=== PATIENT | male | born 1935 | race Caucasian/White ===

== ENCOUNTER → 2019-07-06 14:53 | Outpatient (CLI) | payer MEDICARE, OTHER, SELFPAY ==
[2019-06-16 12:41] VITALS: BMI 31.6
--- NOTE | 2019-07-06 14:54 | RAD_ITS ---
STUDY: X-RAY - PELVIS AND RIGHT HIP REASON FOR EXAM: Male, 84 years old. RIGHT HIP AND KNEE PAIN, DIFFICULTY STRAIGHTENING RT LEG TECHNIQUE: History views of the pelvis and hip. COMPARISON: None. FINDINGS: There is severe osteoarthritis of the right hip joint degenerative narrowing of the superior, axial and inferior compartments of the joint with buttressing of the femoral neck. There are no fractures. There are minimal degenerative changes of the left hip joint. The superior and inferior pubic rami are normal. Both sacroiliac joints are normal. RAD/HIP, UNI W/ Pelvis 2-3 Views IMPRESSION: Severe osteoarthritis of the right hip joint. No fracture Electronically Signed: Eddie Elliott MD at 3:06 EST Tel , Service support ,
--- NOTE | 2019-07-06 14:54 | RAD_ITS ---
STUDY: X-RAY - RIGHT KNEE REASON FOR EXAM: Male, 84 years old. RIGHT HIP AND KNEE PAIN, DIFFICULTY STRAIGHTENING RT LEG TECHNIQUE: 4 view(s) of the knee. COMPARISON: None. FINDINGS: The bony enthesophytes from the superior and inferior margins of the patella with mild soft tissue swelling in the prepatellar region. The quadriceps and patellar tendons are normal. There is no knee joint effusion. There are no acute fractures or dislocations. RAD/Knee 4 or More Views IMPRESSION: No fractures. No knee joint effusion. Small bony enthesophytes from the superior and inferior margins of the patella Electronically Signed: Eddie Elliott MD at 7:48 EST Tel , Service support ,
== END ==
LOC: HPRAD 14:54
PROVIDERS: PCP Internal Medicine; Referring Provider Orthopaedic Surgery; Visit Provider Orthopaedic Surgery
DX: M25.551 Pain in right hip (principal); M25.561 Pain in right knee
CPT/HCPCS: 73502; 73564

== ENCOUNTER → 2019-08-09 | Outpatient (CLI) | payer MEDICARE, OTHER, SELFPAY ==
[2019-08-08 12:54] VITALS: BMI 32.1
[2019-08-09 17:51] LABS: BNP,B-Type NATRIURETIC PEPTIDE 90.4 pg/mL (0-100)
[2019-08-09 17:56] LABS: Anion Gap 2 (5-15); BUN 17 mg/dL (7-18); BUN/Creat Ratio 19.2 RATIO (10-20); Calcium,Total 9.5 mg/dL (8.5-10.1); Chloride 104 mmol/L (98-107); Creatinine, Serum 0.89 mg/dL (0.70-1.30); EST Glomerular Filtration Rate 87 mL/min (>60); Est Glom Filt Rate - Afr Amer 106 mL/min (>60); Glucose 112 mg/dL (74-106); Potassium 3.5 mmol/L (3.5-5.1); Sodium Level 139 mmol/L (136-145)
== END | disposition home or self-care (01) ==
LOC: MTLAB 14:43
PROVIDERS: PCP Internal Medicine; Referring Provider Physician Assistant Medical; Visit Provider Physician Assistant Medical
DX: I11.0 Hypertensive heart disease with heart failure (principal); I50.30 Unspecified diastolic (congestive) heart failure
CPT/HCPCS: 36415; 80048; 83880

== ENCOUNTER 2019-08-19 15:00 | Outpatient (RCR) | payer MEDICARE, OTHER, SELFPAY ==
[2019-07-06 14:56] VITALS: BMI 31.6
--- NOTE | 2019-07-13 15:09 | HP.PTEVAL ---
Patient's Visit Information MADINA CHOWDHURY is a 84 year old M referred to Physical Therapy by Venkat Hernandez DO with a diagnosis of R hip OA. Date of Evaluation: 07/13/19 Physical Therapist: Randy Velarde PT, ATC - Visit Plan Frequency: 2-3x /Week Duration: 4-6 Weeks Plan: R LE stretching (HS's, ITband, sartorius), strengthening, DTR, line patroller, foam roller, and HEP - Subjective Findings: Pt reports he has been dealing with R hip pain for several years. Pt reports he has had xrays which revealed bone on bone. Pt reports he also feels as though he has very tight musculature in his LE's. Pt reports he has difficulty with sleep secondary to pain and has to sleep on a chair secondary to hip pain. Pt reports he believes he injured his R LE from an injury where his loaded and seperated his R Leg from his L LE. Pt reports his R LE will on occasion feel like it is going to give out on him. Pt reports he has to negotiate stairs one step at a time. Pt reports he is also not able to drive secondary to pain. 2/10 at rest, 7/10 at worst. - Pain R hip Pain Intensity (Out of 10): 2 Pain Intensity Range: 7 - Objective Neuro: B LE sensation is WNL to light touch. B achilles reflex= 2/3. Palpation: Sore on greater trochanter. No obvious deformity. MMT: B LE's grossly 4+/5. flexibility: Pt is severely limited with HS's, ITband, and quads - Goals Goal 1:: Decrease R hip pain x 50% to aid with sleep Goal Time Frame: 4-6 Weeks Goal 2:: Increase R LE flexibility x 1 grade to aid with decreasing R LE pain Goal Time Frame: 4-6 Weeks Goal 3:: Increase R LE strength x 1 grade to aid with decreasing R hip pain Goal Time Frame: 4-6 Weeks Goal 4:: I with HEP Goal Time Frame: 4-6 Weeks - Rehabilitation Potential Physical Therapy Diagnosis: R hip pain, weakness, and limited R hip ROM secondary to degenerative changes in R hip. Rehabilitation Potential: Good - Anticipated Interventions Patient/Client Instruction: Educate patient on: Condition, Plan of Care For the Purpose of:: To improve self management Therapeutic Exercise to Include: Strength training, Endurance training, Flexibilty training, Active ROM For the Purpose of:: To decrease pain, To increase ROM, To improve muscle performance and motor function Cryotherapy (ice pack, ice massage): Yes Thermo therapy (hot pack): Yes Ultrasound (thermal/non thermal): Yes For the Purpose of:: To decrease pain Thank you for the opportunity to evaluate your patient. For Medicare and Medicare HMO plans, please review the plan of care and approve it. It will need to be FAXED BACK to us at [phone] for Medicare purposes. For Medicare only, by signing this I certify the plan of care. Please let me know if there are questions or concerns regarding this plan of care. Physician Signature: Date:
--- NOTE | 2019-08-12 14:58 | HP.PTREVAL ---
Venkat Hernandez, DO, It has been my pleasure to treat MADINA CHOWDHURY over the last 14 visits for R hip OA. Please see the progress note below for an update on the physical therapy plan of care! Subjective: Pt reports he feels more confident with ambulation Objective/Function: R hip pain 08/15 this date. still occasional sleep difficulty at this time. R hip strength now 5/5 throughout. R LE flexibility now much improved. Pt is not I with HEP Plan Plan: Cont with 2 more appointments to focus on HEP Goals Goal 1:: Decrease R hip pain x 50% to aid with sleep Goal Time Frame: 4-6 Weeks Goal Progress: Goal Met Goal 2:: Increase R LE flexibility x 1 grade to aid with decreasing R LE pain Goal Time Frame: 4-6 Weeks Goal Progress: Goal Met Goal 3:: Increase R LE strength x 1 grade to aid with decreasing R hip pain Goal Time Frame: 4-6 Weeks Goal Progress: Goal Met Goal 4:: I with HEP Goal Time Frame: 4-6 Weeks Goal Progress: Progressing Anticipated Interventions Patient/Client Instruction: Educate patient on: Condition, Plan of Care For the Purpose of:: To improve self management Therapeutic Exercise to Include: Strength training, Endurance training, Flexibilty training, Active ROM For the Purpose of:: To decrease pain, To increase ROM, To improve muscle performance and motor function Cryotherapy (ice pack, ice massage): Yes Thermo therapy (hot pack): Yes Ultrasound (thermal/non thermal): Yes For the Purpose of:: To decrease pain Please do not hesitate to contact me at [phone] by phone or if you have questions or concerns regarding this new plan of care! Sincerely, Randy Velarde, PT, ATC
--- NOTE | 2019-08-19 15:46 | HP.PTDCSUM ---
It has been my pleasure to treat MADINA CHOWDHURY referred by Venkat Hernandez DO, with the diagnosis of R hip OA for a total of 16 visit(s). Discharge Date: Please see the following information for a summary of their discharge status. Subjective: I slept wrong on it last night R hip Pain Intensity (Out of 10): 6 % Improvement: 75 Objective/Function: Pt kaia Rx well. Pt now I with HEP Goal 1:: Decrease R hip pain x 50% to aid with sleep Goal Progress: Goal Met Goal 2:: Increase R LE flexibility x 1 grade to aid with decreasing R LE pain Goal Progress: Goal Met Goal 3:: Increase R LE strength x 1 grade to aid with decreasing R hip pain Goal Progress: Goal Met Goal 4:: I with HEP Goal Progress: Goal Met Plan: Discharge If there are questions or concerns regarding this patient's physical therapy, please feel free to call me at [phone]. Thank you for the referral of this patient. Sincerely, Randy Velarde, PT, ATC
== END 2019-08-19 19:00 | disposition home or self-care (01) ==
LOC: PT 15:00
PROVIDERS: PCP Internal Medicine; Visit Provider Orthopaedic Surgery
DX: M16.11 Unilateral primary osteoarthritis, right hip (principal); M70.61 Trochanteric bursitis, right hip; M62.48 Contracture of muscle, other site
CPT/HCPCS: 97110; 97161; 97164

== ENCOUNTER → 2020-01-05 | Outpatient (CLI) | payer MEDICARE, OTHER, SELFPAY ==
[2019-08-08 12:54] VITALS: BMI 32.1
[2019-12-22 11:26] VITALS: BMI 30.4
--- NOTE | 2020-01-05 12:49 | ECHOCS_ITS ---
Reason For Study: AFIB/FLUTTER Procedure This was a 2D Doppler, Color Flow transthoracic echocardiogram. The study was technically difficult. Due to poor accoustic windows. Contrast injection was performed. Exam performed in department. Left Ventricle Normal LV size. Mild concentric left ventricular hypertrophy. Left ventricular systolic function is normal. The estimated ejection fraction is 65 %. No regional wall motion abnormalities noted. Right Ventricle Normal RV size. Normal systolic function. Atria Normal left atrium. Normal right atrium. Mitral Valve Normal mitral valve. Tricuspid Valve Normal tricuspid valve. Pulmonic Valve Normal pulmonic valve. Great Vessels Normal aortic root. The pulmonary artery is normal size. Normal inferior vena cava. Pericardium/Pleural No pericardial effusion. Medication 22 gauge I.V. with prn adaptor inserted into right arm. Diluted definity 2.5ml given slow IV push to enhance endocardial definition. MMode/2D Measurements & Calculations LVIDd: 4.8 cm IVSd: 1.2 cm Ao root diam: 3.6 cm LVIDs: 2.8 cm LVPWd: 1.2 cm FS: 40.4 % LAV(MOD-bp): 72.0 ml LA A4 area: 19.9 cm2 LA dimension(2D): 4.1 cm LAV(MOD-bp) Indexed: 34.4 ml/m2 LAV(MOD-sp2): 86.7 ml LAV(MOD-sp4): 55.4 ml RA A4 area: 16.9 cm2 Time Measurements MV dec time: 0.13 sec Doppler Measurements & Calculations MV E max guilherme: 126.0 cm/sec PA V2 max: 86.2 cm/sec MV A max guilherme: 65.0 cm/sec MV E/A: 1.9 Interpretation Summary Normal LV size. Left ventricular systolic function is normal. The estimated ejection fraction is 65 %. Contrast injection was performed. Ordering Physician: Amador Dietrich Referring Physician: Marlin Cornelius Performed By: Anabel Guerrero RDCS, RVT
== END | disposition home or self-care (01) ==
LOC: CVS 12:49
PROVIDERS: PCP Internal Medicine; Referring Provider Physician Assistant Medical; Visit Provider Physician Assistant Medical
DX: I48.91 Unspecified atrial fibrillation (principal); I48.92 Unspecified atrial flutter; R60.0 Localized edema
CPT/HCPCS: 93306; Q9957; A4216; C8929

== ENCOUNTER 2021-01-04 07:17 | Outpatient (RCR) | payer MEDICARE, OTHER, SELFPAY ==
[2020-12-28 11:18] VITALS: BMI 31.3
--- NOTE | 2021-01-04 08:44 | HP.PTEVAL_ITS ---
Patient's Visit Information MADINA CHOWDHURY is a 85 year old M referred to Physical Therapy by Dr. Venkat Hernandez DO with a diagnosis of R hip OA. Date of Evaluation: 01/04/21 Physical Therapist: Randy Velarde, PT, ATC - Visit Plan Frequency: 1x/Week Duration: 1 Week Plan: I issued and instructed pt on a HEP of seated HS, quad, piriformis, and gastroc stretches. Pt is now I with those stretches and is discharged at this time. - Subjective Pt reports he has been in severe hip pain for a long time. Pt reports he will be getting a THR in the near future, but needs to increase strength and flexibility prior to surgery. Pt reports he often cramps up at nights and has difficulty with sleep secondary to R hip pain. Pt reports he has had to sleep in a chair for the past 2 years secondary to pain. Pt also notes he has significant difficulty with car transfers secondary to R hip complications. Pt notes he would have had this THR performed a long time ago but COVID hit and he was unable to consider that as an option at that time. No R LE tingling or numbness at this time. Pt notes he has stairs in his house to the basement that he does negotiate at times which are difficult and he notes he must negotiate them one step at a time. 3/10 pain at rest, 8/10 pain at its worst. - Pain R hip pain Pain Intensity (Out of 10): 3 Pain Intensity Range: 8 - Objective Neuro: B LE sensation is WNL to light touch. B patellar reflex= 1/3. MMT: R hip IR and ER= 3-/5, all other measurements 4/5. L hip 5/5 throughout. ROM: R hip i s moderately limited in all planes. L hip is WFL. Flexibility: Pt is moderately limited with all R LE. - Goals Goal 1:: I with HEP after eval - Rehabilitation Potential Physical Therapy Diagnosis: Pt has R hip pain, weakness, and limited ROM secondary to R hip OA Rehabilitation Potential: Excellent - Anticipated Interventions Patient/Client Instruction: Educate patient on: Condition, Plan of Care For the Purpose of:: To improve self management Therapeutic Exercise to Include: Flexibilty training For the Purpose of:: To decrease pain, To increase ROM Thank you for the opportunity to evaluate your patient. For Medicare and Medicare HMO plans, please review the plan of care and approve it. It will need to be FAXED BACK to us at [phone] for Medicare purposes. For Medicare only, by signing this I certify the plan of care. Please let me know if there are questions or concerns regarding this plan of care. Physician Signature: Date:
== END 2021-01-04 19:00 | disposition home or self-care (01) ==
LOC: PT 07:17
PROVIDERS: PCP Internal Medicine; Referring Provider Orthopaedic Surgery; Visit Provider Orthopaedic Surgery
DX: M16.11 Unilateral primary osteoarthritis, right hip (principal); M25.651 Stiffness of right hip, not elsewhere classified
CPT/HCPCS: 97110; 97161

== ENCOUNTER → 2021-01-22 13:34 | Outpatient (CLI) | payer MEDICARE, OTHER, SELFPAY ==
[2021-01-15 08:53] VITALS: BMI 32.3
--- NOTE | 2021-01-22 13:35 | CT_ITS ---
STUDY: CT SCAN LOWER EXTREMITY RIGHT REASON FOR EXAM: Male, 85 years old. Templating right SCOTTY RADIATION DOSAGE (If Supplied By Facility): CTDIvol = ( 23.38 ) mGy, DLP = ( 1387.24 ) mGycm. Individualized dose optimization techniques were used for this CT.? TECHNIQUE: Multiple axial tomographic images of the right lower extremity was obtained. Coronal and sagittal reconstructions obtained as well. COMPARISON: None. FINDINGS: There is a marked degree of joint space narrowing and osteoarthritis involving the right hip joint. Subchondral cysts are seen in the right femoral head and in the acetabulum. Marginal osteophytes are seen as well. Imaging of the right knee joint was obtained. Mild degree of joint space narrowing involving the medial compartment of the knee joint. CT/Extremity Lower without Contra IMPRESSION: Moderate degree of osteoarthritis involving the right hip joint. Electronically Signed: Tristin De La Torre MD at 15:42 EDT , Service support ,
== END ==
PROVIDERS: PCP Internal Medicine; Referring Provider Orthopaedic Surgery; Visit Provider Orthopaedic Surgery
DX: M16.11 Unilateral primary osteoarthritis, right hip (principal)
CPT/HCPCS: 73700

== ENCOUNTER 2021-02-05 16:14 | Inpatient (IN) | payer MEDICARE, OTHER, SELFPAY ==
[2021-01-15 08:53] VITALS: BMI 32.3
--- NOTE | 2021-01-30 12:37 | EKG12_ITS ---
Test Reason : PREOP Blood Pressure : / mmHG Vent. Rate : 070 BPM Atrial Rate : 357 BPM P-R Int : 000 ms QRS Dur : 146 ms QT Int : 436 ms P-R-T Axes : 000 -66 098 degrees QTc Int : 470 ms Ventricular-paced rhythm Abnormal ECG Confirmed by JUSTIN DONALD, CRISTOBAL ([id number]), editorial cartoonist KENNETH LUJAN ([id number]) on 01/31/2021 10:59:56 AM Referred By: Venkat Hernandez Confirmed By:CRISTOBAL ANDERSON MD
[2021-01-30 14:13] LABS: Absolute Lymphocyte Count 1.23 X10^3/uL (0.83-4.51); Absolute Neutrophil Count 3.5 X10^3/uL (2.0-7.7); Basophil# 0.08 X10^3/uL; Eosinophil# 0.16 X10^3/uL; Eosinophils% 2.1 % (0-5); Hematocrit 31.2 % (40-54); Hemoglobin 10.1 g/dL (13.0-16.5); Lymphocyte # 1.23 X10^3/ul (0.83-4.51); Lymphocyte % 15.8 % (19-41); Mean Corp Hgb Conc 32.4 g/dL (32-36); Mean Corpuscular Hgb 37.3 pg (27.0-32.0); Mean Corpuscular Volume 115.1 fL (80-94); Mean Platelet Vol. 12.4 fl (6.2-12.0); Monocyte# 2.68 X10^3/uL; Monocyte% 34.4 % (0-10); NRBC Flagged by Analyzer 0 % (0-5); Neutrophil # 3.46 X10^3/uL (2.7-7.7); Neutrophil % 44.5 % (47-70); POSITIVE DIFFERENTIAL YES; Platelet Count 139 K/mm3 (150-450); RBC Distribution Width CV 14.2 % (11.6-14.6); RBC Distribution Width SD 60.3 fl (35.1-43.9); Red Blood Count 2.71 M/mm3 (4.6-6.2); White Blood Count 7.8 K/mm3 (4.4-11.0)
[2021-01-30 14:15] LABS: Differential Indicated SCAN CRITERIA MET
[2021-01-30 14:22] LABS: International Normalized Ratio 1.2; Prothrombin Time (Protime)PT. 14.9 SECONDS (11.7-14.9)
[2021-01-30 14:23] LABS: Partial Thromboplast Time 34.9 Seconds (24.1-36.2)
[2021-01-30 14:33] LABS: Magnesium 2.1 mg/dL (1.6-2.6)
[2021-01-30 14:57] LABS: Anion Gap 4 (5-15); BUN 17 mg/dL (7-18); BUN/Creat Ratio 17.4 RATIO (10-20); Chloride 105 mmol/L (98-107); Creatinine, Serum 0.98 mg/dL (0.70-1.30); EST Glomerular Filtration Rate 78 mL/min (>60); Est Glom Filt Rate - Afr Amer 94 mL/min (>60); Glucose 90 mg/dL (74-106); Potassium 3.9 mmol/L (3.5-5.1); Sodium Level 140 mmol/L (136-145)
[2021-01-31 12:28] LABS: Pathologist Review Reviewed
[2021-02-01 10:46] LABS: Fructosamine 226 umol/L (0-285)
[2021-02-05] VITALS (11 sets, daily range): BP systolic 122–152; BP diastolic 56–79; PULSE 63–77; RESP 16–18; TEMP 36.1–37.3; O2SAT 97–100; BMI 32.1; BMI 32.2
[2021-02-05] MEDS: Lactated Ringers 1,000 ML 125 ML IV ×3 (10:00→22:39)
[2021-02-05] MEDS: Gabapentin 600 MG Tablet PO (10:17)
[2021-02-05] MEDS: Lactated Ringers 1,000 ML 999 ML IV (10:17)
[2021-02-05] MEDS: Acetaminophen 500 MG Tablet 1000 MG PO ×2 (10:17→22:41)
[2021-02-05] MEDS: Lactated Ringers 1,000 ML 100 ML IV (10:18)
[2021-02-05] MEDS: Scopolamine 1mg/72hr Patch 1 PATCH TD (10:18)
[2021-02-05 10:51] LABS: Bedside Glucose 108 mg/dL (70-110)
--- NOTE | 2021-02-05 12:30 | FEM_PTH ---
PATIENT: MADINA CHOWDHURY LOC: [facility] U#:[id number] AGE/SX: 85/M ROOM: CA321 RE02/05/[address]: Dr. Venkat Hernandez DO : 1935 BED: 1 DIS: 02/07/2021 SPEC #: [id number] RECD: 02/05/21 15:45 STATUS: ANISHA NELSON #: [id number] [place]: 02/05/21 12:[address]: Venkat Hernandez DEPT: SURGICAL PATHOLOGY RECD BY: Chinyere Moreno ENTERED: 02/06/21 13:12 SP TYPE: FEM HEAD OTHR DR: DO Dr. Angel Luis St MD Tissues: Femoral region, NOS Procedures: Decalcification bone/plaque Surgery Specimen Level V HEADER OPERATION: ERAS, total hip replacement robotic arm assist PRE-OP DIAGNOSIS: Degenerative joint disease of right hip TISSUE SUBMITTED: Right hip bone and soft tissue MICROSCOPIC DIAGNOSIS Bone and tissue of right hip, Total hip resection: Severe degenerative joint disease. AM;am 02/12/21 MICROSCOPIC DESCRIPTION Slides are reviewed. GROSS DESCRIPTION Received is one container labeled with the patient's name and designated right hip bone and soft tissue. The specimen consists of a puentes femoral head with portion of femoral neck. The femoral head measures 5 x 5 x 4.5 cm and the femoral neck measures 0.5 cm in length. The articular surface displays prominent osteophyte formation, eburnation and bone erosion. Also present in the specimen container are multiple irregular fragments of bone reamings and pink-yellow soft tissue measuring in aggregate 8 x 8 x 2.5 cm. Government Gauger sections are submitted in two cassettes as follows: 1 - soft tissue, 2 - bone after decalcification. / SONU:karma 02/06/21 TC:5 CPT: 54545, 98152
[2021-02-05] MEDS: dexAMETHasone 10 MG/ML Vial IV (13:03)
[2021-02-05] MEDS: Cefazolin 2 GM in 0.9% Normal Saline 100 ML IV (13:14)
--- NOTE | 2021-02-05 15:21 | OP.PCM_ITS ---
Report of Operation Date of Procedure: 02/05/21 Description of Surgical Findings:: Preoperative diagnosis: Right hip DJD Postoperative diagnosis: Same Procedure: CT-guided Makoplasty assisted right total hip arthroplasty Implants: Lincoln Accolade II stem size 7, 127 degree neck angle -5 neck length 62 mm Trident II acetabular shell with 35 mm cancellous screw 36 mm ceramic head Anesthesia: Spinal EBL: 200 cc Complications: None Condition: Stable to PACU Indication for procedure: This is a 85-year-old male who has had long-standing arthrosis of the hip who has failed conservative treatment and wished to undergo total hip arthroplasty. We did discuss operative versus nonoperative intervention including risks of bleeding, infection , nerve artery tissue damage, need for further surgery, fracture, leg length discrepancy dislocation blood clot and need for postoperative physical therapy and postoperative expectations. An informed consent was signed. Procedure: Patient was met in the preoperative holding area once again the operative extremity was identified by both patient and physician and was marked. Patient was met by anesthesia . Anesthesia was started. patient was then positioned in the lateral decubitus position on a well-padded pegboard with an axillary roll. All bony prominences were checked and padded. The patient was prepped and draped in the usual sterile fashion. A timeout was called to ensure the proper patient procedure and extremity were being contemplated. Anatomic landmarks were palpated and marked for a standard posterior lateral approach. Prior to this the ASIS was palpated and 3 fingerbreadths proximal to this 3 pins were placed at a 45 degree angle into the iliac crest with good purchase, stab incisions were made with a 15 blade into the skin prior to placement. The Makoplasty array was then secured. A 10 blade scalpel was used to make a posterior incision through the skin and subcutaneous tissue. retractors were used and electrocautery was used to maintain meticulous hemostasis and dissect full-thickness flaps until the gluteal fascia was reached. The gluteal fascia was incised in line with the gluteal fibers. The bursal tissue was then freed from the underside and a Charnley retractor was placed. The femoral trochanteric checkpoint was placed and leg length was assessed using the trochanteric checkpoint and an EKG lead that was placed on the knee prior to prepping the leg .the fat pad was then elevated off of the external rotators with electrocautery and the external rotators were dissected off of the greater trochanter including the piriformis and were tagged with #1 Ethibond for later repair. The joint capsule opened with posterior trapdoor technique. The hip was surgically dislocated. The measurement on the preoperative CT from the top of the lesser trochanter to the femoral neck cut was marked Hohmann was placed a round the lesser trochanter. A neck cutting guide was used to chayito the neck with a Bovie and an oscillating saw was used complete the femoral neck cut. The femoral head was then removed and sized. We then turned our attention to the acetabulum. A Bovie was used to make a perforation in the anterior joint capsule and a Demarco retractor was placed this was repeated in the 6 o'clock position and a wide kelsea was placed there. With a long handled knife the labral and pulvinar tissue were removed. We then registered the acetabulum with the pointing array and confirmed our landmarks. Once the socket was thoroughly prepared and labral tissue and pulvinar was removed we single reamed with the robotic arm. We then used the robotic arm to position the acetabular implant and impacted it into place under robotic guidance. We then proceeded to place a posterior superior screw by drilling first measuring and inserting the screw. We then inserted a trial liner. And turned our attention back to the femur at this point a femoral elevator was used. As well as a pointed wide Hohmann around the lesser trochanter and a Hohmann to help retract the gluteus medius. A box chisel was used to remove excess lateral neck followed by a canal finder and a lateralizing reamer. This was followed by sequential broaches. Attention was made of the version within the canal based on preoperative templating. Once the final broach was seated we then trialed reduced the hip it was determined that a 127 degree neck angle with a -5 neck length was the appropriate size as this was 5 mm longer than his preoperative length and for 3 mm shorter than his contralateral, when I had a 0 or a -2.5 I cannot achieve full extension of the hip therefore decided to meet him in the middle and lengthen him by 5 compared to his preop. . We then checked stability with shuck testing as well as flexion and internal rotation. then proceeded with hip extension and checked leg lengths at the knees and heels as well as with the trochanteric checkpoint and knee EKG lead. At this point trials were removed. A liner was inserted to the cup. The femoral stem was inserted. We re-trialed and then proceeded to impact the femoral head onto the Chu taper. We then surgically reduce the hip check stability again and leg lengths and were satisfied. Betadine rinse was allowed to sit for 5 minutes while everyone changed their gloves. Thorough irrigation was performed. Followed by closure of the external rotators with #2 FiberWire followed by closure of gluteal fascia with #1 Ethibond. 0 Vicryl fat stitches and 2-0 Vicryl subcutaneous stitches and sherman in the skin. A pulls were placed in the pin sites over the iliac crest with Xeroform 4 x 4 and OpSite. dressing was applied to incisional area with Mepilex Ag and an abduction pillow was placed. Patient tolerated the procedure well there was no intraoperative complications all counts were correct and the patient was brought back to the PACU in stable condition
--- NOTE | 2021-02-05 15:21 | PCM.HP.BLA ---
History and Physical Date of Admission: 02/05/21 Date of Service: 01/09/21 MR#:[id number]: MADINA CHOWDHURYRep #:[id number] Provider:Dr. Venkat Hernandez DOAge/Sex: 85/M Location:[place]:Signed Intake Vital Signs 01/09/21 13:47 Height 5 ft 8.31 in Weight: 202 lb 4 oz BMI 30.4 Intake Visit Reasons: RIGHT HIP Accompanied by: Spouse Allergies pine Allergy (Uncoded 12/28/20 11:24) Shortness of breath Medications flaxseed oil-omega 3,6,9 1 ea PO BID 05/22/14 [History Confirmed 01/09/21] multivitamin with folic acid 1 tab PO DAILY 05/22/14 [History Confirmed 01/09/21] omega-3 fatty acids 500 mg PO DAILY 05/22/14 [History Confirmed 01/09/21] calcium-vitamin D3-vitamin K 500 mg-500 unit-40 mcg chewable tablet 2 tab PO QDAY ea 09/03/17 [History Confirmed 01/09/21] lisinopril 20 mg tablet 20 mg PO DAILY #90 tab 10/27/17 [Rx Confirmed 01/09/21] hydrochlorothiazide 25 mg tablet 25 mg PO DAILY 08/08/19 [History Confirmed 01/09/21] apixaban 5 mg tablet 5 mg PO BID #180 tab 11/10/20 [Rx Confirmed 01/09/21] glucosamine-chondroitin 500 mg-400 mg capsule 1 cap PO DAILY cap 12/28/20 [History Confirmed 01/09/21] [facility] Medical History (Updated 12/28/20 @ 12:[address] 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 Amador Dietrich MD) Smoking Status: Former smoker alcohol intake: current substance use type: does not use HPI RIGHT HIP Details: Parts of this documentation were recorded by a scribe, this documentation accurately reflects the service provided and the decisions made by me, Dr. Venkat Hernandez DO 01/09/21 0743. MADINA CHOWDHURY is a 85 year old M here today to discuss getting a hip replacement. Last hip x-ray: 12/28/20. Onset: two years. Pain is located lateral right hip. Patient did begin stretching exercises. Patient states he pushed himself too far with one of his exercises. Pain will intermittently radiate to his right thigh. Patient would like to discuss having a total right hip replacement. Denies previous spine surgery. Ortho Exam General General: Yes no acute distress and Yes well groomed Neurologic: Yes alert and Yes oriented x3 Psychologic: Yes reasonable and appropriate Right Hip HIP: Right Knee Skin/Wound: Yes swelling Knee ROM: Yes ROM-Extension -20 to 0 Examination: No Med jt line tenderness and No Lat jt line tenderness KNEE: no joint effusion collaterals are good Right Hip Skin: No soft tissue swelling and No Erythema internal rotation @90 degree flexion: 0 degrees external rotation @90 degree extension: 20 degrees HIP: Significant hip stiffness with reproduction of pain with hip range of motion He does have bilateral lower extremity edema worse on the left Supplemental Info 07/06/2019 x-ray right hip: severe femoral acetabular DJD [id number] superiorly 07/06/2019 x-ray right knee: Mild degenerative changes worse patellofemoral Coding Level of Care Code Off vis,est,level 3 Diagnoses Degenerative joint disease of right hip M16.11 Osteoarthritis type: primary Assessment and Plan Assessment and Plan (1) Degenerative joint disease of right hip: Status: Acute Qualifiers: Osteoarthritis type: primary Qualified Code(s): M16.11 - Unilateral primary osteoarthritis, right hip Plan - Dr. Venkat Hernandez DO: Personally reviewed the patient's medical history, medications, surgeries and recent exams if available. Patient has advanced right hip arthrosis and is failed conservative treatment. We did discuss risk benefits and alternatives of total hip arthroplasty including risk of bleeding infection nerve artery tissue damage need for further surgery continued pain postoperative hip precautions leg length discrepancy and post operative expected course. Due to his anticoagulation status and cardiac history and age patient will be full admission. We will need to obtain a cardiac clearance preoperatively in addition he will need to be off his Eliquis for 72 hours preoperatively and will resume this 12 hours postoperatively. Although he is not supposed to be taking NSAIDs he does occasionally take Motrin we did mortgage loan counselor him on this and he should definitely not take any for 7 days prior surgery. We will also need to obtain a preoperative CT scan for the use of the MAKOplasty robotic equipment Patient's goal is to be ambulatory and without any restrictions by Nickie when his daughter is to arrive I think we will be able to make this goal ahead of time . Explained patient cannot take any NSAIDs seven days prior to surgery. Patient may take Tylenol up until the day of surgery. Patient can take two of the Extra Strength Tylenol four times day. Advised patient will use a walker post-op and then will be transitioned to a cane. All questions answered. Patient in agreement of plan. Follow up two weeks post-op or sooner if pain, swelling, numbness or associated symptoms, or concerns develop. 01/09/21 1424<Electronically signed by Venkat Hernandez DO>Date Venkat Hebertigner Signature:Date I have re-examined the patient. There are no clinical changes since date of exam
--- NOTE | 2021-02-05 15:40 | RAD_ITS ---
STUDY: X-RAY - PELVIS AND RIGHT HIP REASON FOR EXAM: Male, 85 years old. Post Op -- AP both hips on single aissatou/lateral of op hip PACU TECHNIQUE: 2 views of the pelvis and hip. COMPARISON: Pelvic x-ray dated December 28, 2020 FINDINGS: Status post surgical resection of the right femoral head and neck. The proximal one third femoral prosthetic component is well placed within the intramedullary cavity as well as the acetabular cup. Both prosthetic components demonstrate good bony contact and alignment. Expected postoperative changes of the overlying soft tissues including gas and swelling. Surgical sherman are also present. No occult fracture seen. Mild osteophytic changes of the left hip joint noted. RAD/Hip Min 2 Views (Portable) IMPRESSION: Status post right hip arthroplasty. Electronically Signed: Maury Grijalva MD at 17:33 EDT , Service support ,
[2021-02-05] MEDS: Cefazolin 1 GM/50 ML BAG IV (18:12)
[2021-02-05] MEDS: Ketorolac 15 MG/ML Vial IV (19:57)
[2021-02-05] MEDS: 0.9% NaCl Peripheral Flush Adult/Peds IV (19:58)
[2021-02-05] MEDS: Senna/Docusate Sodium 1 Tablet 2 TABLET PO (22:41)
[2021-02-06 01:37] VITALS: BMI 32.1
[2021-02-06] MEDS: Cefazolin 1 GM/50 ML BAG IV ×2 (01:52→11:01)
--- NOTE | 2021-02-06 02:10 | NURSING ---
Patient unable to void for 6-8 hours post surgery. Bladder scanned for 771, straight cath placed per order and 1L of clear dark yellow urine was drained. Procedure well tolerated.
[2021-02-06] MEDS: Ketorolac 15 MG/ML Vial IV (02:41)
[2021-02-06] MEDS: 0.9% NaCl Peripheral Flush Adult/Peds IV (02:43)
[2021-02-06 03:00] VITALS: BP 112/53; PULSE 70; RESP 18; TEMP 37.3; O2SAT 95
[2021-02-06] MEDS: oxyCODONE 5 MG Tablet PO (04:09)
[2021-02-06 05:37] VITALS: BMI 32.1
[2021-02-06] MEDS: Acetaminophen 500 MG Tablet 1000 MG PO ×3 (06:46→21:48)
[2021-02-06] MEDS: APIXABAN 5 MG TABLET PO ×3 (06:47→21:48)
[2021-02-06 07:05] LABS: Hematocrit 25.8 % (40-54); Hemoglobin 8.3 g/dL (13.0-16.5); Mean Corp Hgb Conc 32.2 g/dL (32-36); Mean Corpuscular Hgb 37.7 pg (27.0-32.0); Mean Corpuscular Volume 117.3 fL (80-94); Mean Platelet Vol. 12.3 fl (6.2-12.0); Platelet Count 149 K/mm3 (150-450); RBC Distribution Width CV 14.3 % (11.6-14.6); RBC Distribution Width SD 61.9 fl (35.1-43.9); White Blood Count 13.5 K/mm3 (4.4-11.0)
[2021-02-06 07:32] LABS: Anion Gap 9 (5-15); BUN 21 mg/dL (7-18); BUN/Creat Ratio 15.3 RATIO (10-20); Calcium,Total 8.7 mg/dL (8.5-10.1); Chloride 105 mmol/L (98-107); Creatinine, Serum 1.37 mg/dL (0.70-1.30); EST Glomerular Filtration Rate 53 mL/min (>60); Est Glom Filt Rate - Afr Amer 64 mL/min (>60); Estimated Creatinine Clearance 39.53 ml/min; Glucose 122 mg/dL (74-106); Potassium 3.7 mmol/L (3.5-5.1); Sodium Level 139 mmol/L (136-145)
[2021-02-06 09:00] VITALS: BP 111/67; PULSE 80; RESP 18; TEMP 36.6; O2SAT 98
[2021-02-06 09:37] VITALS: BMI 32.1
[2021-02-06] MEDS: Senna/Docusate Sodium 1 Tablet 2 TABLET PO ×2 (10:49→21:48)
[2021-02-06] MEDS: Lactated Ringers 1,000 ML 125 ML IV ×2 (10:49→11:01)
--- NOTE | 2021-02-06 11:14 | PCM.PN.HOSP ---
Subjective Subjective Confused last and pt was having hallucinations of someone getting out of semitruck wearing erwin with a camping bag outside of his room last night. Doing better today. Objective Data Objective Data Vital Signs: Vital Signs Temp Pulse Resp BP Pulse Ox 36.6 C 80 18 111/67 98 02/06/21 09:00 02/06/21 09:00 02/06/21 09:00 02/06/21 09:00 02/06/21 09:00 Oxygen Flow Rate (L/min) 6 Oxygen Delivery Method Room Air Weight: 96.116 kg Body Mass Index (BMI) 32.2 Intake & Output: Intake and Output for Last 24 Hours 02/04/21 02/05/21 02/06/21 23:59 23:59 23:59 Intake Total 4386 / 4386 1075 / 1075 Output Total 1000 / 1000 Balance 4386 / 4386 75 / 75 Lab / Micro Data Result Diagrams: 02/06/21 06:26 02/06/21 06:26 Labs: Laboratory Results - last 24 hr 02/06/21 06:26: WBC 13.5 H, RBC 2.20 L, Hgb 8.3 L, Hct 25.8 L, MCV 117.3 H, MCH 37.7 H, MCHC 32.2, RDW Std Deviation 61.9 H, RDW Coeff of Humza 14.3, Plt Count 149 L, MPV 12.3 H 02/06/21 06:26: Sodium 139, Potassium 3.7, Chloride 105, Carbon Dioxide 25.0, Anion Gap 9, BUN 21 H, Creatinine 1.37 H, Estim Creat Clear Calc 39.53, Est GFR (MDRD) Af Amer 64, Est GFR (MDRD) Non-Af 53 L, BUN/Creatinine Ratio 15.3, Glucose 122 H, Calcium 8.7 Micro: Microbiology 01/30/21 13:28 Swab (Method) Nasal Screen MRSA/MSSA - Final Radiography Diagnostic Testing: Radiology Impression Hip X-Ray 02/05/21 15:40 IMPRESSION: Status post right hip arthroplasty. Electronically Signed: Maury Grijalva MD at 17:33 EDT , Service support , Physical Exam Const alert HEENT Head and Scalp: normocephalic Resp normal respiratory effort, no retractions, no use of accessory muscles and clear to auscultation bilaterally Cardio regular rate, regular rhythm, S1 normal heart sound and S2 normal heart sound GI normal to inspection, nondistended, normoactive bowel sounds, soft to palpation, non-tender and non-distended Assessment & Plan Assessment/Plan (1) Encephalopathy: PLAN: 1. encephalopathy resolved likely toxic due to medications/anesthesia no further work up at this time. 2. HTN stable continue lisinopril/HCTZ 3. s/p Right hip arthroplasty mgmt per ortho 4. VTE prophylaxis: per queenie apixaban DW pt's / Medically stable for discharge. Charges/Coding Visit Charges Inpatient E&M: 28996 Subs Hosp L2
--- NOTE | 2021-02-06 11:34 | CASEMGMT ---
ELAINE PONCE Assessment: Face to Face with pt for initial transition planning/care coordination assessment. ELAINE PONCE introduced self and role at [facility], pt voices understanding and consents to assessment. Pt is A/O x4 and answers all questions appropriately at this time. Pt sitting up in chair with at bedside. Care providers, pharmacy, and demographics verified/updated. Admitting Dx: R total hip robotic PCP: Kana Specialists:queenie Hernandez; Karlo, cardio Preferred Pharmacy: [facility] while inpatient Insurance: [employer], [facility] Prescription Benefit: yes LW/HPOA: Pt states he has a LW/DPOA. He states his DPOA is his Cindi Matthews. He is aware he can bring that in any time to be scanned in to his chart. LNOK: Cindi Matthews, Living Arrangements: Pt lives with in a single story house with 3 steps to enter without a rail. Pt states he has a plan on how to get into his home, then he does not have any steps in the main living area. Pt reports he was I in ADL's prior to surgery. He denies concerns at home. Transportation: Pt drives self and denies concerns with transportation. His is able to transport him. DME/HHC/SNF: Pt has 2 canes, a rented FWW, trf bench and hand held shower. Pt denies hx of HHC or SNF stay. Pt states he is set up with outpatient therapy at [facility] starting tomorrow. Pt states no concerns with going home at time of dc. Pt states no further concerns/needs. CM to follow. Advised pt to ask CM if any further question/concerns/needs arise, voices understanding. Pt Goal: Home with outpt therapy Plan: Home with outpt therapy
[2021-02-06] MEDS: Lisinopril 20 MG Tablet PO (11:44)
[2021-02-06] MEDS: hydroCHLOROthiazide 25 MG Tablet PO (11:45)
--- NOTE | 2021-02-06 12:52 | PCM.PN.ORT ---
Subjective Subjective Patient doing okay in terms of pain control. Had difficult evening with hallucinations still has slight confusion today but feeling better. Denies fevers chills nausea vomiting or chest pain. Objective Data Objective Data Vital Signs: Vital Signs Temp Pulse Resp BP Pulse Ox 97.9 F 80 18 111/67 98 02/06/21 09:00 02/06/21 09:00 02/06/21 09:00 02/06/21 09:00 02/06/21 09:00 Oxygen Flow Rate (L/min) 6 Oxygen Delivery Method Room Air Weight: 211 lb 14.4 oz Body Mass Index (BMI) 32.2 Intake & Output: Intake and Output for Last 24 Hours 02/04/21 02/05/21 02/06/21 23:59 23:59 23:59 Intake Total 4386 / 4386 1125 / 1125 Output Total 1000 / 1000 Balance 4386 / 4386 125 / 125 Lab / Micro Data Result Diagrams: 02/06/21 06:26 02/06/21 06:26 Labs: Laboratory Results - last 24 hr 02/06/21 06:26: WBC 13.5 H, RBC 2.20 L, Hgb 8.3 L, Hct 25.8 L, MCV 117.3 H, MCH 37.7 H, MCHC 32.2, RDW Std Deviation 61.9 H, RDW Coeff of Humza 14.3, Plt Count 149 L, MPV 12.3 H 02/06/21 06:26: Sodium 139, Potassium 3.7, Chloride 105, Carbon Dioxide 25.0, Anion Gap 9, BUN 21 H, Creatinine 1.37 H, Estim Creat Clear Calc 39.53, Est GFR (MDRD) Af Amer 64, Est GFR (MDRD) Non-Af 53 L, BUN/Creatinine Ratio 15.3, Glucose 122 H, Calcium 8.7 Micro: Microbiology 01/30/21 13:28 Swab (Method) Nasal Screen MRSA/MSSA - Final Radiography Diagnostic Testing: Radiology Impression Hip X-Ray 02/05/21 15:40 IMPRESSION: Status post right hip arthroplasty. Electronically Signed: Maury Grijalva MD at 17:33 EDT , Service support , Physical Exam Const no apparent distress General Appearance: cooperative Extremity Extremity Narrative: Right hip dressing clean dry and intact compartments soft neurovascular intact right lower extremity Assessment & Plan Assessment/Plan (1) Encephalopathy: (2) Degenerative joint disease of right hip: QUALIFIERS: Osteoarthritis type: primary Qualified Code(s): M16.11 - Unilateral primary osteoarthritis, right hip (3) S/P total hip arthroplasty: QUALIFIERS: Laterality: right Qualified Code(s): Z96.641 - Presence of right artificial hip joint (4) Creatinine elevation: PLAN: PT OT weightbearing as tolerated hip precautions. Patient has multiple steps at home and feels he would benefit from additional therapy. Postoperative delirium last evening feels better now still with some confusion according to Elevated creatinine postoperatively. DC'd IV Toradol. oral hydration . Will recheck tomorrow morning Advanced age Patient will likely be discharged home tomorrow morning. Eliquis 2.5 mg twice daily 3 weeks
[2021-02-06 13:37] VITALS: BMI 32.1
[2021-02-06 17:24] VITALS: BMI 32.1
[2021-02-06 20:09] VITALS: BP 116/55; PULSE 70; RESP 16; TEMP 36.8; O2SAT 99
[2021-02-06 21:37] VITALS: BMI 32.1
[2021-02-07] MEDS: oxyCODONE 5 MG Tablet PO ×2 (01:55→09:51)
[2021-02-07 02:09] VITALS: BP 131/59; PULSE 70; RESP 16; TEMP 36.6; O2SAT 94
[2021-02-07] MEDS: Acetaminophen 500 MG Tablet 1000 MG PO (05:37)
[2021-02-07 07:03] LABS: Hematocrit 25.4 % (40-54); Hemoglobin 8.3 g/dL (13.0-16.5); Mean Corp Hgb Conc 32.7 g/dL (32-36); Mean Corpuscular Hgb 37.9 pg (27.0-32.0); Mean Platelet Vol. 12.1 fl (6.2-12.0); Platelet Count 148 K/mm3 (150-450); RBC Distribution Width CV 14.7 % (11.6-14.6); RBC Distribution Width SD 61.3 fl (35.1-43.9); Red Blood Count 2.19 M/mm3 (4.6-6.2); White Blood Count 14.7 K/mm3 (4.4-11.0)
--- NOTE | 2021-02-07 07:05 | PCM.PN.ORT ---
Subjective Subjective Patient seen and examined. He is doing much better today. He no longer feels confused. He is also urinating much better as he was having difficulty yesterday. His pain is controlled he is ambulating. Objective Data Objective Data Vital Signs: Vital Signs Temp Pulse Resp BP Pulse Ox 97.9 F 70 16 131/59 H 94 02/07/21 02:09 02/07/21 02:09 02/07/21 02:09 02/07/21 02:09 02/07/21 02:09 Oxygen Flow Rate (L/min) 6 Oxygen Delivery Method Room Air Weight: 211 lb 14.4 oz Body Mass Index (BMI) 32.2 Intake & Output: Intake and Output for Last 24 Hours 02/05/21 02/06/21 02/07/21 23:59 23:59 23:59 Intake Total 4386 / 4386 2747.92 / 2747.92 Output Total 1000 / 1000 600 / 600 Balance 4386 / 4386 1747.92 / 1747.92 -600 / -600 Lab / Micro Data Result Diagrams: 02/06/21 06:26 02/06/21 06:26 Labs: Laboratory Results - last 24 hr 02/06/21 06:26: WBC 13.5 H, RBC 2.20 L, Hgb 8.3 L, Hct 25.8 L, MCV 117.3 H, MCH 37.7 H, MCHC 32.2, RDW Std Deviation 61.9 H, RDW Coeff of Humza 14.3, Plt Count 149 L, MPV 12.3 H 02/06/21 06:26: Sodium 139, Potassium 3.7, Chloride 105, Carbon Dioxide 25.0, Anion Gap 9, BUN 21 H, Creatinine 1.37 H, Estim Creat Clear Calc 39.53, Est GFR (MDRD) Af Amer 64, Est GFR (MDRD) Non-Af 53 L, BUN/Creatinine Ratio 15.3, Glucose 122 H, Calcium 8.7 Micro: Microbiology 01/30/21 13:28 Swab (Method) Nasal Screen MRSA/MSSA - Final Physical Exam Const alert and oriented x3 General Appearance: cooperative Extremity Extremity Narrative: Right hip dressing clean dry intact compartments soft neurovascular intact Assessment & Plan Assessment/Plan (1) S/P total hip arthroplasty: QUALIFIERS: Laterality: right Qualified Code(s): Z96.641 - Presence of right artificial hip joint (2) Creatinine elevation: (3) Encephalopathy: PLAN: Patient is doing better today in regards to confusion and urination he is likely okay for discharge home. A.m. labs are not back yet upon review of these labs he was likely be discharged home. Follow-up in the office in 2 weeks
--- NOTE | 2021-02-07 07:07 | PCM.DC ---
Discharge Instructions Activity Weight Bearing Status: Weight bearing as tolerated Keep extremity elevated above heart level: Operative Extremity Dressing / Incision Call your doctor if you observe: Shortness of breath and Chest pain Remove Dressing in: 1 day Additional Dressing/Incision Instructions:: Do not shower 72hrs. Begin daily showering warm water antibacterial soap postop day #3( 72hrs Post-operatively) and then daily. Leave the dressing on for 72 hours postoperatively then may remove prior to first shower and change dressing daily after this until no drainage for 2 consecutive days then may leave open to air. Follow hip precautions that were reviewed in hospital. Wear compression stockings, may remove at night. Start physical therapy as directed in hospital. Follow prescriptions instructions do not take any other pain medication or differ dosing without consulting your physician. Do not take oral NSAIDs until blood thinner has been completed , then may begin the day after completion if needed . Call Dr. Hernandez's office with any concerns. Follow Up Care Please Follow Up With: Venkat Hernandez DO When: 2 weeks Test Results: Test results from this visit will be discussed in further detail at your follow-up appointment, if applicable. Discharge Plan Admission Admit Date/Time: 02/05/21 16:14 Attending Provider: Venkat Hernandez Primary Care Provider: Angel Luis Roger Consulting Providers: Mitesh Hodges Discharge Orders/Prescriptions Prescriptions: New acetaminophen 500 mg Tablet 1,000 mg PO Q8 Qty: 90 RF: 0 oxycodone 5 mg Tablet 5 - 10 mg PO Q4H PRN PRN (Reason: Pain Score 4-10) 7 Days Qty: 60 RF: 0 Continued hydrochlorothiazide 25 mg tablet 25 mg PO DAILY RF: 0 omega-3 fatty acids Capsule 1,000 mg PO DAILY RF: 0 vqumdgusfpvg-jdd-cpuhfez-FA 200-0.4 mg Tablet,Chewable 2 tab PO DAILY RF: 0 Centrum Silver Men 300-600-300 mcg Tablet 1 tab PO DAILY RF: 0 Glucosamine Chondroitin 550-30-1 mg Capsule 1 cap PO DAILY RF: 0 lisinopril 20 mg tablet 20 mg PO DAILY Qty: 90 RF: 3 apixaban 5 mg tablet 5 mg PO BID Qty: 180 RF: 3 Referrals / Follow Up: Angel Luis Roger MD [Primary Care Provider] -
[2021-02-07 07:25] LABS: Anion Gap 7 (5-15); BUN 33 mg/dL (7-18); BUN/Creat Ratio 31.4 RATIO (10-20); Calcium,Total 8.4 mg/dL (8.5-10.1); Chloride 104 mmol/L (98-107); Creatinine, Serum 1.05 mg/dL (0.70-1.30); EST Glomerular Filtration Rate 72 mL/min (>60); Est Glom Filt Rate - Afr Amer 87 mL/min (>60); Estimated Creatinine Clearance 51.57 ml/min; Glucose 100 mg/dL (74-106); Sodium Level 139 mmol/L (136-145)
--- NOTE | 2021-02-07 09:10 | PCM.PN.HOSP ---
Subjective Subjective Feels well. No further hallucinations. Objective Data Objective Data Vital Signs: Vital Signs Temp Pulse Resp BP Pulse Ox 36.6 C 70 16 131/59 H 94 02/07/21 02:09 02/07/21 02:09 02/07/21 02:09 02/07/21 02:02/07/21 02:09 Oxygen Flow Rate (L/min) 6 Oxygen Delivery Method Room Air Weight: 96.116 kg Body Mass Index (BMI) 32.2 Intake & Output: Intake and Output for Last 24 Hours 02/05/21 02/06/21 02/07/21 23:59 23:59 23:59 Intake Total 4386 / 4386 2747.92 / 2747.92 Output Total 1000 / 1000 600 / 600 Balance 4386 / 4386 1747.92 / 1747.92 -600 / -600 Lab / Micro Data Result Diagrams: 02/07/21 06:46 02/07/21 06:46 Labs: Laboratory Results - last 24 hr 02/07/21 06:46: WBC 14.7 H, RBC 2.19 L, Hgb 8.3 L, Hct 25.4 L, MCV 116.0 H, MCH 37.9 H, MCHC 32.7, RDW Std Deviation 61.3 H, RDW Coeff of Humza 14.7 H, Plt Count 148 L, MPV 12.1 H 02/07/21 06:46: Sodium 139, Potassium 4.0, Chloride 104, Carbon Dioxide 28.0, Anion Gap 7, BUN 33 H, Creatinine 1.05, Estim Creat Clear Calc 51.57, Est GFR (MDRD) Af Amer 87, Est GFR (MDRD) Non-Af 72, BUN/Creatinine Ratio 31.4 H, Glucose 100, Calcium 8.4 L Micro: Microbiology 01/30/21 13:28 Swab (Method) Nasal Screen MRSA/MSSA - Final Physical Exam Const alert Assessment & Plan Assessment/Plan (1) Encephalopathy: PLAN: 1. encephalopathy resolved likely toxic due to medications/anesthesia no further work up at this time. 2. HTN stable continue lisinopril/HCTZ 3. s/p Right hip arthroplasty mgmt per ortho 4. VTE prophylaxis: per ortho, apixaban Medically stable for discharge. Will sign off. Charges/Coding Visit Charges Inpatient E&M: 83205 Subs Hosp L1
[2021-02-07] MEDS: Lisinopril 20 MG Tablet PO (09:51)
[2021-02-07] MEDS: hydroCHLOROthiazide 25 MG Tablet PO (09:51)
[2021-02-07] MEDS: APIXABAN 5 MG TABLET PO (09:51)
[2021-02-07 09:54] VITALS: BP 105/57; PULSE 71; RESP 14; TEMP 36.4; O2SAT 97
== END 2021-02-07 12:53 | disposition home or self-care (01) | DRG 469 ==
LOC: SDC 16:47 → MS3 16:47
PROVIDERS: Admitting Provider Orthopaedic Surgery; PCP Internal Medicine; Referring Provider Orthopaedic Surgery; Visit Provider Orthopaedic Surgery
PROC: 8E0Y0CZ Robotic Assisted Procedure of Lower Extremity, Open Approach (ICD-10-PCS; CPT 27130; principal; 2021-02-05 12:00)
DX: M16.11 Unilateral primary osteoarthritis, right hip (principal); G92 Toxic encephalopathy; N17.9 Acute kidney failure, unspecified; I50.32 Chronic diastolic (congestive) heart failure; I11.0 Hypertensive heart disease with heart failure; I48.0 Paroxysmal atrial fibrillation; Z79.02 Long term (current) use of antithrombotics/antiplatelets; Z79.899 Other long term (current) drug therapy; Z87.891 Personal history of nicotine dependence
CPT/HCPCS: 36415; 73502; 80048; 82962; 82985; 83735; 85025; 85027; 85610; 85730; 86850; 86900; 86901; 87077; 87081; 88307; 88311; 93005; 97110; 97116; 97162; 97166; 97530; 97535; 99251; C1776; J7120; A4216; G0463

== ENCOUNTER 2021-03-26 11:00 | Outpatient (RCR) | payer MEDICARE, OTHER, SELFPAY ==
[2021-01-15 08:53] VITALS: BMI 32.3
--- NOTE | 2021-02-12 16:45 | HP.PTEVAL ---
Patient's Visit Information MADINA CHOWDHURY is a 85 year old M referred to Physical Therapy by Dr. Venkat Hernandez DO with a diagnosis of R SCOTTY. Date of Evaluation: 02/07/21 Physical Therapist: Randy Velarde, PT, ATC - Visit Plan Frequency: 2-3x /Week Duration: 4-6 Weeks Plan: R LE stretching and strengthening, balance and prorio, core stab ex's, nustep, and HEP - Subjective DOS: 02/05/21. Pt reports he had a long Hx of R hip pain for greater than 2 years . Pt reports he is very glad to have had the surgery at this time. Pt reports he had a very bad reaction to the anesthesia while in the hospital and is just starting to feel a little better. Pt reports he is still in a lot of pain at this time. Pt reports he has been following the precautions of not bending beyond 90, not crossing legs, and not rotating on R LE. No tingling or numbness in R LE at this time. Pt reports he has had sleep difficulty secondary to pain. Pt notes he has 3 stairs into his house that he negotiates one step at a time. Pt reports he and his like to go on walks, and he hopes they can return to that soon. 2/10 pain at rest, 10/10 pain at worst (when I move wrong) - Pain R hip Pain Intensity (Out of 10): 2 Pain Intensity Range: 10 - Objective Neuro: B LE sensation is WNL to light touch. B bicepital reflex= 2/3. ROM: R hip flex= 65, ext= 0; L hip flex 90, ext= 20. MMT: R hip flex= 1, ext= 5.3: L hip flex= 17.5, ext= 23. Gait: Pt reports pain after walking 120'. Slow cadance, WW - Balance/Special Test Scores Lower Extremity Functional Score: 0 - Goals Goal 1:: Decrease R hip pain x 50% to aid with sleep Goal Time Frame: 4-6 Weeks Goal 2:: Increase R hip strength x 1 grade to aid with stair negotiation Goal Time Frame: 4-6 Weeks Goal 3:: Pt will be able to ambulate greater than 600 feet to aid wioth community ambulation Goal Time Frame: 4-6 Weeks Goal 4:: I with HEP Goal Time Frame: 4-6 Weeks - Rehabilitation Potential Physical Therapy Diagnosis: Pt has R hip pain, weakness, and limited ROM secondary to R SCOTTY Rehabilitation Potential: Good - Anticipated Interventions Patient/Client Instruction: Educate patient on: Condition, Plan of Care For the Purpose of:: To improve self management Therapeutic Exercise to Include: Strength training, Endurance training, Balance training, Flexibilty training, Gait and locomotor training, Active ROM, Dynamic Lumbar Stabilization For the Purpose of:: To decrease pain, To increase ROM, To improve muscle performance and motor function Cryotherapy (ice pack, ice massage): Yes For the Purpose of:: To decrease pain Thank you for the opportunity to evaluate your patient. For Medicare and Medicare HMO plans, please review the plan of care and approve it. It will need to be FAXED BACK to us at [phone] for Medicare purposes. For Medicare only, by signing this I certify the plan of care. Please let me know if there are questions or concerns regarding this plan of care. Physician Signature: Date:
--- NOTE | 2021-03-26 11:58 | HP.PTDCSUM ---
It has been my pleasure to treat MADINA CHOWDHURY referred by Dr. Venkat Hernandez DO, with the diagnosis of R SCOTTY for a total of 12 visit(s). Discharge Date: Please see the following information for a summary of their discharge status. Subjective: I am ready to continue with HEP R hip Pain Intensity (Out of 10): 1 % Improvement: 95 Objective/Function: R hip pain 06/17. R hip MMT: flex= 21#F, ext= 28#F. R hip ROM: flex= 80, ext= 10. Pt is now I with HEP Goal 1:: Decrease R hip pain x 50% to aid with sleep Goal Progress: Goal Met Goal 2:: Increase R hip strength x 1 grade to aid with stair negotiation Goal Progress: Goal Met Goal 3:: Pt will be able to ambulate greater than 600 feet to aid wioth community ambulation Goal Progress: Goal Met Goal 4:: I with HEP Goal Progress: Goal Met Plan: Discharge to HEP If there are questions or concerns regarding this patient's physical therapy, please feel free to call me at [phone]. Thank you for the referral of this patient. Sincerely, Randy Velarde, PT, ATC Balance/Gait/Functional tests - Balance/Special Test Scores Lower Extremity Functional Score: 39
== END 2021-03-26 19:00 | disposition home or self-care (01) ==
LOC: PT 11:00
PROVIDERS: PCP Internal Medicine; Referring Provider Orthopaedic Surgery; Visit Provider Orthopaedic Surgery
DX: Z47.1 Aftercare following joint replacement surgery (principal); Z96.641 Presence of right artificial hip joint
CPT/HCPCS: 97016; 97110; 97161; 97164

== ENCOUNTER → 2022-04-07 | Outpatient (CLI) | payer MEDICARE, OTHER, SELFPAY ==
--- NOTE | 2022-04-07 13:46 | CT_ITS ---
STUDY: CT SCAN LOWER EXTREMITY LEFT REASON FOR EXAM: Male, 87 years old. Templating for left TKA. SUSY protocol. RADIATION DOSAGE (If Supplied By Facility): CTDIvol = ( 18.76 ) mGy, DLP = ( 1313.24 ) mGycm. Individualized dose optimization techniques were used for this CT.? TECHNIQUE: Multiple axial tomographic images of the left lower extremity were obtained without intravenous contrast menstruation. Coronal and sagittal reconstruction was obtained as well. COMPARISON: None. FINDINGS: Imaging of the left hip joint was obtained. There is evidence of a acetabular spur along the superior lateral aspect of the acetabulum. Mild degree of joint space narrowing. Imaging of the knee joint was obtained. There is a marked degree of joint space narrowing of the medial compartment of the knee joint. There are 2 well circumscribed bony densities in the joint space in comparison with loose intra-articular bodies. The larger bone density measures 5.9 mm. Mild degree of the patellofemoral joint space narrowing. Small joint effusion. Imaging of the ankle joint was obtained. There is evidence of plantar spurs. CT/Extremity Lower without Contra IMPRESSION: Marked degree of joint space narrowing involving the compartment of the knee joint with small joint effusion. 2. Small loose bodies are seen within the knee joint. Mild degree of joint space narrowing of the patellofemoral joint. Electronically Signed: Tristin De La Torre MD at 10:43 EDT ,
== END | disposition home or self-care (01) ==
LOC: CT 13:46
PROVIDERS: PCP Internal Medicine; Referring Provider Orthopaedic Surgery; Visit Provider Orthopaedic Surgery
DX: M17.12 Unilateral primary osteoarthritis, left knee (principal)
CPT/HCPCS: 73700

== ENCOUNTER 2022-04-08 16:31 | Emergency (ER) | payer MEDICARE, OTHER, SELFPAY ==
[2022-04-08 16:34] VITALS: BP 161/76; PULSE 70; RESP 18; TEMP 36.1; O2SAT 98; BMI 31.6
--- NOTE | 2022-04-08 17:19 | EDS_ITS ---
HPI History of Present Illness Chief Complaint: Nosebleed Informant: patient and spouse/S.O. Narrative Narrative: Patient had a recent URI. He was on antibiotics. Though stopped a little over a week ago. He is having intermittent nosebleeds alternating left and right side when he blew his nose. He was seen by Dr. Castro on Thursday. He was seen because they wanted to make sure he no longer had an infection so he could have a joint replacement. Dr. Castro cauterized a small spot on the right nare and a larger 1 on the left. Since then he has had occasional drops of blood with blowing his nose. Today at about noon he got out of the shower and blew his nose firmly. He got bleeding out of the left. Its been off and on since then. He states is almost coming completely out of the left. A couple times he had a few drops on the right but no active bleeding there. Patient is currently on Xarelto for history of A. fib. He used to be on apixaban. He has no other areas of bleeding. He does not feel weak or lightheaded. [facility] Medical History Alcohol use Ambulates with cane Anemia Back pain Bilateral lower extremity edema BPH (benign prostatic hyperplasia) Cancer Complete heart block Degenerative joint disease of right hip Diverticulosis Encephalopathy Essential (primary) hypertension Former smoker H/O cataract History of ulceration NSVT (nonsustained ventricular tachycardia) Obesity Paroxysmal atrial fibrillation Paroxysmal atrial flutter Wears glasses Home Medications hydrochlorothiazide 25 mg tablet 25 mg PO DAILY 08/08/19 [History Last Taken Unknown] glucosamine sulf dipot chlr,msm,chond 550 mg-C 30 mg-alok 1 mg capsule (Glucosamine Chondroitin) 1 cap PO DAILY SUPPLEMENT 02/06/21 [History Last Taken Unknown] jgjqxwmmpxfl-jsj-kajwmjq-FA 200 mg-0.4 mg chewable tablet 2 tab PO DAILY SUPPLEMENT 02/06/21 [History Last Taken Unknown] omega-3 fatty acids 1,000 mg PO DAILY SUPPLEMENT 02/06/21 [History Last Taken Unknown] acetaminophen 500 mg tablet 1,000 mg PO Q8 #90 tabs 02/07/21 [Rx Last Taken Unknown] calcium-vitamin D3-vitamin K 500 mg-200 unit-40 mcg chewable tablet tab PO BID 06/27/21 [History Last Taken Unknown] ferrous sulfate 325 mg (65 mg iron) tablet 325 mg PO Q OTHER DAY 06/27/21 [History Last Taken Unknown] flaxseed 1,000 mg capsule mg PO 06/27/21 [History Last Taken Unknown] lisinopril 10 mg tablet 10 mg PO DAILY 11/12/21 [History Last Taken Unknown] Kenalog 40 mg/mL suspension for injection (triamcinolone acetonide) 60 mg (1.5 mL) intra-articular ONCE #1.5 mL 02/05/22 [Clinic Last Taken Unknown] apixaban 5 mg tablet (Eliquis) 5 mg PO BID stop Xarelto, change to Eliquis #180 tabs 04/08/22 [Rx Last Taken Unknown] Allergy/AdvReac Type Severity Reaction Status Date / Time tree and shrub pollen Allergy Shortness Verified 04/08/22 16:33 of breath oxycodone AdvReac Hallucinati Verified 04/08/22 16:33 ons Family History Father CVA (cerebral vascular accident) Surgical History H/O foot surgery 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) History of removal of skin mole History of right hip replacement History of total hip arthroplasty Social History Smoking Status: Former smoker alcohol intake: current substance use type: does not use ROS ROS ED Constitutional Constitutional ED: Denies chills or fever(s) Eyes Eyes: Denies change in vision ENT ENT ED: Reports other Details: See history of present illness Cardiovascular Cardiovascular: Denies chest pain, palpitations or racing heartbeat Respiratory/Chest Respiratory/Chest: Denies cough Gastrointestinal Gastrointestinal: Denies nausea or vomiting Genitourinary Genitourinary ED: Denies hematuria Musculoskeletal Musculoskeletal: Denies myalgias Neurologic Neurologic: Denies weakness Endocrine Endocrinology: Denies polydipsia or polyuria Hematologic/Lymphatic Hematologic/Lymphatic: Reports easy bleeding and easy bruising Allergic/Immunologic Allergic/Immunologic ED: Denies urticaria EXAM Physical Exam Const Vital Signs: 04/08/22 16:34 04/08/22 19:53 04/08/22 21:47 Temperature 97.0 F L Temperature Source Temporal Pulse Rate 70 70 70 Respiratory Rate 18 15 15 Blood Pressure 161/76 H 170/71 H 165/71 H Blood Pressure Mean 104 104 102 Pulse Ox 98 96 97 Oxygen Delivery Method Room Air Room Air Room Air 04/08/22 23:00 Temperature Temperature Source Pulse Rate Respiratory Rate 16 Blood Pressure Blood Pressure Mean Pulse Ox Oxygen Delivery Method Room Air Positive well nourished and well developed General Appearance ED: well developed and NAD; Negative for pallor HEENT Reports moist mucous membranes HEENT Narrative: Patient has a small amount of blood in posterior pharynx. He has nasal clamp on at this time. No active bleeding seen. Before we take a look, we will place Muther mix in the nose. Eyes General Eye ED: Negative for scleral icterus Neck no lymphadenopathy Resp normal respiratory effort and clear to auscultation bilaterally Cardio regular rate, regular rhythm and no murmurs Rate: other Other Details: Heart is regular at this time. Does not sound like A. fib or flutter. Note he does have a pacemaker. GI normal to inspection, nondistended, normoactive bowel sounds Back/Spine no CVA tenderness Neuro Sensorium / Orientation: alert Psych mental status grossly normal Skin no rashes or lesions noted and no wounds General Skin Exam: Negative for pallor MDM MDM MDM Narrative Medical decision making narrative: Procedure: Management of epistaxis: Patient had a clip on his nose. This was controlling his bleeding. We then undid this clip and had him blow clots from the left nare. There is a little bit of bleeding from the left but none from the right. Right has a small cauterized area but is otherwise clean. Left is a larger cauterized area with some mild oozing. Marv mix was placed in both sides. It was then clamped further. We then rechecked him. We had him blow nose again. We put spray thrombin in both sides. He was watched. Initially he had complete stoppage of the bleeding. But then he started to have some oozing on the left again. I had already talked to him about packing. We then used a short inflatable hemostatic balloon. I put more spray thrombin in the left side first. He has been watched here. He has a very small drip of serosanguineous fluid that comes out the front. But no active bleeding. No blood from the back. He did bring up 1 clot from the back of his throat but he stated that it been there for a while and it feels better now. He is not having blood draining down his throat by symptoms or exam. Patient was walked in the department. There is been no bleeding. I had a long discussion with him and his . His hemoglobin is higher than his baseline. He does have a history of anemia. He is at high risk for bleeding for being on Xarelto. He plans to hold his Xarelto for day or 2. We did discuss that there is risk to this. His EKG does show background atrial flutter even though his rate is controlled and regular because of the pacer. He states he has stopped this before for surgery and is planning to stop it for the knee. It is reasonable to stop it for a day or 2 for the nose. We will have him hold in the morning and he will contact his auto painter, Dr. Dietrich about this in the morning. He will also call his ENT physician, Dr. Castro in the morning. He would prefer to go home now. He has a just a tiny amount of serosanguineous intermittent drainage but only when he puts a tissue up to his nose. There is no active bleeding including with a long period of observation and ambulation. Lab Data Attestation: I reviewed the patient's lab results. Labs: Laboratory Results - last 24 hr 04/08/22 04/08/22 04/08/22 18:40 18:40 18:40 WBC 8.8 RBC 2.46 L Hgb 10.1 L Hct 29.4 L MCV 119.5 H MCH 41.1 H MCHC 34.4 RDW Std Deviation 67.6 H RDW Coeff of Humza 15.4 H Plt Count 155 MPV 11.8 Immature Gran % (Auto) 2.200 H Neut % (Auto) 55.5 Lymph % (Auto) 17.7 L [place] % (Auto) 23.0 H Eos % (Auto) 0.6 Baso % (Auto) 1.0 Absolute Neuts (auto) 4.9 Absolute Lymphs (auto) 1.56 Nucleated RBC % 0 Differential Comment SEE COMMENT Platelet Estimate ADEQUATE RBC Morphology N CHROM Anisocytosis 2+ Macrocytosis 2+ PT 22.3 H INR 2.0 APTT 44.1 H Sodium 140 Potassium 3.9 Chloride 104 Carbon Dioxide 31.0 Anion Gap 5 BUN 22 H Creatinine 0.89 Estim Creat Clear Calc 60.68 Est GFR (MDRD) Af Amer 105 Est GFR (MDRD) Non-Af 86 BUN/Creatinine Ratio 24.7 H Glucose 116 H Calcium 9.2 EKG Initial EKG: Comments: EKG done for history of atrial fibrillation flutter. EKG read by me shows a regular rate that is paced at 70. However, there is background atrial flutter. Patient has widened QRS consistent with pacer. QTc is a bit long at 483. No sign of infarct or ischemia. Discharge Plan Triage Chief Complaint: Nosebleed ED Provider: Cliff Dean Dx/Rx/DC Orders Clinical Impression: Left-sided epistaxis, Coagulopathy Instructions: ED Epistaxis (Adult) Prescriptions: No Action hydrochlorothiazide 25 mg tablet 25 mg PO DAILY flaxseed 1,000 mg capsule PO calcium-vitamin D3-vitamin K 500-200-40 mg-unit-mcg tablet,chewable PO BID ferrous sulfate 325 mg (65 mg iron) tablet 325 mg PO Q OTHER DAY lisinopril 10 mg tablet 10 mg PO DAILY triamcinolone acetonide [Kenalog] 40 mg/mL suspension 60 mg intra-articular ONCE Qty: 1.5 0RF omega-3 fatty acids Capsule 1,000 mg PO DAILY temjvrovfmxv-hbs-eypsktm-FA 200-0.4 mg Tablet,Chewable 2 tab PO DAILY Glucosamine Chondroitin 550-30-1 mg Capsule 1 cap PO DAILY acetaminophen 500 mg Tablet 1,000 mg PO Q8 Qty: 90 0RF Eliquis 5 mg tablet 5 mg PO BID Qty: 180 3RF Primary Care Provider: Angel Luis Roger Referrals: Beto Bernstein MD [Med Staff - Active Staff] - 1 Day Angel Luis Roger MD [Primary Care Provider] - Disposition Disposition: Home, Self Care
[2022-04-08] MEDS: Mixture 30 ML Bottle TOPICAL (18:43)
[2022-04-08] MEDS: Thrombin 5,000 IU Kit (PSA) 5,000 IU Vial 5000 IU TOPICAL (18:43)
[2022-04-08 19:03] LABS: Anion Gap 5 (5-15); BUN 22 mg/dL (7-18); BUN/Creat Ratio 24.7 RATIO (10-20); Calcium,Total 9.2 mg/dL (8.5-10.1); Chloride 104 mmol/L (98-107); Creatinine, Serum 0.89 mg/dL (0.70-1.30); EST Glomerular Filtration Rate 86 mL/min (>60); Est Glom Filt Rate - Afr Amer 105 mL/min (>60); Estimated Creatinine Clearance 60.68 ml/min; Glucose 116 mg/dL (74-106); Potassium 3.9 mmol/L (3.5-5.1); Sodium Level 140 mmol/L (136-145)
[2022-04-08 19:11] LABS: Absolute Lymphocyte Count 1.56 X10^3/uL (0.83-4.51); Absolute Neutrophil Count 4.9 X10^3/uL (2.0-7.7); Basophil# 0.09 X10^3/uL; Eosinophil# 0.05 X10^3/uL; Eosinophils% 0.6 % (0-5); Hematocrit 29.4 % (40-54); Hemoglobin 10.1 g/dL (13.0-16.5); Lymphocyte # 1.56 X10^3/ul (0.83-4.51); Lymphocyte % 17.7 % (19-41); Mean Corp Hgb Conc 34.4 g/dL (32-36); Mean Corpuscular Hgb 41.1 pg (27.0-32.0); Mean Corpuscular Volume 119.5 fL (80-94); Mean Platelet Vol. 11.8 fl (6.2-12.0); Monocyte# 2.03 X10^3/uL; NRBC Flagged by Analyzer 0 % (0-5); Neutrophil % 55.5 % (47-70); POSITIVE DIFFERENTIAL YES; POSITIVE MORPHOLOGY YES; Platelet Count 155 K/mm3 (150-450); RBC Distribution Width CV 15.4 % (11.6-14.6); RBC Distribution Width SD 67.6 fl (35.1-43.9); Red Blood Count 2.46 M/mm3 (4.6-6.2); White Blood Count 8.8 K/mm3 (4.4-11.0)
[2022-04-08 19:15] LABS: Differential Indicated SCAN CRITERIA MET
[2022-04-08 19:17] LABS: Prothrombin Time (Protime)PT. 22.3 SECONDS (11.7-14.9)
[2022-04-08 19:18] LABS: Partial Thromboplast Time 44.1 Seconds (24.1-36.2)
[2022-04-08 19:38] LABS: Platelet Estimate ADEQUATE (ADEQ)
[2022-04-08 19:39] LABS: Anisocytosis 2+; Macrocytosis 2+; Red Cell Morphology N CHROM NORMAL (NORM C&C)
[2022-04-08 19:53] VITALS: BP 170/71; PULSE 70; RESP 15; O2SAT 96
[2022-04-08 21:47] VITALS: BP 165/71; PULSE 70; RESP 15; O2SAT 97
[2022-04-08 23:00] VITALS: RESP 16
[2022-04-09 00:04] VITALS: BP 165/71; PULSE 70; RESP 15; O2SAT 97
== END 2022-04-09 00:05 | disposition home or self-care (01) ==
PROVIDERS: Emergency Provider Emergency Medicine; PCP Internal Medicine; Visit Provider Emergency Medicine
DX: R04.0 Epistaxis (principal); D68.9 Coagulation defect, unspecified; Z87.891 Personal history of nicotine dependence; I10 Essential (primary) hypertension
CPT/HCPCS: 30901; 80048; 85025; 85610; 85730; 93005; 99282; A4216

== ENCOUNTER 2022-04-11 18:31 | Emergency (ER) | payer MEDICARE, OTHER, SELFPAY ==
[2022-04-11 18:32] VITALS: BP 147/62; PULSE 70; RESP 14; TEMP 36.7; O2SAT 97; BMI 30.9
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
--- NOTE | 2022-04-11 20:29 | EDS_ITS ---
HPI History of Present Illness Chief Complaint: Nosebleed Detail of Chief Complaint: Nasal packing removal Informant: patient Narrative Narrative: Patient presents to the emergency department with concern about his nasal packing coming out. Patient states that he was seen in the emergency department 3 days ago and had a nosebleed and the left side of his nose packed. Patient states that he had been doing well until today started feeling like the nasal packing was coming out. He has an appointment to see his ear nose and throat physician in 3 days. Patient otherwise has no complaints. Patient had been on Xarelto but that was discontinued. Patient had been on Xarelto for history of A. fib. [facility] Medical History (Updated 04/11/22 @ 20:[address] Kenn Martínez, DO) Alcohol use Ambulates with cane Anemia Back pain Bilateral lower extremity edema BPH (benign prostatic hyperplasia) Cancer Complete heart block Degenerative joint disease of right hip Diverticulosis Encephalopathy Essential (primary) hypertension Former smoker H/O cataract History of ulceration Nasal bleeding NSVT (nonsustained ventricular tachycardia) Obesity Paroxysmal atrial fibrillation Paroxysmal atrial flutter Wears glasses Home Medications hydrochlorothiazide 25 mg tablet 25 mg PO DAILY 08/08/19 [History Last Taken Un known] glucosamine sulf dipot chlr,msm,chond 550 mg-C 30 mg-alok 1 mg capsule (Glucosamine Chondroitin) 1 cap PO DAILY SUPPLEMENT 02/06/21 [History Last Taken Unknown] rhdmcfgqgbbc-ext-llqehdy-FA 200 mg-0.4 mg chewable tablet 2 tab PO DAILY SUPPLEMENT 02/06/21 [History Last Taken Unknown] omega-3 fatty acids 1,000 mg PO DAILY SUPPLEMENT 02/06/21 [History Last Taken Unknown] acetaminophen 500 mg tablet 1,000 mg PO Q8 #90 tabs 02/07/21 [Rx Last Taken Unknown] calcium-vitamin D3-vitamin K 500 mg-200 unit-40 mcg chewable tablet tab PO BID 06/27/21 [History Last Taken Unknown] ferrous sulfate 325 mg (65 mg iron) tablet 325 mg PO Q OTHER DAY 06/27/21 [History Last Taken Unknown] flaxseed 1,000 mg capsule mg PO 06/27/21 [History Last Taken Unknown] lisinopril 10 mg tablet 10 mg PO DAILY 11/12/21 [History Last Taken Unknown] Kenalog 40 mg/mL suspension for injection (triamcinolone acetonide) 60 mg (1.5 mL) intra-articular ONCE #1.5 mL 02/05/22 [Clinic Last Taken Unknown] apixaban 5 mg tablet (Eliquis) 5 mg PO BID stop Xarelto, change to Eliquis #180 tabs 04/08/22 [Rx Last Taken Unknown] Allergy/AdvReac Type Severity Reaction Status Date / Time tree and shrub pollen Allergy Shortness Verified 04/11/22 18:32 of breath oxycodone AdvReac Hallucinati Verified 04/11/22 18:32 ons Family History Father CVA (cerebral vascular accident) Surgical History H/O foot surgery 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) History of removal of skin mole History of right hip replacement History of total hip arthroplasty Social History Smoking Status: Former smoker alcohol intake: current substance use type: does not use ROS ROS ED Review of Systems ROS Unobtainable: other Constitutional Constitutional ED: Reports lethargy; Denies chills, fever(s), sweats or weight loss Eyes Eyes: Denies blurry vision, change in vision or diplopia ENT ENT ED: Reports other Details: Left nasal packing slipping out of nose ; Denies rhinorrhea or sore throat Cardiovascular Cardiovascular: Denies chest pain, orthopnea or racing heartbeat Respiratory/Chest Respiratory/Chest: Denies cough, dyspnea, dyspnea on exertion, orthopnea or sputum Gastrointestinal Gastrointestinal: Denies abdominal pain, diarrhea, nausea or vomiting Genitourinary Genitourinary ED: Denies dysuria, hematuria or urinary frequency Musculoskeletal Musculoskeletal: Denies arthralgias, back pain, myalgias or neck pain Integumentary Denies abscess, Abrasions or rash Neurologic Neurologic: Denies headache(s) or weakness Psychiatric Psychiatric: Denies anxiety, depression or suicidal thoughts Endocrine Endocrinology: Denies polydipsia, polyphagia or polyuria Hematologic/Lymphatic Hematologic/Lymphatic: Denies easy bleeding, easy bruising or lymphadenopathy Allergic/Immunologic Allergic/Immunologic ED: Denies mouth swelling, tongue swelling or urticaria EXAM Physical Exam Const Vital Signs: 04/11/22 18:32 Temperature 98.1 F Temperature Source Temporal Pulse Rate 70 Respiratory Rate 14 Blood Pressure 147/62 H Blood Pressure Mean 90 Pulse Ox 97 Oxygen Delivery Method Room Air Positive well nourished and well developed General Appearance ED: well developed and NAD HEENT Reports TM's clear and moist mucous membranes HEENT Narrative: Prior to my evaluation of the patient his packing came out. On evaluation of his nasal vault there is no active bleeding. There is no blood on the oropharynx. normocephalic and atraumatic; Negative for trauma or tenderness Tympanic Membrane ED: Yes TM's clear Eyes PERRL and EOMs intact bilaterally General Eye ED: Negative for pale conjunctiva or scleral icterus Neck no lymphadenopathy, supple and no JVD General: Negative for tenderness Chest Wall inspection of chest normal and palpation of chest normal Chest: Negative for tenderness Resp normal respiratory effort and clear to auscultation bilaterally Effort and Inspection: Negative for respiratory distress or pain with movement Auscultation: Negative for rhonchi, wheezes or diminished lung sounds Cardio regular rate, regular rhythm, S1 normal heart sound, S2 normal heart sound and no murmurs Peripheral Pulses: pulses 2+ throughout GI normal to inspection, nondistended, normoactive bowel sounds, soft to palpation, non-tender, non-distended and no masses Back/Spine no CVA tenderness and no thoracic nor lumbar tenderness Extremity normal to inspection General Extremety ED: Negative for edema General Extremity: Negative for edema Neuro oriented x3, CN's II-XII intact bilaterally, no sensory deficits noted and gait normal Sensorium / Orientation: awake, alert, oriented to person, oriented to place and oriented to time Motor Exam: strength 5/5 throughout and strength abnormal Psych mental status grossly normal Skin no rashes or lesions noted and no wounds MDM MDM MDM Narrative Medical decision making narrative: Patient's nasal packing came out spontaneously. At this time he has no further bleeding. Patient will be discharged to home and advised to keep his appointment with his ear nose and throat physician in 3 days. Patient advised to hold constant pressure for 20 minutes if the bleeding resumes. Patient advised to return to the emergency department if the bleeding persists or condition should worsen anyway. Discharge Plan Triage Chief Complaint: Nosebleed ED Provider: Kenn Martínez Dx/Rx/DC Orders Clinical Impression: Encounter for removal of nasal packing, History of epistaxis Instructions: Nosebleed Prescriptions: No Action hydrochlorothiazide 25 mg tablet 25 mg PO DAILY flaxseed 1,000 mg capsule PO calcium-vitamin D3-vitamin K 500-200-40 mg-unit-mcg tablet,chewable PO BID ferrous sulfate 325 mg (65 mg iron) tablet 325 mg PO Q OTHER DAY lisinopril 10 mg tablet 10 mg PO DAILY triamcinolone acetonide [Kenalog] 40 mg/mL suspension 60 mg intra-articular ONCE Qty: 1.5 0RF omega-3 fatty acids Capsule 1,000 mg PO DAILY arwsyqbcgctq-bqc-buaokvs-FA 200-0.4 mg Tablet,Chewable 2 tab PO DAILY Glucosamine Chondroitin 550-30-1 mg Capsule 1 cap PO DAILY acetaminophen 500 mg Tablet 1,000 mg PO Q8 Qty: 90 0RF Eliquis 5 mg tablet 5 mg PO BID Qty: 180 3RF Primary Care Provider: Angel Luis Roger Referrals: Beto Bernstein MD [Med Staff - Active Staff] - 3-5 Days Angel Luis Roger MD [Primary Care Provider] - Disposition Disposition: Home, Self Care
== END 2022-04-11 20:35 | disposition home or self-care (01) ==
PROVIDERS: Emergency Provider Emergency Medicine; PCP Internal Medicine; Visit Provider Emergency Medicine
DX: R04.0 Epistaxis (principal); I48.91 Unspecified atrial fibrillation; T88.8XXA Other specified complications of surgical and medical care, not elsewhere classified, initial encounter; I10 Essential (primary) hypertension; Z79.01 Long term (current) use of anticoagulants; Z87.891 Personal history of nicotine dependence; X58.XXXA Exposure to other specified factors, initial encounter
CPT/HCPCS: 99282

== ENCOUNTER 2022-05-20 09:14 | Inpatient (IN) | payer MEDICARE, OTHER, SELFPAY ==
[2022-05-12 15:28] LABS: Absolute Lymphocyte Count 1.33 X10^3/uL (0.83-4.51); Absolute Neutrophil Count 3.5 X10^3/uL (2.0-7.7); Basophil% 1.3 % (0-1); Eosinophil# 0.12 X10^3/uL; Eosinophils% 1.6 % (0-5); Hematocrit 27.9 % (40-54); Lymphocyte # 1.33 X10^3/ul (0.83-4.51); Lymphocyte % 17.9 % (19-41); Mean Corp Hgb Conc 32.3 g/dL (32-36); Mean Corpuscular Hgb 40.5 pg (27.0-32.0); Mean Corpuscular Volume 125.7 fL (80-94); Mean Platelet Vol. 11.9 fl (6.2-12.0); Monocyte# 2.16 X10^3/uL; Monocyte% 29.1 % (0-10); NRBC Flagged by Analyzer 0 % (0-5); Neutrophil # 3.47 X10^3/uL (2.7-7.7); POSITIVE DIFFERENTIAL YES; POSITIVE MORPHOLOGY YES; Platelet Count 159 K/mm3 (150-450); RBC Distribution Width SD 74.2 fl (35.1-43.9); Red Blood Count 2.22 M/mm3 (4.6-6.2); White Blood Count 7.4 K/mm3 (4.4-11.0)
[2022-05-12 15:46] LABS: International Normalized Ratio 1.2; Partial Thromboplast Time 33.3 Seconds (24.1-36.2)
[2022-05-12 15:52] LABS: Magnesium 2.2 mg/dL (1.6-2.6)
[2022-05-12 15:56] LABS: Differential Indicated SCAN CRITERIA MET
[2022-05-12 16:25] LABS: Platelet Estimate ADEQUATE (ADEQ); Red Cell Morphology N CHROM NORMAL (NORM C&C)
[2022-05-12 16:28] LABS: Hemoglobin A1c 5.6 % (3.8-5.6)
[2022-05-12 16:35] LABS: Anisocytosis 2+; Macrocytosis 2+
[2022-05-14 09:31] LABS: Fructosamine 246 umol/L (0-285)
--- NOTE | 2022-05-14 15:21 | CASEMGMT ---
Addendum entered by Monse Patel 05/19/22 15:21: Received confirmation that TCU has beds, updated Leigh at 's office. Addendum entered by Monse Patel 05/19/22 15:18: TC from Leigh at 's office, states pt called in and stated he was called today and that there may not be a bed available in TCU. She states she wants to confirm this and see other options. States pt would chose [facility] as second choice. SW messaged TCU admissions, awaiting answer as TCU notified last week of pt wishes from pre surgery assessment. Original Note: ELAINE PONCE Assessment: TC to pt for initial transition planning/care coordination assessment. RN ROSARIO introduced self and role at [facility], pt voices understanding and consents to assessment. Care providers, pharmacy, and demographics verified/updated. Admitting Dx: L Total Knee Robot PCP:Kana Specialists:queenie Hernandez; Karlo, cardio Preferred [facility] Pres[facility] Benefit: yes LNOK: Cindi Matthews, Living Arrangements: Pt lives with in a single story house with 2 steps to enter. Pt reports he is I in ADL's and denies concerns at home. Transportation: Pt drives self short distances. States his can transport him post surgery. DME/HHC/SNF: Pt has a FWW that he got yesterday, 2 canes and grab bars in the shower. Pt denies hx of HHC or SNF stays. Pt states he is going to the TCU at [facility] post surgery. States this was discussed with ortho. Discussed with patient that therapy will work with him post surgery and a plan will be made. Updated TARA that pt is requesting TCU. CM to follow. Advised pt to ask CM if any further question/concerns/needs arise, voices understanding. Pt Goal: [facility] TCU Plan: TBD pending surgery and therapy evals.
[2022-05-20] VITALS (17 sets, daily range): BP systolic 100–139; BP diastolic 48–94; PULSE 70–76; RESP 14–18; TEMP 36.1–37.1; O2SAT 92–100; BMI 32.8
[2022-05-20] MEDS: Magnesium 1 GM over 15 mins IV (10:28)
[2022-05-20] MEDS: Lactated Ringers 1,000 ML 15 ML IV (10:30)
[2022-05-20] MEDS: Scopolamine 1mg/72hr Patch 1 PATCH TD (10:56)
[2022-05-20] MEDS: Gabapentin 600 MG Tablet PO (10:57)
[2022-05-20] MEDS: Acetaminophen 500 MG Tablet 1000 MG PO (10:57)
--- NOTE | 2022-05-20 10:59 | PCM.HP.BLA ---
History and Physical Date of Admission: 05/20/22 [facility] [id number] [place] [address] OFFICE VISIT Date of Service:? 05/09/22 MR#: [id number] Acct: [id number] Name:MADINA WERNER Rep #: [id number] : 1935 ? ? Provider: ?CUBA Chatterjee Age/Sex:? 87/M ? ? Location: [facility] [place].LISA Status: Signed Intake Vital Signs ? 03/17/2211:01 04/11/2218:32 Height 5 ft 8 in 5 ft 9 in Weight: ? 209 lb 10.554 oz BMI ? 30.9 BP ? 147/62 H Respiration ? 14 Pulse ? 70 Temp ? 98.1 F Temp Source ? Temporal Pulse Oximetry (%) ? 97 Intake Visit Reasons:?left knee Chief Complaint: Right Total Hip Allergies tree and shrub pollen Allergy (Verified 05/09/22 13:16) Shortness of breathoxycodone Adverse Reaction (Verified 05/09/22 13:16) Hallucinations Medications hydrochlorothiazide 25 mg tablet 25 mg PO DAILY BP 08/08/19 [History Confirmed 05/09/22] glucosamine sulf dipot chlr,msm,chond 550 mg-C 30 mg-alok 1 mg capsule (Glucosamine Chondroitin) 1 cap PO DAILY SUPPLEMENT 02/06/21 [History Confirmed 05/09/22] nlyrmwckzvbn-tyc-mydivjv-FA 200 mg-0.4 mg chewable tablet 2 tab PO DAILY SUPPLEMENT 02/06/21 [History Confirmed 05/09/22] omega-3 fatty acids 1,000 mg PO DAILY SUPPLEMENT 02/06/21 [History Confirmed 05/09/22] calcium-vitamin D3-vitamin K 500 mg-200 unit-40 mcg chewable tablet 1 tab PO BID SUPPLEMENT 06/27/21 [History Confirmed 05/09/22] ferrous sulfate 325 mg (65 mg iron) tablet 325 mg PO DAILY SUPPLEMENT 06/27/21 [History Confirmed 05/09/22] flaxseed 1,000 mg capsule 1,000 mg PO DAILY SUPPLEMENT 06/27/21 [History Confirmed 05/09/22] lisinopril 10 mg tablet 10 mg PO DAILY BP 11/12/21 [History Confirmed 05/09/22] acetaminophen 500 mg tablet 1,000 mg PO Q8 PAIN 05/07/22 [History Confirmed 05/09/22] apixaban 5 mg tablet (Eliquis) 5 mg PO BID BLOOD THINNER 05/07/22 [History Confirmed 05/09/22] docusate sodium 100 mg capsule (Stool Softener) 100 mg PO DAILY PRN Constipation 05/07/22 [History Confirmed 05/09/22] PFSH Medical History? Alcohol use Ambulates with cane Anemia Atrial fibrillation Back pain Bilateral lower extremity edema BPH (benign prostatic hyperplasia) Cancer Cardiology follow-up encounter Complete heart block Degenerative joint disease of right hip Diverticulosis Encephalopathy Essential (primary) hypertension Former smoker H/O cataract History of Mohs micrographic surgery for skin cancer History of ulceration Hypertension Nasal bleeding NSVT (nonsustained ventricular tachycardia) Obesity Pacemaker Paroxysmal atrial fibrillation Paroxysmal atrial flutter Syncope Wears glasses Surgical History? 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 Father?? CVA (cerebral vascular accident) Social History? Smoking Status:? Former smoker alcohol intake:? current substance use type:? does not use HPI left knee Details: Parts of this documentation were recorded by a scribe, this documentation accurately reflects the service provided and the decisions made by me, CUBA Rodriguez 05/09/22 [id number]. MADINA CHOWDHURY is a 87 year old M here today for left knee Iovera. Ortho Exam General General: Yes no acute distress Neurologic: Yes alert and Yes oriented x3 Psychologic: Yes reasonable and appropriate Left Knee Skin/Wound: Yes CDI, No ecchymosis, No erythema and No swelling Homans Sign: No Knee ROM: No ROM-Extension -20 to 0 (approx 15 degree lag) and No ROM-Flexion 0-140 (aprox 100) Examination: Yes med jt line tenderness and Yes Lat jt line tenderness Patella Grind: Yes KNEE: Patient has no acute or gross abnormalities on inspection of the left knee.? He does have some tender skin with some scattered petechial lesion and small bruised noted.? Patient is neurovascularly intact throughout the lower extremity with normal sensation to light touch and good gross motor function of the access foot/toes. Office Procedures Iovera Procedure Details:: Preoperative diagnosis :left knee pain Postoperative diagnosis: Same Procedure: Cryotherapy with Iovera device to anterior femoral cutaneous nerve and 2 branches of the infrapatellar saphenous nerve III nerves in total Description of procedure: Patient was brought back to the procedure room the operative extremity was identified by both patient and physician.? The PIP flexion crease was measured to the midpoint of the patella and this distance was divided in 3 resulting in 12.5 cm location proximal to the midpoint of the patella.? This line was extended medial and lateral to the extent of the edges of the patella.? This was our treatment line for the anterior femoral cutaneous nerve.? A second treatment line was made 5 cm medial to the inferior pole of the patella and 5 cm distally.? The leg was prepped with alcohol and Betadine.? Lidocaine with epi was used along the treatment lines.? Using the Iovera device treatment lines were treated with 1 minute cycles.? Reproduction of paresthesias was monitored in the area of nerve distribution.? Once all 3 nerves were treated across the 2 treatment lines patient was cleaned and a light dressing with 4 x 4 and Rodger wrap was applied.? Patient tolerated the procedure without complication. Coding Level of Care Code Attention Pcat Instructor Diagnoses Osteoarthritis of left knee? M17.12 Comment CPT?51659 - Assessment and Plan Assessment and Plan (1) Osteoarthritis of left knee: ?Status:?Acute ? ? ? Orders: Orders Iovera 05/09/22 M25.569 - Pain in unspecified knee ? Plan Patient presented the office today for left total knee preoperative Iovera treatment of the left lower extremity.? We did discuss today's procedure and all of his questions and his 's questions were answered today.? Consent was signed in office today. Iovera treatment was then performed and is described in the procedure notes.? Entire leg was initially cleansed with alcohol soaked gauze.? Patellar landmarks were then identified as well as the inguinal crease identified.? Her treatment lines were then able to be found.? These areas were then cleansed thoroughly with Betadine and alcohol swabs prior to being locally anesthetized.? Once anesthetized the areas were again cleansed with Betadine and alcohol swabs and procedure was performed under normal sterile fashion.? Patient tolerated this procedure with minimal discomfort.? No complications were observed.? Patient should leave on the compression wrap for 24 hours.? He can shower in 24 hours.? Monitor notify of any erythema, warmth, increased pain, swelling, or any new signs or symptoms.? Patient does have a history of bruising and therefore I do anticipate him having some bruising around this area.? We also discussed that some scabbing also can be common.? Notify the office with any questions or concerns. This note was generated with Quoterol[employer] dictation software. It may contain incorrect words, spelling, and punctuation that were not noted in checking the note before signing. 05/12/22 1309 <Electronically signed by Michael BRINK> Date Michael ROCHE have examined the patient and the H&P has been reviewed. There are no clinical changes since date of exam.
[2022-05-20 11:20] LABS: Bedside Glucose 133 mg/dL (74-106)
--- NOTE | 2022-05-20 12:00 | KNEE_PTH ---
PATIENT: MADINA CHOWDHURY LOC: MS3 U#:[id number] AGE/SX: 87/M ROOM: [facility] RE05/20/[address]: Dr. Venkat Hernandez DO : 1935 BED: 1 DIS: 05/22/2022 SPEC #: [id number] RECD: 05/20/22 14:56 STATUS: ANISHA NELSON #: [id number] [place]: 05/20/22 12:[address]: Venkat Hernandez DEPT: SURGICAL PATHOLOGY RECD BY: Jae Verdugo ENTERED: 05/21/22 10:10 SP TYPE: TOTAL KNEE OTHR DR: Dr. Angel Luis Roger MD Tissues: Knee, NOS Procedures: Decalcification bone/plaque Surgery Specimen Level IV HEADER OPERATION: ERAS, total knee replacement robotic arm assist PRE-OP DIAGNOSIS: Osteoarthritis of left knee TISSUE SUBMITTED: Bone and soft tissue left knee MICROSCOPIC DIAGNOSIS Bone and soft tissue, left knee, total knee replacement/resection: Pieces of bone with degenerative osteoarthritic changes. Fibroadipose tissue, fibroconnective tissue and reactive synovial tissue. SONU:karma 05/26/2022 MICROSCOPIC DESCRIPTION Slides are reviewed. GROSS DESCRIPTION Received is one container designated bone and soft tissue left knee. The specimen consists of multiple fragments of puentes-yellow bone measuring in aggregate 16 x 13 x 2 cm. Also in the specimen container are multiple fragments of yellow-white soft tissue measuring in aggregate 3 x 2 x 1 cm. A number of bony fragments contain articular surfaces consistent with tibial plateau and femoral condyle and displaying prominent osteophyte formation, eburnation, and bone erosion. Production Welder sections are submitted in two cassettes as follows: 1 - soft tissue, 2 - bone after decalcification. / AM:karma 05/21/2022 TC:5 CPT: 83385, 01719
[2022-05-20] MEDS: Cefazolin 2 GM in 0.9% Normal Saline 100 ML IV (12:35)
[2022-05-20] MEDS: dexAMETHasone 10 MG/ML Vial IV (12:45)
[2022-05-20] MEDS: TXA 1000mg in NS100 100ml (IVPB at Incision) 660 MG IV (12:45)
[2022-05-20] MEDS: TXA 1000mg in NS100 100ml (IVPB at Closure) 660 MG IV (13:16)
[2022-05-20] MEDS: Epinephrine (1 mg/ml) 1 MG/ML VIAL (13:58)
[2022-05-20] MEDS: dexAMETHasone 4 MG/ML Vial (13:58)
[2022-05-20] MEDS: 0.9% Normal Saline (Pres. free 10 ML Vial (13:58)
--- NOTE | 2022-05-20 14:46 | OP.PCM_ITS ---
Operative Report Date of Procedure: 05/20/22 Preoperative diagnosis: Left knee DJD Postoperative diagnosis: Same Procedure: Left total knee arthroplasty CT guided Robotic Assisted Implant: [place] triathlon cemented, femoral component size5, tibial baseplate size 6, asymmetric patella size 35, polyethylene X3 size 9 CS Anesthesia: Spinal with adductor canal block Tourniquet time: Minutes at 300 mmHg Complications: None Condition: Stable to PACU Estimated blood loss: 200 cc Indication for procedure: This is a 87-year-old male with long standing degenerative joint disease of the knee who has failed conservative treatment and wished to proceed with elective total knee arthroplasty. Risk benefits and alternatives were reviewed including; risk of bleeding, infection, nerve artery and tissue damage, continued pain, postoperative stiffness, venous thromboembolism, need for postoperative rehabilitation, mechanical feel to the knee, and expected postoperative course. The pre- operative CT and templating was performed with component sizing. Procedure: The patient was met in the preoperative holding area. The operative extremity was identified by both patient and physician and was marked. Patient was met by anesthesia. An adductor canal block was placed by anesthesia postoperatively the patient was brought back to the operating room on a wheeled cart and transferred to the operating table in the supine position. Anesthesia was started. A well-padded tourniquet was placed on the operative extremity. The patient was prepped and draped in the usual sterile fashion. A timeout was called to ensure the proper patient procedure and extremity were being contemplated. An esmarch was used to exsanguinate the extremity. The tourniquet was inflated. A 10 blade scalpel was used to make a midline incision down through the skin and subcutaneous tissue. Skin retractors placed. Bovie and Aquamantis were used to perform meticulous hemostasis. full-thickness flaps were elevated medial and lateral along the joint capsule. A deep blade scalpel was used to perform a medial parapatellar arthrotomy. The knee was brought to full extension. A bovie was used to release the soft tissues off the most proximal aspect of the medial tibial plateau, a three-quarter inch curved osteotome was also used in this process. The infrapatellar fat pad was excised. The suprapatellar fat pad was excised partially anteriorolateraly and portion the anterioromedial pad was elevated from the femur. At this point our intra- articular femoral array was placed at a 45 degree angle proximal and posterior to the medial epicondyle. femoral checkpoint was placed at this time. Our tibial array was placed greater than 1 hands breath below the incision at a 20 degree angle stab incisions were made with a 15 blade scalpel and pins were placed and attached to the tibial array , tibial checkpoint was placed in the proximal tibial metaphysis. Tourniquet was let down. At this point registration arndt were taken throughout the knee . Once the knee was registered we then tensioned the medial and lateral ligaments in extension and 90 degrees of flexion. We then used these numbers to adjust our components within parameters to balance the knee in both flexion and extension once this was done on our monitor we then proceeded with using the robotic arm to make our tibial plateau cut, anterior and posterior chamfer and distal femur cuts. we removed the cut fragments with the use of a bovie and Janessa, we did use a la kenneth roll coating machine operator to insure we visualized and removed all posterior osteophytes and at this time also used the Aquamantis on the posterior joint capsule. we then trialed and achieved the desired plan with a well-balanced knee. we used the green probe to chayito the corresponding tibial rotation based on our CT template. Lug holes were drilled in the femur the tibia preparation was completed with the appropriate sized base plate pinned based on previous rotation chayito. An appropriate sized fin punch was used on the tibia and the patella was prepared by first using a caliper to ensure sufficient bone stock and a patellar reamer to remove the desired amount of bone. lug holes drilled for an asymmetric poly. We then brought the knee through range of motion with excellent patellar tracking. We thoroughly irrigated the knee. Trial components were removed a posterior capsular injection was preformed with our standard cocktail. In addition the aqua Mantis was also used to aid in hemostasis. Betadine rinse was allowed to sit and washed out completely. Components were cemented into place excess cement was removed with a [place] elevator. Aricept rinse was then used followed by several more liters of irrigation after it was allowed to sit. The joint capsule was closed with #1 Ethibond [id number] followed by Vicryl in the subcutaneous tissues with sherman in the skin. Arrays and checkpoints were removed prior to closure all counts were correct stab incisions were closed with a staple standard dressing in the form of Mepilex AG for the main incision and a small Mepilex over the pin holes. Thigh-high AYDEE hose applied over top of dressing. Patient tolerated the procedure well and was directed to PACU in stable condition . There were no intraoperative complications.
--- NOTE | 2022-05-20 15:20 | RAD_ITS ---
STUDY: X-RAY - LEFT KNEE REASON FOR EXAM: Male, 87 years old. Post op -- AP and Lateral xray of operative knee in PACU TECHNIQUE: 2 view(s) of the knee. COMPARISON: Comparison is made with prior examination of 12/28/2020. FINDINGS: Normal visualized distal femur. Normal visualized proximal tibia and fibula. Normal proximal tibiofibular articulation. The patient is status post total knee replacement. There is good alignment. Postoperative soft tissue changes RAD/Knee 1 or 2 Views IMPRESSION: Status post total knee replacement. There is good alignment. Postoperative soft tissue changes. Electronically Signed: Tristin De La Torre MD at 15:39 EST ,
[2022-05-20] MEDS: Lactated Ringers 1,000 ML 125 ML IV (17:10)
[2022-05-20] MEDS: Cefazolin 1 GM/50 ML BAG IV (17:21)
[2022-05-21] VITALS (10 sets, daily range): BP systolic 114–137; BP diastolic 56–70; PULSE 68–91; RESP 16–18; TEMP 36.4–37; O2SAT 94–96
[2022-05-21] MEDS: Lactated Ringers 1,000 ML 125 ML IV ×2 (02:40→09:56)
[2022-05-21] MEDS: Cefazolin 1 GM/50 ML BAG IV ×2 (03:08→09:54)
[2022-05-21] MEDS: Multivitamins,Therapeutic Tablet 1 TABLET PO (07:43)
[2022-05-21 07:50] LABS: Hematocrit 23.9 % (40-54); Hemoglobin 7.7 g/dL (13.0-16.5); Mean Corp Hgb Conc 32.2 g/dL (32-36); Mean Corpuscular Hgb 40.7 pg (27.0-32.0); Mean Corpuscular Volume 126.5 fL (80-94); Mean Platelet Vol. 12.1 fl (6.2-12.0); POSITIVE MORPHOLOGY YES; Platelet Count 149 K/mm3 (150-450); RBC Distribution Width CV 15.8 % (11.6-14.6); RBC Distribution Width SD 73.5 fl (35.1-43.9); Red Blood Count 1.89 M/mm3 (4.6-6.2); White Blood Count 10.2 K/mm3 (4.4-11.0)
--- NOTE | 2022-05-21 07:52 | PCM.PN.ORT ---
Subjective Subjective Seen and examined. Pain controlled. He is alert and oriented x3 however he seems loopy and is rapidly talking. Denies fevers chills nausea vomiting shortness of breath or chest pain Objective Data Objective Data Vital Signs: Vital Signs Temp Pulse Resp BP Pulse Ox O2 Del Method O2 Flow Rate 98.2 F 69 18 135/62 H 94 Room Air 4 05/21/22 07:42 05/21/22 07:42 05/21/22 07:42 05/21/22 07:42 05/21/22 07:42 05/21/22 07:42 05/21/22 06:02 Oxygen Flow Rate (L/min) 4 Oxygen Delivery Method Room Air Weight: 215 lb 13.321 oz Body Mass Index (BMI) 32.8 Intake & Output: Intake and Output for Last 24 Hours 05/19/22 05/20/22 05/21/22 23:59 23:59 23:59 Intake Total 1482 / 1482 1050 / 1050 Output Total 850 / 850 Balance 1482 / 1482 200 / 200 Lab / Micro Data Result Diagrams: 05/12/22 14:42 05/21/22 06:35 Labs: Laboratory Results - last 24 hr 05/20/22 10:14: POC Glucose 133 H Micro: Microbiology 05/12/22 14:42 Swab (Method) Nasal Screen MRSA/MSSA - Final Radiography Diagnostic Testing: Radiology Impression Knee X-Ray 05/20/22 15:20 IMPRESSION: Status post total knee replacement. There is good alignment. Postoperative soft tissue changes. Electronically Signed: Tristin De La Torre MD at 15:39 EST , Physical Exam Const alert, oriented x3 and no apparent distress Extremity Extremity Narrative: Left knee dressing clean dry and intact compartment soft neurovascular intact EHL tibialis anterior gastrocsoleus intact sensation light touch and palpable pedal pulses Assessment & Plan Assessment/Plan (1) S/P total knee arthroplasty: PLAN: Postop day #1 left total knee arthroplasty A.m. labs are pending, history of low blood count. Denies chest pain shortness of breath dizziness however seems loopy He is on hydrocodone with Tylenol for pain control Plan is for discharge to TCU if medically stable tomorrow. Eliquis 5 mg twice daily resumed
[2022-05-21 08:17] LABS: Anion Gap 5 (5-15); BUN 22 mg/dL (7-18); BUN/Creat Ratio 18.2 RATIO (10-20); Calcium,Total 8.2 mg/dL (8.5-10.1); Chloride 107 mmol/L (98-107); Creatinine, Serum 1.21 mg/dL (0.70-1.30); EST Glomerular Filtration Rate 61 mL/min (>60); Est Glom Filt Rate - Afr Amer 73 mL/min (>60); Estimated Creatinine Clearance 43.18 ml/min; Glucose 131 mg/dL (74-106); Potassium 4.6 mmol/L (3.5-5.1); Sodium Level 139 mmol/L (136-145)
[2022-05-21 08:26] LABS: Scan Indicated on CBC? Y/N YES- FLAGS NOTED
[2022-05-21 09:47] LABS: Differential Comment SCANNED
[2022-05-21] MEDS: Lisinopril 10 MG Tablet PO (09:54)
[2022-05-21] MEDS: hydroCHLOROthiazide 25 MG Tablet PO (09:54)
[2022-05-21] MEDS: Calcium (Elemental) 500 MG Tablet PO ×2 (09:54→22:06)
[2022-05-21] MEDS: APIXABAN 5 MG TABLET PO ×2 (09:54→22:06)
[2022-05-21] MEDS: Senna/Docusate Sodium 1 Tablet 2 TABLET PO ×2 (09:55→22:06)
[2022-05-21] MEDS: Lactated Ringers 1,000 ML 15 ML IV (09:55)
--- NOTE | 2022-05-21 10:49 | CASEMGMT ---
Discharge Welding Machine Assembler This medical underwriter called Paulina in TCU. Paulina has a bed for the patient and she will get everything ready. This medical underwriter let Paulina know patient will probably be ready for d/c tomorrow. Brandie LEZAMA Hog Room Supervisor
--- NOTE | 2022-05-21 13:28 | CASEMGMT ---
Social Work? ? SW in to pt room to verify advance directives. Pt confirmed has AD and named Cindi Matthews,?, as agent. SW made pt aware documents are not on file and if pt would like to bring these documents in the documents can be dropped off at the Medical Records department. Pt voiced understanding.?? ? ANDREW Tse?
[2022-05-21] MEDS: Acetaminophen 500 MG Tablet 1000 MG PO ×2 (13:59→22:06)
--- NOTE | 2022-05-21 15:40 | CASEMGMT ---
Social work SW in to meet with pt and pt , Cindi. Plan has been set up Dr. Navarro that pt will go to TCU following acute D/C. SW confirmed with pt that this is choice. Pt and family declined SNF list and stated wants to stay at [facility] and go to TCU for rehab. PLAN: TCU, when medically ready ANDREW Tse
[2022-05-22] VITALS: BP 117/62; PULSE 82; RESP 16; TEMP 36.6; O2SAT 95
[2022-05-22 01:00] VITALS: BP 141/61; PULSE 72; RESP 16; TEMP 37.1; O2SAT 95
[2022-05-22 06:00] VITALS: BP 141/61; PULSE 72; RESP 16; TEMP 37.1; O2SAT 95
[2022-05-22] MEDS: Acetaminophen 500 MG Tablet 1000 MG PO ×2 (06:16→13:39)
[2022-05-22] MEDS: 0.9% Saline Lock 10 ML Syringe IV (06:20)
[2022-05-22 07:17] LABS: Hematocrit 22.8 % (40-54); Hemoglobin 7.4 g/dL (13.0-16.5); Mean Corp Hgb Conc 32.5 g/dL (32-36); Mean Corpuscular Hgb 41.1 pg (27.0-32.0); Mean Corpuscular Volume 126.7 fL (80-94); Mean Platelet Vol. 12.1 fl (6.2-12.0); POSITIVE MORPHOLOGY YES; Platelet Count 151 K/mm3 (150-450); RBC Distribution Width CV 16.2 % (11.6-14.6); White Blood Count 16.4 K/mm3 (4.4-11.0)
[2022-05-22 07:20] LABS: Scan Indicated on CBC? Y/N YES- FLAGS NOTED
[2022-05-22 10:56] VITALS: BP 142/62; PULSE 64; RESP 18; TEMP 36.6; O2SAT 96
[2022-05-22] MEDS: Multivitamins,Therapeutic Tablet 1 TABLET PO (10:58)
[2022-05-22] MEDS: Calcium (Elemental) 500 MG Tablet PO (10:58)
[2022-05-22] MEDS: hydroCHLOROthiazide 25 MG Tablet PO (10:58)
[2022-05-22] MEDS: Lisinopril 10 MG Tablet PO (10:58)
[2022-05-22] MEDS: APIXABAN 5 MG TABLET PO (10:59)
[2022-05-22 11:01] VITALS: BP 142/62; PULSE 64; RESP 18; TEMP 36.6; O2SAT 96
--- NOTE | 2022-05-22 11:05 | PCM.TXEXTCAR ---
Diet Diet Order/Speech Therapy: 05/21/22 11:55 Diet: Regular - General Is pt able to select menu?: Yes Routine Orders/Code Status Change Giang Catheter: n/a O2 Liters per Minute: n/a Routine Lab Work: CBC (QD) and BMP Wound(s) LEFT KNEE: Wound Type: Surgical Incision LEFT SPEAR: Wound Type: Surgical Incision Dressing Change: Wet to Dry Dressing Suggestions for Active Care Change Position every (hours): 4 Hours to sit in a chair: 4 Therapies Weight Bearing: Weight bearing as tolerated Extremity Affected:: Left Lower Physical Therapy: Eval and Treat (s/p left total knee arthroplasty) Occupational Therapy: Eval and Treat (s/p left total knee arthroplasty) Problem/Diagnosis (1) S/P total knee arthroplasty: Status: Acute Code(s): Z96.659 - Presence of unspecified artificial knee joint Plan Patient seen today day 2 post-op left total knee arthroplasty. Patient overall is doing very well. He had some post-op confusion/delirium which has resolved at this time. His bnarcotic medications were stopped due to the confusion and therefore he is dealing with some moderate pain at this time. He is alert and oriented today and medically stable to be transferred to TCU for skilled care Allergies/Procedures Done in Hospital Allergies tree and shrub pollen Allergy (Verified 05/20/22 10:35) Shortness of breath PINE oxycodone Adverse Reaction (Verified 05/20/22 10:35) Hallucinations Procedures: - (left knee total arthroplasty) Type of Care/Length of Stay Estimated LOS: Convalescent Care Less Than 30 days Type of Care Needed: Skilled Rehab Potential: Good Prognosis: Good Additional Orders/Day of Discharge H&P will serve as current which was dated: 05/20/22 Day of Discharge: 05/22/22 Dietary and Speech Recommendations Dietitian Recommendations/Changes: No restrictions Follow Up Care Please follow up with your Primary Care Physician in: 2 weeks Please Follow Up With: Michael Chatterjee PA Discharge Plan Admission Admit Date/Time: 05/20/22 09:14 Attending Provider: Venkat Hernandez Primary Care Provider: Angel Luis Roger Discharge Orders/Prescriptions Prescriptions: New tramadol 50 mg Tablet 50 - 100 mg PO Q6H 5 Days Qty: 40 0RF Continued hydrochlorothiazide 25 mg tablet 25 mg PO DAILY flaxseed 1,000 mg capsule 1,000 mg PO DAILY calcium-vitamin D3-vitamin K 500-200-40 mg-unit-mcg tablet,chewable 1 tab PO BID ferrous sulfate 325 mg (65 mg iron) tablet 325 mg PO DAILY lisinopril 10 mg tablet 10 mg PO DAILY omega-3 fatty acids Capsule 1,000 mg PO DAILY zkifggslcysz-bxc-flnhyyh-FA 200-0.4 mg Tablet,Chewable 2 tab PO DAILY Glucosamine Chondroitin 550-30-1 mg Capsule 1 cap PO DAILY docusate sodium [Stool Softener] 100 mg Capsule 100 mg PO DAILY PRN (Reason: Constipation) acetaminophen 500 mg tablet 1,000 mg PO Q8 Eliquis 5 mg tablet 5 mg PO BID Label Comments: STOP 3 DAYS PRIOR, LAST DOSE 05/16/22 Referrals / Follow Up: Angel Luis Roger MD [Primary Care Provider] - Disposition Disposition (needs filled in before D/C Order can be placed): Longterm Facility
[2022-05-22] MEDS: traMADol 50 MG Tablet PO (12:10)
--- NOTE | 2022-05-22 12:46 | CASEMGMT ---
Social Work Pt is ready for discharge today. Phone call to Paulina in TCU who confirms pt can admit today. Orders faxed to TCU. SW met with pt and in pt room. Pt sleeping soundly. Pt updated that d/c to TCU today and agreeable with discharge plan. Disposition: TCU, skilled level of care ANDREW Doyle
--- NOTE | 2022-05-22 13:18 | NURSING ---
Report called to Chloé on TCU.
== END 2022-05-22 14:24 | disposition skilled nursing facility (03) | DRG 470 ==
LOC: ACINP 09:14 → MS3 15:46
PROVIDERS: Anesthesiology; Admitting Provider Orthopaedic Surgery; PCP Internal Medicine; Referring Provider Orthopaedic Surgery; Visit Provider Orthopaedic Surgery
PROC: 0SRD0JZ Replacement of Left Knee Joint with Synthetic Substitute, Open Approach (ICD-10-PCS; CPT 27447; principal; 2022-05-20 11:30)
DX: M17.12 Unilateral primary osteoarthritis, left knee (principal); I48.0 Paroxysmal atrial fibrillation; Z87.891 Personal history of nicotine dependence; Z95.0 Presence of cardiac pacemaker; Z96.641 Presence of right artificial hip joint
CPT/HCPCS: 36415; 73560; 80048; 82962; 82985; 83036; 83735; 85025; 85027; 85610; 85730; 86850; 86900; 86901; 87081; 87426; 88305; 88311; 97110; 97116; 97162; 97166; 97530; 97535; 99251; C1776; J7120; A4216; C1760; G0463; J2405; J3475; J3490

== ENCOUNTER 2022-05-22 14:35 | Inpatient (IN) | payer MEDICARE, OTHER, SELFPAY ==
[2022-05-22 14:42] VITALS: RESP 16; O2SAT 91
[2022-05-22 15:45] VITALS: BMI 32.1
[2022-05-22 15:47] VITALS: BP 142/69; PULSE 70; RESP 16; TEMP 36.7; O2SAT 91
[2022-05-22] MEDS: APIXABAN 5 MG TABLET PO (17:36)
--- NOTE | 2022-05-22 19:42 | HP.PCM_ITS ---
HPI - General General Date of Admission: 05/22/22 Date of Service: 05/22/22 Chief Complaint: Here for rehabilitation. HPI Narrative MADINA CHOWDHURY, is a 87 Male who presents with followin05/20/[address] performed CT guided robotic assisted left total knee arthroplasty. 05/21/2022 Loopy, talking rapidly secondary to narcotic pain medications. 05/22/2022 Admit to TCU with debility, here for rehabilitation, strengthening, prior to discharge home with . Encephalopathy resolved. [facility] Medical History (Updated 05/22/22 @ 19:[address] Jessee Shukla MD) Alcohol use Ambulates with cane Anemia Atrial fibrillation Back pain Bilateral lower extremity edema BPH (benign prostatic hyperplasia) Cancer Cardiology follow-up encounter Complete heart block Degenerative joint disease of right hip Diverticulosis Encephalopathy Essential (primary) hypertension Former smoker H/O cataract History of Mohs micrographic surgery for skin cancer History of ulceration Hypertension Nasal bleeding NSVT (nonsustained ventricular tachycardia) Obesity Pacemaker Paroxysmal atrial fibrillation Paroxysmal atrial flutter Syncope Wears glasses Home Medications hydrochlorothiazide 25 mg tablet 25 mg PO DAILY BP 08/08/19 [History Last Taken Unknown] glucosamine sulf dipot chlr,msm,chond 550 mg-C 30 mg-alok 1 mg capsule (Glucosamine Chondroitin) 1 cap PO DAILY SUPPLEMENT 02/06/21 [History Last Taken Unknown] krcqbhfhcviv-exa-trczgtk-FA 200 mg-0.4 mg chewable tablet 2 tab PO DAILY SUPPLEMENT 02/06/21 [History Last Taken Unknown] omega-3 fatty acids 1,000 mg PO DAILY SUPPLEMENT 02/06/21 [History Last Taken Unknown] calcium-vitamin D3-vitamin K 500 mg-200 unit-40 mcg chewable tablet 1 tab PO BID SUPPLEMENT 06/27/21 [History Last Taken Unknown] ferrous sulfate 325 mg (65 mg iron) tablet 325 mg PO DAILY SUPPLEMENT 06/27/21 [History Last Taken Unknown] flaxseed 1,000 mg capsule 1,000 mg PO DAILY SUPPLEMENT 06/27/21 [History Last Taken Unknown] lisinopril 10 mg tablet 10 mg PO DAILY BP 11/12/21 [History Last Taken 05/20/22] acetaminophen 500 mg tablet 1,000 mg PO Q8 PAIN 05/07/22 [History Last Taken Unknown] apixaban 5 mg tablet (Eliquis) 5 mg PO BID BLOOD THINNER 05/07/22 [History Last Taken 05/16/22] docusate sodium 100 mg capsule (Stool Softener) 100 mg PO DAILY PRN Constipation 05/07/22 [History Last Taken Unknown] tramadol 50 mg tablet 50 - 100 mg PO Q6H pain 5-10 05/22/22 [History Last Taken Unknown] Allergy/AdvReac Type Severity Reaction Status Date / Time tree and shrub pollen Allergy Shortness Verified 05/20/22 10:35 of breath oxycodone AdvReac Hallucinati Verified 05/20/22 10:35 ons Family History Father CVA (cerebral vascular accident) Surgical History (Updated 05/22/22 @ 19:[address] Jessee Shukla MD) H/O foot surgery 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) History of removal of skin mole History of right hip replacement History of total hip arthroplasty History of total left knee replacement Social History (Updated 05/22/22 @ 19:[address] Jessee Shukla MD) household members: spouse Smoking Status: Former smoker alcohol intake: current substance use type: does not use ROS Constitutional Constitutional: Denies chills, fever(s) or weight gain ENT HEENT: Denies headache(s), nasal congestion or nasal discharge Cardiovascular Cardiovascular: Denies chest pain or palpitations Respiratory/Chest Respiratory/Chest: Denies cough, excessive phlegm production or shortness of breath with exertion Gastrointestinal Gastrointestinal: Denies abdominal pain, nausea or vomiting Genitourinary Genitourinary: Denies dysuria Musculoskeletal Musculoskeletal: Denies joint pain or joint swelling Integumentary Integumentary: Denies rash or wounds Neurologic Neurologic: Denies focal weakness, numbness or tingling Psychiatric Psychiatric: Denies anxiety, auditory hallucinations, depression, homicidal ideation or suicidal ideation Vital Signs Vital Signs Vital Signs: 05/22/22 15:47 05/22/22 14:42 Temperature 98.1 F Temperature Source Temporal Pulse Rate 70 Pulse Rhythm Regular Pulse Strength Normal (2+) Respiratory Rate 16 16 Respiratory Effort Normal Non-Labored Respiratory Depth Normal Respiratory Pattern Normal Blood Pressure 142/69 H Blood Pressure Mean 93 Blood Pressure Source Monitor Blood Pressure Position Semi-Fowlers Blood Pressure Location Right Arm Pulse Ox 91 91 Oxygen Delivery Method Room Air Room Air Weight Weight: 98.571 kg Body Mass Index (BMI) 32.1 Physical Exam Const alert General Appearance: cooperative HEENT normocephalic Eyes PERRL and EOMs intact bilaterally Neck supple, no JVD and no carotid bruits Resp normal respiratory effort, normal air movement and clear to auscultation bilaterally Cardio regular rate and regular rhythm GI normal to inspection, nondistended, normoactive bowel sounds, non-tender and non-distended Extremity normal capillary refill General Extremity: Negative for edema Skin no rashes or lesions noted General Skin Exam: no breakdown Psych affect normal Appearance: appropriate Assessment & Plan Assessment/Plan (1) Debility: (2) Status post total left knee replacement: (3) Encephalopathy: (4) Essential (primary) hypertension: (5) Paroxysmal atrial fibrillation: (6) Iron deficiency anemia: PLAN: Plan 87 year old male with below past medical history hospitalized for left total knee replacement 05/20/[address] Hernandez, postoperative course complicated by narcotic related encephalopathy, admitted to TCU with debility, here for rehabilitation, strengthening, prior to discharge home with . * Debility - PT/OT. * Pain - Tylenol 1000mg q8h, Tramadol 50-100mg q6h prn. * Bowel - Miralax 17gm daily, senna/colace 2 tablets bid, MOM 30ml daily prn. * Adult immunization - Administer pneumonia vaccine, covid19 vaccine, flu vaccine. * DVT prophylaxis - Not necessary, already on Eliquis. * Atrial fibrillation - Eliquis 5mg bid. * Iron deficiency anemia - Ferrous 325mg daily. * Hypertension - Lisinopril 10mg daily, HCTZ 25mg daily.
[2022-05-22] MEDS: Acetaminophen 500 MG Tablet 1000 MG PO (20:13)
[2022-05-23 05:00] VITALS: BP 151/70; PULSE 69; RESP 16; TEMP 36.7
[2022-05-23 05:42] LABS: Absolute Lymphocyte Count 1.03 X10^3/uL (0.83-4.51); Absolute Neutrophil Count 7.2 X10^3/uL (2.0-7.7); Basophil# 0.02 X10^3/uL; Basophil% 0.2 % (0-1); Eosinophil# 0.02 X10^3/uL; Eosinophils% 0.2 % (0-5); Hematocrit 20.2 % (40-54); Hemoglobin 6.6 g/dL (13.0-16.5); Lymphocyte # 1.03 X10^3/ul (0.83-4.51); Lymphocyte % 7.8 % (19-41); Mean Corp Hgb Conc 32.7 g/dL (32-36); Mean Corpuscular Hgb 41.3 pg (27.0-32.0); Mean Corpuscular Volume 126.3 fL (80-94); Mean Platelet Vol. 11.4 fl (6.2-12.0); Monocyte# 4.62 X10^3/uL; Monocyte% 35.1 % (0-10); NRBC Flagged by Analyzer 0 % (0-5); Neutrophil # 7.19 X10^3/uL (2.7-7.7); Neutrophil % 54.6 % (47-70); POSITIVE DIFFERENTIAL YES; POSITIVE MORPHOLOGY YES; Platelet Count 127 K/mm3 (150-450); RBC Distribution Width CV 16.1 % (11.6-14.6); RBC Distribution Width SD 73.9 fl (35.1-43.9); White Blood Count 13.2 K/mm3 (4.4-11.0)
[2022-05-23] MEDS: Lisinopril 10 MG Tablet PO (05:43)
[2022-05-23] MEDS: APIXABAN 5 MG TABLET PO ×2 (05:43→19:48)
[2022-05-23] MEDS: hydroCHLOROthiazide 25 MG Tablet PO (05:43)
[2022-05-23] MEDS: Acetaminophen 500 MG Tablet 1000 MG PO ×2 (05:44→19:49)
[2022-05-23 05:54] LABS: Differential Indicated SCAN CRITERIA MET
[2022-05-23 05:59] LABS: Anion Gap 5 (5-15); BUN 25 mg/dL (7-18); BUN/Creat Ratio 25.5 RATIO (10-20); Calcium,Total 8.3 mg/dL (8.5-10.1); Chloride 102 mmol/L (98-107); Creatinine, Serum 0.98 mg/dL (0.70-1.30); EST Glomerular Filtration Rate 77 mL/min (>60); Est Glom Filt Rate - Afr Amer 93 mL/min (>60); Estimated Creatinine Clearance 55.11 ml/min; Glucose 102 mg/dL (74-106); Potassium 3.8 mmol/L (3.5-5.1); Sodium Level 136 mmol/L (136-145)
[2022-05-23 06:21] LABS: Anisocytosis 2+; Atypical Lymphocyte 1+ %; Macrocytosis 3+; Platelet Estimate SLT DEC (ADEQ)
[2022-05-23] MEDS: Pneumococcal Vaccine 20 Valent 0.5 ML Syringe IM (09:58)
--- NOTE | 2022-05-23 10:59 | NURSING ---
Hgb 6.[address] Moreno made aware and orders 2 units PRBCs and type and cross. Consent signed and leaves for [facility] room 324 for infusion at 1030.
[2022-05-23] MEDS: traMADol 50 MG Tablet PO ×2 (11:40→22:36)
[2022-05-23] MEDS: Senna/Docusate Sodium 1 Tablet 2 TABLET PO (19:47)
--- NOTE | 2022-05-23 19:58 | NURSING ---
Addendum entered by Lorena Boyle 05/24/22 11:49: dr shukla updated on below, new order for chest xray. Original Note: Patient and state patient has had a reaction to the TB test before and do not want to do the 2-step. Note left for Dr. Shukla requesting a chest x-ray. RN aware.
[2022-05-24] MEDS: Lisinopril 10 MG Tablet PO (05:36)
[2022-05-24] MEDS: APIXABAN 5 MG TABLET PO ×2 (05:36→17:09)
[2022-05-24] MEDS: hydroCHLOROthiazide 25 MG Tablet PO (05:36)
[2022-05-24] MEDS: Acetaminophen 500 MG Tablet 1000 MG PO ×3 (05:37→20:52)
[2022-05-24] MEDS: Senna/Docusate Sodium 1 Tablet 2 TABLET PO ×2 (05:54→17:09)
[2022-05-24] MEDS: traMADol 50 MG Tablet PO ×3 (09:10→23:07)
--- NOTE | 2022-05-24 10:54 | NURSING ---
therapy gave pt shower, drsg changed to RT lopez incision, serosand drng noted. surgical mepilex intact with shadow drng marked by previous shift. thigh high teds applied.
[2022-05-24] MEDS: Ferrous Sulfate 325 MG Tablet PO (12:12)
--- NOTE | 2022-05-24 12:50 | RAD_ITS ---
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 This report was created using [employer] report generation technology. COMPARISON: 05/24/2014. FINDINGS: LUNGS AND PLEURAL SPACES: No suspicious infiltrates. No visible calcified granulomas. No pneumothorax. No effusion. HEART: Unremarkable. Cardiac silhouette not enlarged. MEDIASTINUM: Central airways and mediastinal contour are unremarkable. BONES/JOINTS: Unremarkable. SOFT TISSUES: Unremarkable. TUBES, LINES AND DEVICES: Dual-chamber pacing lead tips remain in the right atrium and right ventricle. RAD/Chest PA and Lateral IMPRESSION: No acute findings in the chest and no interval change when compared to 05/24/2014. Electronically Signed: Pierre Crump MD at 13:08 EST ,
[2022-05-24 14:00] VITALS: BP 127/64; PULSE 75; RESP 16; TEMP 36.3; O2SAT 96
[2022-05-24 18:00] LABS: Hematocrit 27.8 % (40-54); Hemoglobin 9.3 g/dL (13.0-16.5)
[2022-05-24 20:40] VITALS: O2SAT 93
[2022-05-25] MEDS: hydroCHLOROthiazide 25 MG Tablet PO (05:25)
[2022-05-25] MEDS: Polyethylene Glycol 3350 17 GM PACKET PO (05:25)
[2022-05-25] MEDS: Senna/Docusate Sodium 1 Tablet 2 TABLET PO ×2 (05:25→17:06)
[2022-05-25] MEDS: Acetaminophen 500 MG Tablet 1000 MG PO ×3 (05:25→22:17)
[2022-05-25] MEDS: Lisinopril 10 MG Tablet PO (05:25)
[2022-05-25] MEDS: APIXABAN 5 MG TABLET PO ×2 (05:25→17:06)
[2022-05-25 08:54] VITALS: PULSE 70; RESP 18; O2SAT 96
[2022-05-25] MEDS: 0.9% Saline Lock 10 ML Syringe IV (09:18)
[2022-05-25] MEDS: traMADol 50 MG Tablet PO ×3 (09:33→22:17)
[2022-05-25] MEDS: Ascorbic Acid 500 MG Tablet PO (12:22)
[2022-05-25] MEDS: Ferrous Sulfate 325 MG Tablet PO (12:22)
[2022-05-25 13:55] VITALS: BP 128/55; PULSE 70; RESP 16; TEMP 36.6; O2SAT 98
[2022-05-26] MEDS: hydroCHLOROthiazide 25 MG Tablet PO (05:12)
[2022-05-26] MEDS: Senna/Docusate Sodium 1 Tablet 2 TABLET PO ×2 (05:12→17:09)
[2022-05-26] MEDS: Acetaminophen 500 MG Tablet 1000 MG PO ×3 (05:13→21:45)
[2022-05-26] MEDS: Polyethylene Glycol 3350 17 GM PACKET PO (05:13)
[2022-05-26] MEDS: APIXABAN 5 MG TABLET PO ×2 (05:13→17:09)
[2022-05-26] MEDS: traMADol 50 MG Tablet PO ×3 (05:14→17:55)
[2022-05-26] MEDS: Lisinopril 10 MG Tablet PO (05:15)
[2022-05-26 05:26] VITALS: BP 147/63
[2022-05-26 10:09] LABS: Pathologist Review Reviewed
--- NOTE | 2022-05-26 10:20 | NURSING ---
Art Appraiser Note; Activity Asset: Missy Soto also likes to be called Mushtaq. Mushtaq is independent in his choice of daily activities. He enjoys reading his [employer] books. When not w/therapy he stated he will rest, spend time w/his , read or watch tv. He dose have a word puzzle book to past the time as well.
--- NOTE | 2022-05-26 10:57 | PCM.PN.DRR ---
TCU RX Drug Regimen Review Subjective: TCU Admission. 87 YOM hospitalized for left total knee replacement 05/20/[address] Hernandez, postoperative course complicated by narcotic related encephalopathy. Admitted to TCU with debility for strengthening and rehabilitation. Objective: Allergies tree and shrub pollen Allergy (Verified 05/20/22 10:35) Shortness of breath PINE oxycodone Adverse Reaction (Verified 05/20/22 10:35) Hallucinations Current Medications Generic Name Dose Route Start Last Admin Trade Name Freq PRN Reason Stop Dose Admin Acetaminophen 1,000 mg 05/23/22 22:00 05/26/22 05:13 Acetaminophen 500 Mg Tablet PO 1,000 mg Q8 BOGDAN Administration Apixaban 5 mg 05/23/22 19:00 05/26/22 05:13 Apixaban 5 Mg Tablet PO 5 mg BID BOGDAN Administration Ascorbic Acid 500 mg 05/25/22 12:00 05/25/22 12:22 Ascorbic Acid 500 Mg Tablet PO 500 mg 1200 BOGDAN Administration Ferrous Sulfate 325 mg 05/24/22 12:00 05/25/22 12:22 Ferrous Sulfate 325 Mg Tablet PO 325 mg DAILY@1200 BOGDAN Administration Hydrochlorothiazide 25 mg 05/24/22 06:00 05/26/22 05:12 Hydrochlorothiazide 25 Mg Tablet PO 25 mg DAILY BOGDAN Administration Lisinopril 10 mg 05/24/22 06:00 05/26/22 05:15 Lisinopril 10 Mg Tablet PO 10 mg DAILY BOGDAN Administration Magnesium Hydroxide 30 ml 05/23/22 18:56 Magnesium Hydroxide 30 Ml Udc PO DAILY PRN Constipation Polyethylene Glycol 17 gm 05/24/22 06:00 05/26/22 05:13 Polyethylene Glycol 3350 17 Gm Packet PO 17 gm DAILY BOGDAN Administration Senna/Docusate Sodium 2 tablet 05/23/22 19:00 05/26/22 05:12 Senna/Docusate Sodium 1 Tablet PO 2 tablet BID BOGDAN Administration Sodium Chloride 10 - 40 ml 05/24/22 04:21 05/25/22 09:18 0.9% Saline Lock 10 Ml Syringe IV 10 ml UD PRN Administration SALINE FLUSH Tramadol HCl 50 - 100 mg 05/23/22 19:00 05/26/22 05:14 Tramadol 50 Mg Tablet PO 100 mg Q6H PRN PRN Administration Pain Score 4-10 Problem List (Last Reviewed 05/22/22 @ 19:[address] Jessee Shukla MD) Iron deficiency anemia (Acute) Encephalopathy (Acute) Status post total left knee replacement (Acute) Debility (Acute) Paroxysmal atrial fibrillation (Chronic) Essential (primary) hypertension (Chronic) Vital Signs Temp Pulse Resp BP Pulse Ox O2 Del Method 97.9 F 70 16 147/63 H 98 Room Air 05/25/22 13:55 05/25/22 13:55 05/25/22 13:55 05/26/22 05:26 05/25/22 13:55 05/25/22 13:55 Oxygen Delivery Method Room Air Weight: 98.571 kg Body Mass Index (BMI) 32.1 Sodium 136 mmol/L (136-145) 05/23/22 05:18 Potassium 3.8 mmol/L (3.5-5.1) 05/23/22 05:18 Chloride 102 mmol/L (98-107) 05/23/22 05:18 Carbon Dioxide 29.0 mmol/L (21.0-32.0) 05/23/22 05:18 Anion Gap 5 (5-15) 05/23/22 05:18 BUN 25 mg/dL (7-18) H 05/23/22 05:18 Creatinine 0.98 mg/dL (0.70-1.30) 05/23/22 05:18 Est GFR (MDRD) Af Amer 93 mL/min (>60) 05/23/22 05:18 Est GFR (MDRD) Non-Af 77 mL/min (>60) 05/23/22 05:18 BUN/Creatinine Ratio 25.5 RATIO (10-20) H 05/23/22 05:18 Glucose 102 mg/dL (74-106) 05/23/22 05:18 Assessment/Plan: 1. Pain: acetaminophen 1000mg PO Q8 and tramadol 50-100mg PO Q6H PRN pain 4-10. Resident has received 9 doses of tramadol for pain scores ranging from 4-8 in the knee. Please continue to monitor for increased pain, PRN usage, constipation, confusion and respiratory depression. 2. Bowel: Miralax 17gm PO daily, senna/docusate 2T PO BID and MOM 30mL PO daily PRN constipation. Last documented bowel movement 05/22. Please continue to monitor for constipation and PRN usage (no doses given so far.) 3. Atrial fibrillation: apixaban 5mg PO BID. Please continue to monitor for S/S of bleeding and hemoglobin (last 9.3g/dL). 4. Iron deficiency anemia: ferrous sulfate 325mg PO lunch and ascorbic acid 500mg PO lunch. Please continue to monitor hemoglobin, constipation and dark stools. 5. Hypertension: lisinopril 10mg PO daily and hydrochlorothiazide 25mg PO daily. Please continue to monitor for BP (last 147/63), sodium (last 136mmol/L), potassium (last 3.8mmol/L), cough, and renal function. Assessment/Plan for indications treated with psychotropic medications: None Medical chart and medication regimen reviewed. The following medication irregularities or issues were identified: None Date of Note:: 05/26/22
--- NOTE | 2022-05-26 11:43 | NURSING ---
in today and reports surgical Mepilex to left knee can be removed 5 days after surgery and apply CDD as needed daily afterwords.
[2022-05-26] MEDS: Ascorbic Acid 500 MG Tablet PO (13:07)
[2022-05-26] MEDS: Ferrous Sulfate 325 MG Tablet PO (13:07)
[2022-05-26] MEDS: Magnesium Hydroxide 30 ML UDC PO (13:07)
[2022-05-26 14:00] VITALS: BP 135/62; PULSE 69; RESP 16; TEMP 36.3; O2SAT 97
--- NOTE | 2022-05-26 14:05 | NURSING ---
Dr. Hernandez office contacted regarding dressing changes to left knee. Nurse at office unable to locate dressing orders but reports usual order is to remove surgical mepilex after 5 days and no shower while draining. Dressing removed at this time. Small amount of drainage to dressing and scant amount of blood from incision. Incision is well approximated and no redness/swelling/purulent drainage noted. Area cleaned and ABD applied.
--- NOTE | 2022-05-26 15:19 | CASEMGMT ---
Social Work Met with patient to complete initial assessment. Introduced self and role. present in room. Pt granted permission to complete assessment with present. Verified/updated contacts. Discussed code status and MOLST form. Pt confirmed full code. MOLST placed on chart. Educated to Medicare benefit. Encouraged to contact secondary insurance to ensure copay coverage. Ps goal is to return home with at [facility]. SW to continue to follow for DC planning. Linda Ramesh, DAIRY MANUFACTURING TECHNOLOGIST ROTARY SLICING MACHINE OPERATOR
[2022-05-26] MEDS: 0.9% Saline Lock 10 ML Syringe IV (17:55)
[2022-05-26 22:00] VITALS: PULSE 69; RESP 16; O2SAT 96
[2022-05-27] MEDS: traMADol 50 MG Tablet PO ×3 (00:21→16:51)
[2022-05-27] MEDS: Senna/Docusate Sodium 1 Tablet 2 TABLET PO ×2 (05:09→16:56)
[2022-05-27] MEDS: Polyethylene Glycol 3350 17 GM PACKET PO (05:09)
[2022-05-27] MEDS: Lisinopril 10 MG Tablet PO (05:10)
[2022-05-27] MEDS: hydroCHLOROthiazide 25 MG Tablet PO (05:10)
[2022-05-27] MEDS: APIXABAN 5 MG TABLET PO (05:10)
[2022-05-27] MEDS: Acetaminophen 500 MG Tablet 1000 MG PO ×3 (05:10→21:04)
[2022-05-27 05:47] LABS: Hematocrit 26.9 % (40-54); Hemoglobin 8.4 g/dL (13.0-16.5)
[2022-05-27] MEDS: Ferrous Sulfate 325 MG Tablet PO (12:38)
[2022-05-27] MEDS: Ascorbic Acid 500 MG Tablet PO (12:38)
[2022-05-27 13:57] VITALS: BP 126/68; PULSE 70; RESP 20; TEMP 36.3; O2SAT 98
[2022-05-27] MEDS: 0.9% Saline Lock 10 ML Syringe IV (20:19)
--- NOTE | 2022-05-28 03:00 | NURSING ---
Pt c/o not having an appetite and feeling dehydrated. States he doesn't drink a lot of water because he doesn't want to be incontinent at night time. Asked if he would be willing to use a urinal at night to prevent urge incontinency and pt believes this will help. Note left for Dr. Shukla regarding the loss of appetite.
[2022-05-28] MEDS: Acetaminophen 500 MG Tablet 1000 MG PO ×3 (04:55→21:10)
[2022-05-28] MEDS: Senna/Docusate Sodium 1 Tablet 2 TABLET PO ×2 (04:55→17:13)
[2022-05-28] MEDS: hydroCHLOROthiazide 25 MG Tablet PO (04:55)
[2022-05-28] MEDS: Lisinopril 10 MG Tablet PO (04:56)
[2022-05-28 04:57] VITALS: BP 140/72; PULSE 78
--- NOTE | 2022-05-28 09:49 | CASEMGMT ---
Addendum entered by Linda Ramesh 05/28/22 12:37: Pt decided on DC 05/29. BIMS () and PHQ-9 (11/01) completed for MDS assessment. Original Note: Social Work IDT met with patient and for care plan meeting. Discussed patient's progress in PT/OT/SN. Educated to Medicare benefit. Encouraged to contact secondary insurance to ensure copay coverage. participated in therapy training. Offered for pt to set DC date when ready. Pt would like to DC tomorrow, Thursday or Thursday. to discuss with son and decide on a date. Pt requesting Pt at [facility] and no DME needs. SW made referral to [facility] and await DC date. Plan: DC home with , [facility] PT OSMAR Hernandez
[2022-05-28] MEDS: traMADol 50 MG Tablet PO ×3 (10:50→23:27)
[2022-05-28] MEDS: Ascorbic Acid 500 MG Tablet PO (11:51)
[2022-05-28] MEDS: Ferrous Sulfate 325 MG Tablet PO (11:51)
[2022-05-28 14:00] VITALS: BP 140/76; PULSE 70; RESP 14; TEMP 36.3; O2SAT 98
--- NOTE | 2022-05-28 19:49 | DS.PCM_ITS ---
Providers Date of Admission: 05/22/22 Primary Care Physician: Dr. Angel Luis Roger MD Reason For Visit: LEFT TOTAL KNEE ROBOT Diagnosis Discharge Diagnosis (1) Debility: Status: Acute Code(s): R53.81 - Other malaise (2) Status post total left knee replacement: Status: Acute Code(s): Z96.652 - Presence of left artificial knee joint (3) Encephalopathy: Status: Acute Code(s): G93.40 - Encephalopathy, unspecified (4) Essential (primary) hypertension: Status: Chronic Code(s): I10 - Essential (primary) hypertension (5) Paroxysmal atrial fibrillation: Status: Chronic Code(s): I48.0 - Paroxysmal atrial fibrillation (6) Iron deficiency anemia: Status: Acute Code(s): D50.9 - Iron deficiency anemia, unspecified Plan 87 year old male with below past medical history hospitalized for left total knee replacement 05/20/[address] Hernandez, postoperative course complicated by narcotic related encephalopathy, admitted to TCU with debility, here for rehabilitation, strengthening, prior to discharge home with . * Debility - PT/OT. * Pain - Tylenol 1000mg q8h, Tramadol 50-100mg q6h prn. * Bowel - Miralax 17gm daily, senna/colace 2 tablets bid, MOM 30ml daily prn. * Adult immunization - Administer pneumonia vaccine, covid19 vaccine, flu vaccine. * DVT prophylaxis - Not necessary, already on Eliquis. * Atrial fibrillation - Eliquis 5mg bid. * Iron deficiency anemia - Ferrous 325mg daily. * Hypertension - Lisinopril 10mg daily, HCTZ 25mg daily. Medications at Discharge Home Medications acetaminophen 500 mg tablet 1,000 mg PO Q8 #0 tabs 05/28/22 apixaban 5 mg tablet (Eliquis) 5 mg PO BID #0 tabs 05/28/22 ascorbic acid (vitamin C) 500 mg tablet 500 mg PO 1200 #0 tabs 05/28/22 ferrous sulfate 325 mg (65 mg iron) tablet (FeroSul) 325 mg PO DAILY@1200 30 days #30 tabs 05/28/22 hydrochlorothiazide 25 mg tablet 25 mg PO DAILY #0 tabs 05/28/22 lisinopril 10 mg tablet 10 mg PO DAILY #0 tabs 05/28/22 polyethylene glycol 3350 17 gram oral powder packet 17 g PO DAILY 30 days #30 ea 05/28/22 sennosides 8.6 mg-docusate sodium 50 mg tablet (Stool Softener-Stimulant Laxative) 2 tab PO BID 30 days #120 tabs 05/28/22 tramadol 50 mg tablet 50 - 100 mg PO Q6H PRN PRN Pain Score 4-10 7 days #28 tabs 05/28/22 Hospital Course Operations total knee replacement (Left.) Procedures None Summary of Care Provided Minutes Spent on Discharge: 35 Hospital Course: 87 year old male with below past medical history hospitalized for left total knee replacement 05/20/[address] Hernandez, postoperative course complicated by narcotic related encephalopathy, admitted to TCU with debility, here for rehabilitation, strengthening, prior to discharge home with . 05/23/2022 Transfused 2 units PRBC. 05/28/2022 Golytely 1 Liter po x 1 for constipation/nausea/burping. 05/29/2022 Doppler ultrasound left lower extremity pending. Discharge home with 05/29/2022, [facility]. Physical Exam Const alert General Appearance: cooperative HEENT normocephalic Eyes PERRL and EOMs intact bilaterally Neck supple, no JVD and no carotid bruits Resp normal respiratory effort, normal air movement and clear to auscultation bilaterally Cardio regular rate and regular rhythm GI normal to inspection, nondistended, normoactive bowel sounds, non-tender and non-distended Extremity normal capillary refill General Extremity: edema left Skin no rashes or lesions noted General Skin Exam: no breakdown Psych affect normal Appearance: appropriate Weight / BMI Weight Weight: 98.067 kg Body Mass Index (BMI) 32.1 ABG / Lab / Microbiology Data Result Diagrams: 05/27/22 05:20 05/23/22 05:18 Microbiology: Microbiology 05/26/22 05:28 Nasal Secretion SARS-CoV-2 Antigen (Rapid) - Final 05/24/22 08:50 Nasal Secretion SARS-CoV-2 Antigen (Rapid) - Final D/C Instructions Discharge Diet: No restrictions Discharge Activity: Return to Normal Activity, May Shower and Use Walker May resume sexual activity in: 6 weeks Weight Bearing Status: Weight bearing as tolerated Call your doctor if you observe: Fever of 101 or Higher, Inability to urinate, Inability to have a bowel movement, Shortness of breath, Dizziness, Fainting spells, Swelling in the ankles, Chest pain and Uncontrolled pain Additional Instructions: Discharge home with 05/29/2022, [facility]. Please Follow Up With: Venkat Hernandez DO When: As scheduled. Meaningful Use Info Meaningful Use Diagnoses (Choose all that apply): None applicable Discharge Plan Admission Admit Date/Time: 05/22/22 14:35 Primary Reason for Your Visit: Debility. Attending Provider: Jessee Shukla Chi Primary Care Provider: Angel Luis Roger Instructions Additional Instructions / Restrictions: Discharge home with 05/29/2022, [facility]. Discharge Orders/Prescriptions Prescriptions: New acetaminophen 500 mg Tablet 1,000 mg PO Q8 Qty: 0 0RF Eliquis 5 mg Tablet 5 mg PO BID Qty: 0 0RF ascorbic acid (vitamin C) 500 mg Tablet 500 mg PO 1200 Qty: 0 0RF ferrous sulfate [FeroSul] 325 mg (65 mg iron) Tablet 325 mg PO DAILY@1200 30 Days Qty: 30 0RF polyethylene glycol 3350 17 gram Powder In Packet 17 g PO DAILY 30 Days Qty: 30 0RF lisinopril 10 mg Tablet 10 mg PO DAILY Qty: 0 0RF hydrochlorothiazide 25 mg Tablet 25 mg PO DAILY Qty: 0 0RF sennosides-docusate sodium [Stool Softener-Stimulant Laxat] 8.6-50 mg Tablet 2 tab PO BID 30 Days Qty: 120 0RF tramadol 50 mg Tablet 50 - 100 mg PO Q6H PRN PRN (Reason: Pain Score 4-10) 7 Days Qty: 28 0RF Discontinued hydrochlorothiazide 25 mg tablet 25 mg PO DAILY flaxseed 1,000 mg capsule 1,000 mg PO DAILY calcium-vitamin D3-vitamin K 500-200-40 mg-unit-mcg tablet,chewable 1 tab PO BID ferrous sulfate 325 mg (65 mg iron) tablet 325 mg PO DAILY lisinopril 10 mg tablet 10 mg PO DAILY omega-3 fatty acids Capsule 1,000 mg PO DAILY [id number] 200-0.4 mg Tablet,Chewable 2 tab PO DAILY Glucosamine Chondroitin 550-30-1 mg Capsule 1 cap PO DAILY docusate sodium [Stool Softener] 100 mg Capsule 100 mg PO DAILY PRN (Reason: Constipation) acetaminophen 500 mg tablet 1,000 mg PO Q8 Eliquis 5 mg tablet 5 mg PO BID Label Comments: STOP 3 DAYS PRIOR, LAST DOSE 05/16/22 tramadol 50 mg tablet 50 - 100 mg PO Q6H Referrals / Follow Up: Angel Luis Roger MD [Primary Care Provider] - Disposition Disposition (needs filled in before D/C Order can be placed): Home, Self Care
[2022-05-28] MEDS: Electrolyte Solution/Peg's 4000 ML 1000 ML PO (21:09)
[2022-05-29 05:26] LABS: Hematocrit 25.7 % (40-54); Hemoglobin 8.4 g/dL (13.0-16.5)
[2022-05-29] MEDS: Lisinopril 10 MG Tablet PO (06:23)
[2022-05-29] MEDS: hydroCHLOROthiazide 25 MG Tablet PO (06:23)
[2022-05-29] MEDS: Acetaminophen 500 MG Tablet 1000 MG PO (06:23)
--- NOTE | 2022-05-29 08:46 | NURSING ---
Retoucher Note; MDS Complete
--- NOTE | 2022-05-29 08:54 | NURSING ---
Addendum entered by Lorena Boyle 05/29/22 10:07: vascular did doppler and negative for DVT Original Note: pt has doppler ordered of LLE d/t edema. pt showered by WALDE[facility]. Awaiting on division order technician
[2022-05-29 09:29] VITALS: PULSE 61; RESP 16; O2SAT 97
[2022-05-29] MEDS: traMADol 50 MG Tablet PO (10:31)
[2022-05-29] MEDS: Ascorbic Acid 500 MG Tablet PO (12:15)
[2022-05-29] MEDS: Ferrous Sulfate 325 MG Tablet PO (12:15)
--- NOTE | 2022-06-03 10:43 | MDS.RN ---
Information for the mds was obtained from review of the clinical record, interview of resident, staff, and direct observation of resident's care.
== END 2022-05-29 12:41 | disposition home or self-care (01) | DRG 561 ==
PROVIDERS: Admitting Provider Family Medicine Geriatric Medicine; PCP Internal Medicine; Visit Provider Family Medicine Geriatric Medicine
DX: Z47.1 Aftercare following joint replacement surgery (principal); D50.9 Iron deficiency anemia, unspecified; I48.0 Paroxysmal atrial fibrillation; I10 Essential (primary) hypertension; Z96.652 Presence of left artificial knee joint; Z87.891 Personal history of nicotine dependence; N40.0 Benign prostatic hyperplasia without lower urinary tract symptoms; Z79.899 Other long term (current) drug therapy; Z79.01 Long term (current) use of anticoagulants; Z95.1 Presence of aortocoronary bypass graft
CPT/HCPCS: 36415; 71046; 80048; 85014; 85018; 85025; 86850; 86900; 86901; 86920; 86922; 87426; 90677; 97110; 97116; 97162; 97166; 97530; 97535; 97802; G0009; J7040; P9016; A4216; J1940

== ENCOUNTER 2022-05-23 11:27 | Observation (INO) | payer MEDICARE, OTHER, SELFPAY ==
[2022-05-23 12:33] VITALS: BP 131/61; PULSE 70; RESP 18; TEMP 37.1; O2SAT 96
[2022-05-23 12:48] VITALS: BP 131/66; PULSE 70; RESP 18; TEMP 37.2; O2SAT 95
[2022-05-23 13:48] VITALS: BP 148/73; PULSE 70; RESP 18; TEMP 37.1; O2SAT 98
[2022-05-23] MEDS: Furosemide 20 MG/2 ML VIAL IV (14:40)
[2022-05-23] MEDS: 0.9% Saline Lock 10 ML Syringe IV (14:40)
[2022-05-23 14:41] VITALS: BP 142/69; PULSE 72; RESP 20; O2SAT 96
--- NOTE | 2022-05-23 15:35 | CHAPLAIN ---
Type of Pastoral Visit _x__ Initial Visit ___ Follow-up Visit ___ On-call Visit ___ General Patient Visit ___ Spiritual Assessment ___ Family Conference ___ Bereavement ___ Rapid Response ___ Code Blue ___ Other (describe below) Pastoral Care Referral From _x__ Patient ___ Family ___ Nurse ___ Physician ___ Palletizer Operator ___ Movie Star ___ Other (describe below) Sacrament/Intervention _x__ Active listening ___ Anointing ___ Pentecostal ___ Bereavement ___ Communion ___ Cindy exploration ___ _x__ Life review ___ Prayer ___ Reconciliation ___ Sacrament of Sick ___ Supportive presence ___ Wedding ___ Other (describe below) Pastoral Comments patient had been [place] [facility] [place] [facility] so initially this merchandiser seasonal was unable to locate the patient; pt however is talkative and explains his situation with acknowledgement that he has no current needs; spouse of 57 years is with him
[2022-05-23 15:51] VITALS: BP 147/73; PULSE 69; RESP 20; TEMP 37.3; O2SAT 95
[2022-05-23 16:06] VITALS: BP 147/74; PULSE 70; RESP 20; TEMP 37.2; O2SAT 96
== END 2022-05-23 18:02 | disposition home or self-care (01) ==
PROVIDERS: Admitting Provider Family Medicine Geriatric Medicine; PCP Internal Medicine; Visit Provider Family Medicine Geriatric Medicine
DX: D64.89 Other specified anemias (principal)
CPT/HCPCS: 86850; 86900; 86901; 86920; 86922; J7040; P9016; A4216; J1940

== ENCOUNTER 2022-05-23 18:03 | Inpatient (IN) | payer MEDICARE, OTHER, SELFPAY | END 2022-05-23 18:26 | disposition home or self-care (01) | DRG 561 | LOC: TCU 18:07 | PROVIDERS: Admitting Provider Family Medicine Geriatric Medicine; PCP Internal Medicine; Visit Provider Family Medicine Geriatric Medicine | DX: Z47.1 Aftercare following joint replacement surgery (principal); D50.9 Iron deficiency anemia, unspecified; I48.0 Paroxysmal atrial fibrillation; I10 Essential (primary) hypertension; E66.9 Obesity, unspecified; N40.0 Benign prostatic hyperplasia without lower urinary tract symptoms; Z96.652 Presence of left artificial knee joint; Z95.0 Presence of cardiac pacemaker; Z87.891 Personal history of nicotine dependence; Z79.899 Other long term (current) drug therapy; Z79.01 Long term (current) use of anticoagulants; Z68.32 Body mass index [BMI] 32.0-32.9, adult ==

== ENCOUNTER → 2022-05-29 | Outpatient (CLI) | payer MEDICARE, OTHER, SELFPAY ==
--- NOTE | 2022-05-29 09:09 | VDLE_ITS ---
Reason For Study: swelling Procedure LEFT This is a venous duplex using B-mode, color GSV is normal. flow and spectral Doppler. CFV is compressible, spontaneous, competent, Exam performed portable in patient room. and demonstrates pulsatile venous flow. The exam was abbreviated due to the COVID 19 FV is compressible, spontaneous, competent protocol. and demonstrates pulsatile venous flow. The exam was diagnostic. POP V is compressible, spontaneous, competent A preliminary report was called and/or faxed and demonstrates pulsatile venous flow. to the pt's RN. T/P Trunk is compressible. PTV is compressible. LT PerV is compressible. VL/Venous Duplex US, Unilateral Interpretation Summary Deep veins of the left lower extremity are patent and compressible segmentally. There is no evidence of left lower extremity deep vein thrombosis. Valvular competence appears intac t within the proximal deep venous system on the left . The left great saphenous vein appears patent a nd compressible segmentally. Pulsatile flow is noted in the left lower extremity deep venous sy stem, which may be indicative of elevated central venous pressure (i.e. congestive heart failure, pulmonary hypertension, etc.). Clinical correlation is advised. Ordering Physician: Jessee Shukla Chi Performed By: Simón Huddleston RVT
== END | disposition home or self-care (01) ==
LOC: CVS 09:08
PROVIDERS: PCP Internal Medicine; Referring Provider Family Medicine Geriatric Medicine; Visit Provider Family Medicine Geriatric Medicine
DX: M79.89 Other specified soft tissue disorders (principal)
CPT/HCPCS: 93971

== ENCOUNTER 2022-07-31 15:00 | Outpatient (RCR) | payer MEDICARE, OTHER, SELFPAY ==
--- NOTE | 2022-06-05 18:51 | HP.PTEVAL_ITS ---
Patient's Visit Information MADINA CHOWDHURY is a 87 year old M referred to Physical Therapy by Dr. Jessee Shukla MD with a diagnosis of L TKA 05/20/22. Date of Evaluation: 06/05/22 Physical Therapist: Randy Velarde PT, ATC - Visit Plan Frequency: 2-3x /Week Duration: 4-6 Weeks Plan: L knee stretching and strengthening, PROM and mobs, core strengthening, balance and proprio, nustep, and HEP - Subjective DOS: 05/20/22. Pt reports he had a L TKA performed at that time. Pt reports he was in the TCU for 10 days where he had therapy which was very beneficial. Pt reports he has been having a tough time secondary to being very anemic since the surgery. Pt reports he was walking with a cane prior to surgery secondary to his L knee pain. Pt reports he would like to be able to ambulate without an assistive device. Pt reports he has been performing a HEP since the date of surgery. Pt reports he has difficulty with stair negotiation at this time. Pt has 2 steps into his house that he has to negotiate one step at a time. Pt reports occasional sleep difficulty secondary to L knee discomfort. 3/10 pain while sitting here at rest, 7/10 pain at worst (when he gets an occasional jabbing pain) - Pain L knee Pain Intensity (Out of 10): 3 Pain Intensity Range: 7 - Objective Neuro: B LE sensation is WNL to light touch. B achilles reflex= 2/3. ROM: L knee 0-27-90, R knee 0-10-105. MMT: R knee flex= 34, ext= 35 #F, L knee flex= 14, ext= 11 #F. Girth at joint line: L knee = 42 cm, R 40 cm. TU.63 - Balance/Special Test Scores Lower Extremity Functional Score: 10 - Goals Goal 1:: Decrease L knee pain x 50% to aid with sleep Goal Time Frame: 4-6 Weeks Goal 2:: Increase L knee ROM x 30 degrees to aid with IADL's Goal Time Frame: 4-6 Weeks Goal 3:: Increase L knee strength x 10#F to aid with stair negotiation Goal Time Frame: 4-6 Weeks Goal 4:: I with HEP Goal Time Frame: 4-6 Weeks - Rehabilitation Potential Physical Therapy Diagnosis: Pt has L knee pain, weakness, and limited ROM secondary to L TKA Rehabilitation Potential: Good - Anticipated Interventions Patient/Client Instruction: Educate patient on: Condition, Plan of Care For the Purpose of:: To improve self management Therapeutic Exercise to Include: Strength training, Endurance training, Balance training, Flexibilty training, Gait and locomotor training, Passive ROM, Active ROM, Dynamic Lumbar Stabilization For the Purpose of:: To decrease pain, To increase ROM, To improve muscle performance and motor function Cryotherapy (ice pack, ice massage): Yes For the Purpose of:: To decrease pain Thank you for the opportunity to evaluate your patient. For Medicare and Medicare HMO plans, please review the plan of care and approve it. It will need to be FAXED BACK to us at [phone] for Medicare purposes. For Medicare only, by signing this I certify the plan of care. Please let me know if there are questions or concerns regarding this plan of care. Physician Signature: Date:
--- NOTE | 2022-07-04 16:04 | HP.PTREVAL ---
Dr. Angel Luis Roger MD, It has been my pleasure to treat MADINA CHOWDHURY over the last 9 visits for L TKA 05/20/22. Please see the progress note below for an update on the physical therapy plan of care! Subjective: Not bad today Objective/Function: L knee pain: 3-7/10. L knee ROM: 0-17-110. L knee MMT: Flex= 27, ext= 31. L knee girth: 56 cm. Gait: Pt is able to ambulate 680 feet until feeling the need to sit down. Pt is progressing well toward Rx goals Plan Plan: L knee stretching and strengthening, PROM and mobs, core strengthening, balance and proprio, nustep, and HEP Balance/Gait/Functional tests - Balance/Special Test Scores Lower Extremity Functional Score: 17 Goals Goal 1:: Decrease L knee pain x 50% to aid with sleep Goal Time Frame: 4-6 Weeks Goal Progress: Progressing Goal 2:: Increase L knee ROM x 30 degrees to aid with IADL's Goal Time Frame: 4-6 Weeks Goal Progress: Progressing Goal 3:: Increase L knee strength x 10#F to aid with stair negotiation Goal Time Frame: 4-6 Weeks Goal Progress: Progressing Goal 4:: I with HEP Goal Time Frame: 4-6 Weeks Goal Progress: Progressing Goal 5:: Pt will be able to ambulate 1000' to aid with community ambulation Goal Time Frame: 4-6 Weeks Goal Progress: New goals Anticipated Interventions Patient/Client Instruction: Educate patient on: Condition, Plan of Care For the Purpose of:: To improve self management Therapeutic Exercise to Include: Strength training, Endurance training, Balance training, Flexibilty training, Gait and locomotor training, Passive ROM, Active ROM, Dynamic Lumbar Stabilization For the Purpose of:: To decrease pain, To increase ROM, To improve muscle performance and motor function Cryotherapy (ice pack, ice massage): Yes For the Purpose of:: To decrease pain Please do not hesitate to contact me at [phone] by phone or if you have questions or concerns regarding this new plan of care! Sincerely, Randy Velarde, PT, ATC
--- NOTE | 2022-07-31 16:06 | HP.PTDCSUM ---
It has been my pleasure to treat MADINA CHOWDHURY referred by Dr. Angel Luis Roger MD, with the diagnosis of L TKA 05/20/22 for a total of 16 visit(s). Discharge Date: Please see the following information for a summary of their discharge status. Subjective: Pain is quite low today. I am ready for discharge now. L knee Pain Intensity (Out of 10): 2 % Improvement: 75 Objective/Function: L knee pain is 2/10. L knee ROM: 0-10-113. L knee MMT: flex= 32, ext= 38 #F. Pt is able to ambulate 680 feet until needing to rest secondary to pain. Pt is now I with HEP Goal 1:: Decrease L knee pain x 50% to aid with sleep Goal Progress: Goal Met Goal 2:: Increase L knee ROM x 30 degrees to aid with IADL's Goal Progress: Goal Met Goal 3:: Increase L knee strength x 10#F to aid with stair negotiation Goal Progress: Goal Met Goal 4:: I with HEP Goal Progress: Goal Met Goal 5:: Pt will be able to ambulate 1000' to aid with community ambulation Goal Progress: Progressing Plan: DC to HEP If there are questions or concerns regarding this patient's physical therapy, please feel free to call me at [phone]. Thank you for the referral of this patient. Sincerely, Randy Velarde, PT, ATC Balance/Gait/Functional tests - Balance/Special Test Scores Lower Extremity Functional Score: 53
== END 2022-07-31 19:00 | disposition home or self-care (01) ==
LOC: PT 15:00
PROVIDERS: PCP Internal Medicine; Referring Provider Family Medicine Geriatric Medicine; Visit Provider Internal Medicine
DX: Z47.1 Aftercare following joint replacement surgery (principal); Z96.652 Presence of left artificial knee joint
CPT/HCPCS: 97110; 97140; 97161; 97164

== ENCOUNTER → 2022-11-05 | Outpatient (CLI) | payer MEDICARE, OTHER, SELFPAY ==
--- NOTE | 2022-11-05 16:32 | RAD_ITS ---
EXAM: XR LUMBOSACRAL SPINE, 4 OR 5 VIEWS CLINICAL INDICATION: PAIN TECHNIQUE: Frontal, lateral and bilateral oblique views of the lumbar spine. COMPARISON: No relevant prior studies available. FINDINGS: VERTEBRAE: Preserved vertebral body height. No fracture. No spondylolisthesis. Preservation of the normal lumbar lordosis. Extensive lumbar facet arthritis. DISC SPACES: Flowing osteophytes noted about the lower thoracic and lumbar disc spaces, fusing the disc spaces; the osteophytes are largest at the L5/S1 level. L2/3 and L3/4 disc spaces are mildly narrowed. Chondrocalcinosis noted within the L3/4 disc space. GASTROINTESTINAL TRACT: Unremarkable as visualized. Included bowel gas pattern is non-obstructive. OTHER: Cardiac pacemaker lead is partially visualized. Total right hip prosthesis in place. RAD/L/S Spine Min 4 Views IMPRESSION: Flowing osteophytes throughout the lower thoracic and lumbar disc spaces. Lumbar facet arthritis. No evidence of lumbar spinal fracture or spondylolisthesis. Pending Final Proof Editing
== END | disposition home or self-care (01) ==
LOC: RAD 16:27
PROVIDERS: PCP Internal Medicine; Referring Provider Anesthesiology Pain Medicine; Visit Provider Anesthesiology Pain Medicine
DX: M51.26 Other intervertebral disc displacement, lumbar region (principal); M51.27 Other intervertebral disc displacement, lumbosacral region
CPT/HCPCS: 72110

== ENCOUNTER 2023-04-16 08:54 | Outpatient (CLI) | payer MEDICARE, OTHER, SELFPAY ==
[2023-04-16] MEDS: 0.9% NaCl Peripheral Flush Adult/Peds IV (09:06)
[2023-04-16] MEDS: 0.9% Normal Saline (500mL Bag) 500 ML 15 ML IV (09:07)
[2023-04-16 09:22] VITALS: BP 118/52; PULSE 70; RESP 16; TEMP 36.7; O2SAT 98; BMI 30.2
--- NOTE | 2023-04-16 10:01 | NURSING ---
Blood irradiated status had to be verified w/ Dr Alexander and blood bank after blood was issued
[2023-04-16 10:15] VITALS: BP 152/66; PULSE 70; RESP 16; TEMP 36.1
[2023-04-16 11:15] VITALS: BP 142/76; PULSE 70; RESP 16; TEMP 36.6; O2SAT 99
[2023-04-16 12:22] VITALS: BP 132/70; PULSE 69; RESP 16; TEMP 36.7
== END 2023-04-16 08:55 | disposition home or self-care (01) ==
LOC: MEDOUTP 08:55
PROVIDERS: PCP Internal Medicine; Referring Provider Internal Medicine Hematology & Oncology; Visit Provider Internal Medicine Hematology & Oncology
DX: D46.20 Refractory anemia with excess of blasts, unspecified (principal)
CPT/HCPCS: 36430; 86850; 86900; 86901; 86920; 86922; J7040; P9040; A4216

== ENCOUNTER 2023-06-22 14:54 | Observation (INO) | payer MEDICARE, OTHER, SELFPAY ==
[2023-06-22] VITALS (7 sets, daily range): BP systolic 137–169; BP diastolic 59–80; PULSE 49–99; RESP 16; TEMP 36.2–36.7; O2SAT 97–100; BMI 31.6; BMI 30.7
--- NOTE | 2023-06-22 15:16 | RAD_ITS ---
STUDY: X-RAY CHEST REASON FOR EXAM: Male, 88 years old. pacemaker dysfunction check lead placement TECHNIQUE: AP portable COMPARISON: May 24, 2022 FINDINGS: The lungs are clear and expanded. There is no demonstrated pleural abnormality. Normal size heart. Normal mediastinum and robert. Normal visualized pulmonary arteries. Calcified aortic arch and descending thoracic aorta. Pacer noted on the left with electrodes in right atrium and ventricle. Normal visualized thoracic spine. Normal visualized ribs, clavicles, and shoulders. There is no demonstrated abnormality of the visualized soft tissue structures of the upper abdomen. No significant change since prior exam RAD/Chest 1 View (Portable) IMPRESSION: No acute cardiopulmonary pathology status post pacemaker placement Electronically Signed: Kehinde Andrews MD at 16:53 EST ,
--- NOTE | 2023-06-22 15:16 | EKG12_ITS ---
Test Reason : AM EKG Blood Pressure : / mmHG Vent. Rate : 070 BPM Atrial Rate : 023 BPM P-R Int : 000 ms QRS Dur : 148 ms QT Int : 464 ms P-R-T Axes : 000 -63 100 degrees QTc Int : 501 ms Ventricular-paced rhythm Abnormal ECG When compared with ECG of 22-JUN-2023 15:31, MANUAL COMPARISON REQUIRED, DATA IS UNCONFIRMED Confirmed by JUSTIN DONALD, CRISTOBAL ([id number]), story editor KENNETH LUJAN ([id number]) on 06/23/2023 7:48:28 AM Referred By: Confirmed By:CRISTOBAL ANDERSON MD
--- NOTE | 2023-06-22 15:17 | EX.ED.DYSGE1 ---
HPI History of Present Illness Chief Complaint: Chest Other Informant: patient and spouse/S.O. Narrative Narrative: 88-year-old male history of atrial fibrillation/flutter, complete heart block, hypertension, anemia status post cardiac pacemaker placement presenting to the emergency department out of concerns for pacemaker dysfunction. Patient states on Thursday he saw his oncologist/cargo broker Dr. Alexander. He was noted to be hypertensive and bradycardic in the 40s. An EKG was performed and was sent to cardiology. He states that he had his lisinopril increased and he was placed on Bumex. He states Over the past 2 to 3 weeks has had leg swelling that came up out of nowhere . He denies any significant chest pain or shortness of breath. He states at the visit his hemoglobin was stable and that he would receive a shot this week. He states that he has been urinating better but not necessarily more. He believes the Bumex has helped his leg swelling. Today his blood pressure was back up and his heart rate was again in the 40s. He denies any syncope or feeling any different when his heart rate is in the 40s. [facility] Medical History Alcohol use Ambulates with cane Anemia Atrial fibrillation Back pain Bilateral lower extremity edema BPH (benign prostatic hyperplasia) Cancer Cardiology follow-up encounter Complete heart block Debility Degenerative joint disease of right hip Diverticulosis Encephalopathy Essential (primary) hypertension Former smoker H/O cataract History of Mohs micrographic surgery for skin cancer History of ulceration Hypertension Left knee DJD Left knee pain Macrocytic anemia Nasal bleeding NSVT (nonsustained ventricular tachycardia) Obesity Osteoarthritis of left knee Pacemaker Paroxysmal atrial fibrillation Paroxysmal atrial flutter Persistent atrial fibrillation Syncope Wears glasses Home Medications ascorbic acid (vitamin C) 500 mg tablet 500 mg PO 1200 #0 tabs 05/28/22 [Rx Last Taken Unknown] ferrous sulfate 325 mg (65 mg iron) tablet (FeroSul) 325 mg PO DAILY@1200 30 days #30 tabs 05/28/22 [Rx Last Taken Unknown] hydrochlorothiazide 25 mg tablet 25 mg PO DAILY #0 tabs 05/28/22 [Rx Last Taken Unknown] lisinopril 10 mg tablet 10 mg PO DAILY #0 tabs 05/28/22 [Rx Last Taken Unknown] acetaminophen 500 mg tablet 1,000 mg PO Q6H 01/12/23 [History Last Taken Unknown] multivitamin 1 tab PO DAILY 06/19/22 [History Last Taken Unknown] amoxicillin 500 mg tablet 2,000 mg (4 x 500 mg) PO ONCE #4 tabs 11/07/22 [Rx Last Taken Unknown] antiarthritic combination no.2 900 mg tablet (glucosamine-chondroitin) 900 mg PO DAILY 12/23/22 [History Last Taken Unknown] apixaban 5 mg tablet (Eliquis) 5 mg PO BID #180 tabs 03/23/23 [Rx Last Taken Unknown] folic acid 1 mg tablet 1,000 mcg PO DAILY 04/16/23 [History Last Taken Unknown] zinc 50 mg capsule 50 mg PO DAILY 04/16/23 [History Last Taken Unknown] amoxicillin 500 mg tablet 1,000 mg (2 x 500 mg) PO ONCE #4 tabs 06/10/23 [Rx Last Taken Unknown] Allergy/AdvReac Type Severity Reaction Status Date / Time tree and shrub pollen Allergy Shortness Verified 06/22/23 14:56 of breath oxycodone AdvReac Hallucinati Verified 06/22/23 14:56 ons Family History Father CVA (cerebral vascular accident) Surgical History H/O foot surgery 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) History of removal of skin mole History of right hip replacement History of total hip arthroplasty History of total left knee replacement (05/20/22) History of total right hip arthroplasty History of total right hip arthroplasty S/P total knee arthroplasty Status post total left knee replacement Social History household members: spouse Smoking Status: Former smoker how long ago did patient quit smokin years ago alcohol intake: current alcohol intake frequency: 0-2 drinks per day substance use type: does not use caffeine: Yes Type: coffee Number of servings: 1 and tea Number of servings: 1 ROS ROS ED Constitutional Constitutional ED: Denies chills, fever(s) or weight loss Eyes Eyes: Denies change in vision or diplopia ENT ENT ED: Denies ear pain, rhinorrhea or sore throat Cardiovascular Cardiovascular: Denies chest pain, orthopnea, palpitations or racing heartbeat Respiratory/Chest Respiratory/Chest: Denies cough, dyspnea, dyspnea on exertion or orthopnea Gastrointestinal Gastrointestinal: Denies abdominal pain, diarrhea, nausea or vomiting Genitourinary Genitourinary ED: Denies dysuria, hematuria or urinary frequency Musculoskeletal Musculoskeletal: Reports other Details: Lower extremity edema ; Denies arthralgias or myalgias Integumentary Denies abscess or rash Neurologic Neurologic: Denies headache(s) or weakness Psychiatric Psychiatric: Denies anxiety, depression, suicidal ideation or suicidal thoughts Endocrine Endocrinology: Denies polydipsia, polyphagia or polyuria Allergic/Immunologic Allergic/Immunologic ED: Denies mouth swelling, tongue swelling or urticaria EXAM Physical Exam Const Vital Signs: 06/22/23 14:57 06/22/23 15:35 06/22/23 15:53 Temperature 97.1 F L Temperature Source Temporal Pulse Rate 49 L 72 Respiratory Rate 16 16 Blood Pressure 137/59 H 160/67 H Blood Pressure Mean 85 98 Pulse Ox 100 97 Oxygen Delivery Method Room Air Room Air Positive well nourished and well developed General Appearance ED: well developed HEENT Reports normocephalic, head/scalp atraumatic and moist mucous membranes Eyes PERRL and EOMs intact bilaterally Neck no lymphadenopathy, supple and no JVD Resp normal respiratory effort and clear to auscultation bilaterally Cardio regular rate, regular rhythm and no murmurs GI normal to inspection, nondistended, normoactive bowel sounds and non-tender Palpation: soft Back/Spine no CVA tenderness and normal ROM Extremity General Extremety ED: Yes edema; Negative for tenderness General Extremity: edema bilateral lower extremity Details: moderate Neuro oriented x3 and CN's II-XII intact bilaterally Sensorium / Orientation: alert Motor Exam: strength 5/5 throughout Psych mental status grossly normal Mood & Affect: Negative for depressed or tearful Skin no rashes or lesions noted and no wounds MDM MDM MDM Narrative Medical decision making narrative: I spoke with cardiology several times regarding this. Apparently there is a [employer] device problem that will need a battery change. At the time of this dictation he is pacing regularly at 70 bpm. Basic blood work showed a hemoglobin of 8.9. Normal troponin. Creatinine 1.30. My independent interpretation of the chest x-ray is no acute process. Leads appear intact. Patient has pacemaker pads placed out of precaution. Cardiology is asked that the patient not receive his Eliquis and to remain n.p.o. in preparation for battery change tomorrow. History & Record Review Discussion w/independent historian: Patient and Significant other Additional record(s) reviewed:: Prior inpatient record, Prior outpatient record, Prior ED visit and Prior labs Lab Data Attestation: I reviewed the patient's lab results. Labs: Laboratory Results - last 24 hr 06/22/23 15:30 WBC 7.4 RBC 2.15 L Hgb 8.9 L Hct 27.5 L MCV 127.9 H MCH 41.4 H MCHC 32.4 RDW Std Deviation 89.7 H RDW Coeff of Humza 18.6 H Plt Count 181 MPV 12.3 H Immature Gran % (Auto) 4.500 H Neut % (Auto) 42.5 L Lymph % (Auto) 18.8 L [place] % (Auto) 31.8 H Eos % (Auto) 0.8 Baso % (Auto) 1.6 H Absolute Neuts (auto) 3.2 Absolute Lymphs (auto) 1.39 Nucleated RBC % 0.5 PT 16.7 H INR 1.3 APTT 33.3 Sodium 142 Potassium 3.5 Chloride 106 Carbon Dioxide 30.0 Anion Gap 6 BUN 30 H Creatinine 1.30 Estim Creat Clear Calc 46.87 Est GFR (MDRD) Af Amer 67 Est GFR (MDRD) Non-Af 56 L BUN/Creatinine Ratio 23.1 H Glucose 119 H Calcium 8.7 Total Bilirubin 0.50 AST 28 ALT 34 Alkaline Phosphatase 186 H Troponin I High Sens 33 B-Natriuretic Peptide 360.7 H Total Protein 6.9 Albumin 3.2 Globulin 3.7 Albumin/Globulin Ratio 0.9 EKG Initial EKG: Attestation: I personally reviewed and interpreted this EKG as follows: Comments: Bradycardic rhythm at a rate of 53 bpm. PACs. Attempted pacemaker spikes with some capture possible underlying atrial flutter rhythm Management Discussion w/another healthcare provider: Hospitalist and Muck Operator (Cardiology) Discharge Plan Dx/Rx/DC Orders Clinical Impression: Paroxysmal atrial flutter, Anticoagulated, Essential (primary) hypertension, Bradycardia, Malfunction of cardiac pacemaker Disposition [facility] Psychiatrist Reflex Medical hold order details:: IF a medical hold is selected below, a suggested order for a MEDICAL HOLD will reflex upon signing the document. Next of kin: [place] law dictates a PRIORITY LIST for identifying legal decision-maker/legal next of kin in the following order (LNOK): 1st: The patient?s legal guardian, if any 2nd: The patient's spouse (if status is questionable, consult Risk Management) 3rd: The patient?s adult child(toño) (majority, if multiple children) 4th: The patient?s parents 5th: The patient?s adult siblings (majority, if multiple children siblings)
--- NOTE | 2023-06-22 15:59 | EKG12_ITS ---
Test Reason : PLACEMAKER PROBLEM Blood Pressure : / mmHG Vent. Rate : 053 BPM Atrial Rate : 053 BPM P-R Int : 268 ms QRS Dur : 124 ms QT Int : 434 ms P-R-T Axes : 093 037 254 degrees QTc Int : 407 ms Atrial fibrillation PVC's and Paced Rhythm Confirmed by JUSTIN DONALD, CRISTOBAL ([id number]), manager editorial KENNETH LUJAN ([id number]) on 06/24/2023 9:13:00 AM Referred By: Confirmed By:CRISTOBAL ANDERSON MD
[2023-06-22 16:05] LABS: Absolute Lymphocyte Count 1.39 X10^3/uL (0.83-4.51); Absolute Neutrophil Count 3.2 X10^3/uL (2.0-7.7); Basophil# 0.12 X10^3/uL; Basophil% 1.6 % (0-1); Eosinophil# 0.06 X10^3/uL; Eosinophils% 0.8 % (0-5); Hematocrit 27.5 % (40-54); Hemoglobin 8.9 g/dL (13.0-16.5); Lymphocyte # 1.39 X10^3/ul (0.83-4.51); Lymphocyte % 18.8 % (19-41); Mean Corp Hgb Conc 32.4 g/dL (32-36); Mean Corpuscular Hgb 41.4 pg (27.0-32.0); Mean Corpuscular Volume 127.9 fL (80-94); Mean Platelet Vol. 12.3 fl (6.2-12.0); Monocyte# 2.36 X10^3/uL; Monocyte% 31.8 % (0-10); NRBC Flagged by Analyzer 0.5 % (0-5); Neutrophil # 3.15 X10^3/uL (2.7-7.7); Neutrophil % 42.5 % (47-70); POSITIVE DIFFERENTIAL YES; POSITIVE MORPHOLOGY YES; Platelet Count 181 K/mm3 (150-450); RBC Distribution Width CV 18.6 % (11.6-14.6); RBC Distribution Width SD 89.7 fl (35.1-43.9); Red Blood Count 2.15 M/mm3 (4.6-6.2); White Blood Count 7.4 K/mm3 (4.4-11.0)
[2023-06-22 16:11] LABS: Differential Indicated SCAN CRITERIA MET
[2023-06-22 16:20] LABS: International Normalized Ratio 1.3; Prothrombin Time (Protime)PT. 16.7 SECONDS (11.7-14.9)
[2023-06-22 16:21] LABS: Partial Thromboplast Time 33.3 Seconds (24.1-36.2)
[2023-06-22 16:29] LABS: ALB/GLOB Ratio 0.9 RATIO (0.9-2.4); AST(SGOT) 28 U/L (15-37); Alanine Aminotransfer ALT/SGPT 34 U/L (16-61); Albumin, Serum 3.2 g/dL (3.2-5.0); Alkaline Phosphatase 186 U/L (45-117); Anion Gap 6 (5-15); BUN 30 mg/dL (7-18); BUN/Creat Ratio 23.1 RATIO (10-20); Calcium,Total 8.7 mg/dL (8.5-10.1); Chloride 106 mmol/L (98-107); EST Glomerular Filtration Rate 56 mL/min (>60); Est Glom Filt Rate - Afr Amer 67 mL/min (>60); Estimated Creatinine Clearance 46.87 ml/min; Globulin 3.7 g/dL (2.2-4.2); Glucose 119 mg/dL (74-106); Potassium 3.5 mmol/L (3.5-5.1); Protein, Total 6.9 g/dL (6.4-8.2); Sodium Level 142 mmol/L (136-145); Troponin-I HS 33 pg/mL (3.0-78.0)
[2023-06-22 16:36] LABS: BNP,B-Type NATRIURETIC PEPTIDE 360.7 pg/mL (0-100)
[2023-06-22 16:42] LABS: Anisocytosis 2+; Differential Comment SCANNED; Macrocytosis 2+
[2023-06-22 16:43] LABS: Microcytosis 1+; Ovalocyte RARE
--- NOTE | 2023-06-22 16:53 | HP.PCM.HOS_ITS ---
HPI - General General Date of Admission: 06/22/23 Date of Service: 06/22/23 Chief Complaint: Slow HR HPI Narrative MADINA CHOWDHURY, is a 88 M who presented to the emergency department at [facility] on 06/22/2023 with a chief complaint of bradycardia. Patient has a history of complete heart block and had a pacemaker placed by Dr. Dietrich several years ago. On Thursday he saw his oncologist/environmental service aide, Dr. Alexander and he was noted to be hypertensive and bradycardic with heart rates in the 40s. An EKG was performed and sent to cardiology. He was set up follow-up appointment to be seen tomorrow however heart rate was assessed at home and noted to be in the 40s. The patient stated that he does not feel any differently with his heart rate low however he has noted more swelling in his legs over the past 2 to 3 weeks. He stated that it really came out of nowhere. He denies any significant chest pain or shortness of breath. He was recently started on Bumex and does feel that this is helped his leg swelling overall but indicates they are still swollen beyond his baseline. Upon presentation, his heart rate was noted to be in the 40s and he was otherwise asymptomatic. Vital signs demonstrated temperature of 97.1, heart rate 49, blood pressure 137/59, respiratory to 16, oxygen saturation 100% on room air. CBC shows a normal white count with a stable hemoglobin of 8.9 and normal platelet count. Coags are unremarkable overall with slight elevation due to him being on apixaban at baseline. His chemistry overall is unremarkable. Troponin is normal at 33. BNP was elevated at 360.7. Patient's EKG shows inconsistency in his heart rate with intermittent pacing. Chest x-ray is unremarkable. This case was discussed several times with cardiology and evidently there is a problem with [employer] devices and he will need a battery change. He was being paced at the time of my evaluation however intermittently appears that he is not paced. Cardiology is asked that he be admitted and not receive his Eliquis and be n.p.o. after midnight in preparation for battery change. [facility] Medical History Alcohol use Ambulates with cane Anemia Atrial fibrillation Back pain Bilateral lower extremity edema BPH (benign prostatic hyperplasia) Cancer Cardiology follow-up encounter Complete heart block Debility Degenerative joint disease of right hip Diverticulosis Encephalopathy Essential (primary) hypertension Former smoker H/O cataract History of Mohs micrographic surgery for skin cancer History of ulceration Hypertension Left knee DJD Left knee pain Macrocytic anemia Nasal bleeding NSVT (nonsustained ventricular tachycardia) Obesity Osteoarthritis of left knee Pacemaker Paroxysmal atrial fibrillation Paroxysmal atrial flutter Persistent atrial fibrillation Syncope Wears glasses Home Medications ascorbic acid (vitamin C) 500 mg tablet 500 mg PO 1200 #0 tabs 05/28/22 [Rx Last Taken Unknown] ferrous sulfate 325 mg (65 mg iron) tablet (FeroSul) 325 mg PO DAILY@1200 30 days #30 tabs 05/28/22 [Rx Last Taken Unknown] hydrochlorothiazide 25 mg tablet 25 mg PO DAILY #0 tabs 05/28/22 [Rx Last Taken Unknown] lisinopril 10 mg tablet 10 mg PO DAILY #0 tabs 05/28/22 [Rx Last Taken Unknown] acetaminophen 500 mg tablet 1,000 mg PO Q6H 06/19/22 [History Last Taken Unknown] multivitamin 1 tab PO DAILY 06/19/22 [History Last Taken Unknown] amoxicillin 500 mg tablet 2,000 mg (4 x 500 mg) PO ONCE #4 tabs 11/07/22 [Rx Last Taken Unknown] antiarthritic combination no.2 900 mg tablet (glucosamine-chondroitin) 900 mg PO DAILY 12/23/22 [History Last Taken Unknown] apixaban 5 mg tablet (Eliquis) 5 mg PO BID #180 tabs 03/23/23 [Rx Last Taken Unknown] folic acid 1 mg tablet 1,000 mcg PO DAILY 04/16/23 [History Last Taken Unknown] zinc 50 mg capsule 50 mg PO DAILY 04/16/23 [History Last Taken Unknown] amoxicillin 500 mg tablet 1,000 mg (2 x 500 mg) PO ONCE #4 tabs 06/10/23 [Rx Last Taken Unknown] Allergy/AdvReac Type Severity Reaction Status Date / Time tree and shrub pollen Allergy Shortness Verified 06/22/23 14:56 of breath oxycodone AdvReac Hallucinati Verified 06/22/23 14:56 ons Family History Father CVA (cerebral vascular accident) Surgical History H/O foot surgery 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) History of removal of skin mole History of right hip replacement History of total hip arthroplasty History of total left knee replacement (05/20/22) History of total right hip arthroplasty History of total right hip arthroplasty S/P total knee arthroplasty Status post total left knee replacement Social History household members: spouse Smoking Status: Former smoker how long ago did patient quit smokin years ago alcohol intake: current alcohol intake frequency: 0-2 drinks per day substance use type: does not use caffeine: Yes Type: coffee Number of servings: 1 and tea Number of servings: 1 ROS Constitutional Constitutional: Denies anorexia, change in weight, chills, fatigue, fever(s), malaise, night sweats, weakness or other Eyes Eyes: Denies blurry vision, change in eye color, change in vision, discharge from eye(s), double vision, erythema, eye pain, loss of vision or other ENT HEENT: Denies abnormal hearing, dysphagia, ear pain, epistaxis, headache(s), hearing loss, nasal congestion, nasal discharge, post nasal drip, sinus pressure, sore throat or other Cardiovascular Cardiovascular: Reports dyspnea on exertion, edema and other Details: Bradycardia Respiratory/Chest Respiratory/Chest: Reports shortness of breath with exertion Gastrointestinal Gastrointestinal: Denies abdominal pain, coffee ground emesis, constipation, diarrhea, dyspepsia, hematemesis, hematochezia, loose stools, melena, nausea, vomiting or other Genitourinary Genitourinary: Denies burning urination, difficulty urinating, dysuria, hematuria, nocturia, urinary frequency, urinary hesitancy, urinary incontinence, urinary urgency or other Musculoskeletal Musculoskeletal: Denies arthralgias, back pain, joint pain, joint stiffness, joint swelling, myalgias, neck pain or other Neurologic Neurologic: Denies abnormal gait, abnormal speech, confusion, disequilibrium, dizziness, focal weakness, headache(s), numbness, paresthesias, seizure-like activity, seizures, syncope, tingling, tremor(s) or other Psychiatric Psychiatric: Denies anxiety, depression, homicidal ideation, suicidal ideation or other Endocrine Endocrinology: Denies change in body appearance, cold intolerance, excessive sweating, heat intolerance, polydipsia, polyuria or other Hematologic/Lymphatic Hematologic/Lymphatic: Denies anemia, easy bleeding, easy bruising, lymphadenopathy or other Allergic/Immunologic Allergic/Immunologic: Denies rhinitis, hives, eczemia, asthma or other Vital Signs Vital Signs Vital Signs: 06/22/23 14:57 06/22/23 15:35 06/22/23 15:53 Temperature 97.1 F L Temperature Source Temporal Pulse Rate 49 L 72 Respiratory Rate 16 16 Blood Pressure 137/59 H 160/67 H Blood Pressure Mean 85 98 Pulse Ox 100 97 Oxygen Delivery Method Room Air Room Air Weight Weight: 97.069 kg Body Mass Index (BMI) 31.6 Physical Exam Const alert, oriented x3, no apparent distress, average body habitus, healthy appearin g and well nourished Constitutional Narrative: Very pleasant, elderly, white male, sitting up in bed, at bedside, patient appears comfortable and nontoxic General Appearance: cooperative HEENT normocephalic, head/scalp atraumatic and moist oral mucous membranes HEENT Narrative: Mild hearing loss, Mallampati is 2, no thrush Eyes PERRL and EOMs intact bilaterally Eyes Narrative: No scleral icterus, conjunctiva are mildly pale bilaterally Neck no lymphadenopathy and supple Neck Narrative: Trachea midline, no thyroid enlargement Resp normal respiratory effort, no retractions, no use of accessory muscles and clear to auscultation bilaterally Auscultation: Negative for rales, rhonchi or wheezes Cardio regular rate, S1 normal heart sound, S2 normal heart sound, no rub, no gallops, no clicks and no JVD Cardio Narrative: Intermittent ectopy, 2 out of 6 systolic murmur loudest at right upper sternal border GI normal to inspection, nondistended, normoactive bowel sounds, soft to palpation and non-tender Extremity Extremity Narrative: 2+ bilateral lower extremity pitting edema from his feet to his mid tibial region, no cyanosis or clubbing Neuro oriented x3, moves all extremities and no focal motor deficits Speech: speech normal Psych affect normal Psych Narrative: Very pleasant, talkative, interacts appropriately Results Lab / Micro Data 06/22/23 15:30 06/22/23 15:30 Labs: Laboratory Results - last 24 hr 06/22/23 15:30: WBC 7.4, RBC 2.15 L, Hgb 8.9 L, Hct 27.5 L, MCV 127.9 H, MCH 41.4 H, MCHC 32.4, RDW Std Deviation 89.7 H, RDW Coeff of Humza 18.6 H, Plt Count 181, MPV 12.3 H, Immature Gran % (Auto) 4.500 H, Neut % (Auto) 42.5 L, Lymph % (Auto) 18.8 L, [place] % (Auto) 31.8 H, Eos % (Auto) 0.8, Baso % (Auto) 1.6 H, Absolute Neuts (auto) 3.2, Absolute Lymphs (auto) 1.39, Nucleated RBC % 0.5, Differential Comment SCANNED, Anisocytosis 2+, Microcytosis 1+, Macrocytosis 2+, Ovalocytes RARE, PT 16.7 H, INR 1.3, APTT 33.3, Sodium 142, Potassium 3.5, Chloride 106, Carbon Dioxide 30.0, Anion Gap 6, BUN 30 H, Creatinine 1.30, Estim Creat Clear Calc 46.87, Est GFR (MDRD) Af Amer 67, Est GFR (MDRD) Non-Af 56 L, BUN/Creatinine Ratio 23.1 H, Glucose 119 H, Calcium 8.7, Total Bilirubin 0.50, AST 28, ALT 34, Alkaline Phosphatase 186 H, Troponin I High Sens 33, B- Natriuretic Peptide 360.7 H, Total Protein 6.9, Albumin 3.2, Globulin 3.7, Albumin/Globulin Ratio 0.9 Assessment & Plan Assessment/Plan (1) Malfunction of cardiac pacemaker: (2) Bradycardia: (3) Anticoagulated: (4) Acute on chronic heart failure with preserved ejection fraction (HFpEF): PLAN: Plan Bradycardia secondary to malfunction of cardiac pacemaker -Patient with history of complete heart block -Pacemaker currently malfunctioning with intermittent heart rates in the 40s -N.p.o. after midnight -Hold apixaban -Check TSH -Admit to PCU -Cardiology consultation for battery replacement of pacemaker tomorrow Acute on chronic HFpEF -Patient with significant bilateral lower extremity edema -Suspect current exacerbation is related to intermittent malfunctioning of his pacemaker -Bumex 2 mg IV push twice daily -Lower extremity Rodger wrap's -Accurate I's and O's -Fluid direction to 1750 cc daily -Daily weights -Repeat BMP in a.m. Persistent atrial flutter/fibrillation with history of complete heart block -Hold apixaban for procedure tomorrow -Monitor on telemetry -Patient is paced with a BiV pacer Chronic anemia -Continue iron supplementation -Continue outpatient follow-up with hematology/oncology -Hemoglobin is stable -Repeat CBC in a.m. Hypertension -We will continue home medications once verified Osteoarthritis -Patient has had joint replacement -As needed Tylenol History of BPH with obstruction -Awaiting med reconciliation to be performed and we will restart any home medications that he takes DVT prophylaxis -SCDs -Chemoprophylaxis on hold due to procedure tomorrow -Anticipation reinitiation of apixaban tomorrow after procedure CODE STATUS -Full code is verified on admission Charges/Coding Visit Charges Inpatient E&M: 77104 Init Hosp L2
--- NOTE | 2023-06-22 17:09 | NURSING ---
PCU OBS ETIENNE BRADYCARDIA
[2023-06-22] MEDS: Bumetanide 1 MG/4 ML Vial 2 MG IV (21:10)
[2023-06-22] MEDS: 0.9% Saline Lock 10 ML Syringe IV (21:11)
[2023-06-23] VITALS (12 sets, daily range): BP systolic 125–158; BP diastolic 50–93; PULSE 48–72; RESP 14–18; TEMP 36.4–36.8; O2SAT 94–98
--- NOTE | 2023-06-23 05:55 | EKG12_ITS ---
Test Reason : CP Blood Pressure : / mmHG Vent. Rate : 084 BPM Atrial Rate : 000 BPM P-R Int : 000 ms QRS Dur : 136 ms QT Int : 444 ms P-R-T Axes : 000 074 260 degrees QTc Int : 524 ms Atrial fibrillation PVC's and Ventricular Pacing Confirmed by JUSTIN DONALD, CRISTOBAL ([id number]), publishing editor KENNETH LUJAN ([id number]) on 06/24/2023 9:13:25 AM Referred By: Confirmed By:CRISTOBAL ANDERSON MD
[2023-06-23 06:18] LABS: International Normalized Ratio 1.2; Prothrombin Time (Protime)PT. 15.4 SECONDS (11.7-14.9)
[2023-06-23 06:46] LABS: ALB/GLOB Ratio 0.9 RATIO (0.9-2.4); AST(SGOT) 31 U/L (15-37); Alanine Aminotransfer ALT/SGPT 36 U/L (16-61); Albumin, Serum 3.3 g/dL (3.2-5.0); Alkaline Phosphatase 147 U/L (45-117); Anion Gap 7 (5-15); BUN 29 mg/dL (7-18); BUN/Creat Ratio 22.1 RATIO (10-20); Chloride 105 mmol/L (98-107); Creatinine, Serum 1.31 mg/dL (0.70-1.30); EST Glomerular Filtration Rate 55 mL/min (>60); Est Glom Filt Rate - Afr Amer 67 mL/min (>60); Estimated Creatinine Clearance 45.93 ml/min; Globulin 3.8 g/dL (2.2-4.2); Glucose 102 mg/dL (74-106); Magnesium 1.9 mg/dL (1.6-2.6); Phosphorus 3.5 mg/dL (2.5-4.9); Potassium 3.6 mmol/L (3.5-5.1); Protein, Total 7.1 g/dL (6.4-8.2); Sodium Level 143 mmol/L (136-145)
[2023-06-23] MEDS: Lisinopril 10 MG Tablet PO (07:20)
--- NOTE | 2023-06-23 08:06 | CON.PCM.CA_ITS ---
Assessment & Plan Assessment/Plan (1) History of permanent cardiac pacemaker placement: PLAN: He does have a permanent pacemaker implanted which is at end-of-life replacement index on the pacemaker that is on alert by the company [employer]. Arrangements were made to change out this pacemaker later today. Risk benefits alternatives have been explained to the patient who understands and agrees to proceed. (2) Essential (primary) hypertension: PLAN: He does have a history of hypertension which is under good control at this time I would not recommend that we make any changes. (3) Persistent atrial fibrillation: PLAN: He does have a history of chronic persistent atrial fibrillation. He has been anticoagulated and this is being briefly interrupted for pacemaker generator change out. HPI Consult Data Date of Consult: 06/23/23 HPI Narrative HPI Narrative: MADINA CHOWDHURY, is a 88 M who presents with a history of permanent pacemaker implantation which is at end-of-life replacement index. 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 He has been following up in the heart group and was noted to be nearing end-of-life replacement index. He was asked to come to the emergency room because he was having intermittent periods of heart block and his pacemaker was interrogated and was noted to be at end-of-life. We arrange for him to be admitted for permanent pacemaker change out today. He otherwise has been asymptomatic. [facility] Medical History Alcohol use Ambulates with cane Anemia Atrial fibrillation Back pain Bilateral lower extremity edema BPH (benign prostatic hyperplasia) Cancer Cardiology follow-up encounter Complete heart block Debility Degenerative joint disease of right hip Diverticulosis Encephalopathy Essential (primary) hypertension Former smoker H/O cataract History of Mohs micrographic surgery for skin cancer History of ulceration Hypertension Left knee DJD Left knee pain Macrocytic anemia Nasal bleeding NSVT (nonsustained ventricular tachycardia) Obesity Osteoarthritis of left knee Pacemaker Paroxysmal atrial fibrillation Paroxysmal atrial flutter Persistent atrial fibrillation Syncope Wears glasses Home Medications ascorbic acid (vitamin C) 500 mg tablet 500 mg PO 1200 #0 tabs 05/28/22 [Rx Last Taken Unknown] ferrous sulfate 325 mg (65 mg iron) tablet (FeroSul) 325 mg PO DAILY@1200 30 days #30 tabs 05/28/22 [Rx Last Taken Unknown] hydrochlorothiazide 25 mg tablet 25 mg PO DAILY #0 tabs 05/28/22 [Rx Last Taken Unknown] lisinopril 10 mg tablet 10 mg PO DAILY #0 tabs 05/28/22 [Rx Last Taken Unknown] acetaminophen 500 mg tablet 1,000 mg PO Q6H 06/19/22 [History Last Taken Unknown] multivitamin 1 tab PO DAILY 06/19/22 [History Last Taken Unknown] antiarthritic combination no.2 900 mg tablet (glucosamine-chondroitin) 900 mg PO DAILY 12/23/22 [History Last Taken Unknown] apixaban 5 mg tablet (Eliquis) 5 mg PO BID #180 tabs 03/23/23 [Rx Last Taken Unknown] folic acid 1 mg tablet 1,000 mcg PO DAILY 04/16/23 [History Last Taken Unknown] bumetanide 0.5 mg tablet 0.5 mg PO DAILY 06/22/23 [History Last Taken Unknown] Allergy/AdvReac Type Severity Reaction Status Date / Time tree and shrub pollen Allergy Shortness Verified 06/22/23 14:56 of breath oxycodone AdvReac Hallucinati Verified 06/22/23 14:56 ons Family History Father CVA (cerebral vascular accident) Surgical History H/O foot surgery 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) History of removal of skin mole History of right hip replacement History of total hip arthroplasty History of total left knee replacement (05/20/22) History of total right hip arthroplasty History of total right hip arthroplasty S/P total knee arthroplasty Status post total left knee replacement Social History household members: spouse Smoking Status: Former smoker how long ago did patient quit smokin years ago alcohol intake: current alcohol intake frequency: 0-2 drinks per day substance use type: does not use caffeine: Yes Type: coffee Number of servings: 1 and tea Number of servings: 1 ROS Constitutional Constitutional: Denies fever(s) or weight loss Eyes Eyes: Reports systems reviewed and no addt'l complaints, except as documented ENT HEENT: Reports systems reviewed and no addt'l complaints, except as documented Cardiovascular Cardiovascular: Denies chest pain at rest, chest pain with activity, dyspnea at rest, dyspnea on exertion, edema, palpitations or paroxysmal nocturnal dyspnea Respiratory/Chest Respiratory/Chest: Denies dyspnea on exertion, productive cough, shortness of breath at rest or shortness of breath with exertion Gastrointestinal Gastrointestinal: Denies change in bowel habits, nausea, vomiting or weight changes Genitourinary Genitourinary: Denies difficulty urinating Musculoskeletal Musculoskeletal: Denies joint stiffness or muscle weakness Integumentary Integumentary: Denies lesions Neurologic Neurologic: Denies dizziness or syncope Psychiatric Psychiatric: Denies anxiety Endocrine Endocrinology: Denies excessive sweating or fatigue Hematologic/Lymphatic Hematologic/Lymphatic: Denies anemia Allergic/Immunologic Allergic/Immunologic: Denies seasonal rhinorrhea Physical Exam Const alert, oriented x3 and no apparent distress General Appearance: cooperative HEENT hearing grossly normal bilaterally Head and Scalp: atraumatic Eyes EOMs intact bilaterally Neck General: normal visual inspection Chest inspection of chest normal and palpation of chest normal Resp normal respiratory effort Auscultation: clear to auscultation bilaterally Cardio regular rate, regular rhythm, S1 normal heart sound and S2 normal heart sound Jugular Venous Distention: JVD GI normal to inspection, nondistended, normoactive bowel sounds Extremity normal capillary refill and no pedal edema Peripheral Pulses: Yes pulses 2+ throughout and femoral pulses present Skin no rashes or lesions noted Neuro oriented x3 and CN's II-XII intact bilaterally Psych Appearance: grossly normal and appropriate Risk Stratification Risk Stratification Applicable: No 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 Next of kin: [place] law dictates a PRIORITY LIST for identifying legal decision-maker/legal next of kin in the following order (LNOK): 1st: The patient?s legal guardian, if any 2nd: The patient's spouse (if status is questionable, consult Risk Management) 3rd: The patient?s adult child(toño) (majority, if multiple children) 4th: The patient?s parents 5th: The patient?s adult siblings (majority, if multiple children siblings) Objective Data Vital Signs: Vital Signs Temp Pulse Resp BP Pulse Ox O2 Del Method 98.0 F 48 L 16 154/54 H 98 Room Air 06/23/23 06:30 06/23/23 06:30 06/23/23 06:30 06/23/23 06:30 06/23/23 06:30 06/23/23 06:30 Oxygen Delivery Method Room Air Weight: 208 lb 5.389 oz Body Mass Index (BMI) 30.7 Intake & Output: Intake and Output for Last 24 Hours 06/21/23 06/22/23 06/23/23 23:59 23:59 23:59 Intake Total 0 / 0 Balance 0 / 0 Lab / Micro Data 06/22/23 15:30 06/23/23 05:40 Labs: Laboratory Results - last 24 hr 06/22/23 15:30: WBC 7.4, RBC 2.15 L, Hgb 8.9 L, Hct 27.5 L, MCV 127.9 H, MCH 41.4 H, MCHC 32.4, RDW Std Deviation 89.7 H, RDW Coeff of Humza 18.6 H, Plt Count 181, MPV 12.3 H, Immature Gran % (Auto) 4.500 H, Neut % (Auto) 42.5 L, Lymph % (Auto) 18.8 L, Mclennan % (Auto) 31.8 H, Eos % (Auto) 0.8, Baso % (Auto) 1.6 H, Absolute Neuts (auto) 3.2, Absolute Lymphs (auto) 1.39, Nucleated RBC % 0.5, Differential Comment SCANNED, Anisocytosis 2+, Microcytosis 1+, Macrocytosis 2+, Ovalocytes RARE, PT 16.7 H, INR 1.3, APTT 33.3, Sodium 142, Potassium 3.5, Chloride 106, Carbon Dioxide 30.0, Anion Gap 6, BUN 30 H, Creatinine 1.30, Estim Creat Clear Calc 46.87, Est GFR (MDRD) Af Amer 67, Est GFR (MDRD) Non-Af 56 L, BUN/Creatinine Ratio 23.1 H, Glucose 119 H, Calcium 8.7, Total Bilirubin 0.50, A ST 28, ALT 34, Alkaline Phosphatase 186 H, Troponin I High Sens 33, B- Natriuretic Peptide 360.7 H, Total Protein 6.9, Albumin 3.2, Globulin 3.7, Albumin/Globulin Ratio 0.9 06/23/23 05:40: PT 15.4 H, INR 1.2, Sodium 143, Potassium 3.6, Chloride 105, Carbon Dioxide 31.0, Anion Gap 7, BUN 29 H, Creatinine 1.31 H, Estim Creat Clear Calc 45.93, Est GFR (MDRD) Af Amer 67, Est GFR (MDRD) Non-Af 55 L, BUN/Creatinine Ratio 22.1 H, Glucose 102, Calcium 9.0, Phosphorus 3.5, Magnesium 1.9, Total Bilirubin 0.90, AST 31, ALT 36, Alkaline Phosphatase 147 H, Total Protein 7.1, Albumin 3.3, Globulin 3.8, Albumin/Globulin Ratio 0.9, TSH 0.50 Cardiology Labs/Tests 06/22/23 15:30: WBC 7.4, RBC 2.15 L, Hgb 8.9 L, Hct 27.5 L, MCV 127.9 H, MCH 41.4 H, MCHC 32.4, Plt Count 181, MPV 12.3 H, Immature Gran % (Auto) 4.500 H, Neut % (Auto) 42.5 L, Lymph % (Auto) 18.8 L, Mclennan % (Auto) 31.8 H, Eos % (Auto) 0.8, Baso % (Auto) 1.6 H, Absolute Neuts (auto) 3.2, Nucleated RBC % 0.5, PT 16.7 H, INR 1.3, APTT 33.3, Sodium 142, Potassium 3.5, Chloride 106, Carbon Dioxide 30.0, Anion Gap 6, BUN 30 H, Creatinine 1.30, Est GFR (MDRD) Af Amer 67, Est GFR (MDRD) Non-Af 56 L, BUN/Creatinine Ratio 23.1 H, Glucose 119 H, Calcium 8.7, Total Bilirubin 0.50, B-Natriuretic Peptide 360.7 H 06/23/23 05:40: PT 15.4 H, INR 1.2, Sodium 143, Potassium 3.6, Chloride 105, Carbon Dioxide 31.0, Anion Gap 7, BUN 29 H, Creatinine 1.31 H, Est GFR (MDRD) Af Amer 67, Est GFR (MDRD) Non-Af 55 L, BUN/Creatinine Ratio 22.1 H, Glucose 102, Calcium 9.0, Phosphorus 3.5, Magnesium 1.9, Total Bilirubin 0.90 Rhythm: EKG: ECHO: Stress Test: Cardiac Cath: PCI: CT Surgery: Holter monitor: EPS: PPM: CXR: Chest CT Scan: Radiography Diagnostic Testing: Radiology Impression Chest X-Ray 06/22/23 15:16 IMPRESSION: No acute cardiopulmonary pathology status post pacemaker placement Electronically Signed: Kehinde Andrews MD at 16:53 EST Reading Location ID and State: [facility] / [place] Tel , Service support ,
[2023-06-23 09:19] LABS: Bedside Glucose 101 mg/dL (74-106)
--- NOTE | 2023-06-23 11:22 | CL.IE_ITS ---
Patient: MADINA CHOWDHURY Study Date: 06/23/2023 Performing: Amador Dietrich MD : [id number] Age: 88 Gender: male PROCEDURES PERFORMED [id number])BATTERY REMOVAL+REPLACEMENT PACER-DUAL LEAD INDICATIONS End-of-life replacement indicator PROCEDURE DETAILS The patient was brought to the Catheterization Lab in the postabsorptive nonsedated state. Informed consent was obtained prior to the procedure. Local anesthetic was given subcutaneously to the left upper chest area with Lidocaine 2%. Incision was made to the left upper chest. PPM generator was removed. PPM generator was attached to the lead(s) and inserted into the pocket. Device pocket was irrigated with antibiotic. Subcutaneous closure was completed with 3-0 Vicryl. Skin closure was completed with 4-0 Vicryl. Steri-strips applied to Lt chest area. The patient tolerated the procedure well. 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 Ancef 2 Gm IV @ 06/23/2023 10:16:21 Signed By Amador Dietrich MD On 06/23/2023 11:21:36 Amador Dietrich MD
[2023-06-23] MEDS: Ferrous Sulfate 325 MG Tablet PO (12:09)
[2023-06-23] MEDS: Multivitamins,Therapeutic Tablet 1 TABLET PO (12:09)
[2023-06-23] MEDS: Folic Acid 1 MG Tablet PO (12:10)
[2023-06-23] MEDS: Ascorbic Acid 500 MG Tablet PO (12:10)
--- NOTE | 2023-06-23 12:23 | EKG12_ITS ---
Test Reason : Blood Pressure : / mmHG Vent. Rate : 080 BPM Atrial Rate : 000 BPM P-R Int : 000 ms QRS Dur : 144 ms QT Int : 476 ms P-R-T Axes : 000 077 265 degrees QTc Int : 548 ms ATRIAL FIBRILLATION WITH PACED VENTRICULAR BEATS with frequent ventricular-paced complexes and Premature supraventricular complexes and with occasiona l Premature ventricular complexes Left bundle branch block Abnormal ECG When compared with ECG of 23-JUN-2023 05:27, Premature ventricular complexes are now Present Premature supraventricular complexes are now Present Vent. rate has increased BY 10 BPM Confirmed by JUSTIN DONALD, CRISTOBAL ([id number]), publishing editor MIKAL DEWEY ([id number]) on 06/25/2023 7:11:29 AM Referred By: ETIENNE Confirmed By:CRISTOBAL ANDERSON MD
--- NOTE | 2023-06-23 12:25 | DCINST_ITS ---
Discharge Instructions Diet Discharge Diet: No restrictions Activity Discharge Activity: Return to Normal Activity Weight Bearing Status: Full weight bearing Follow Up Care Test Results: Test results from this visit will be discussed in further detail at your follow- up appointment, if applicable. Discharge Plan Admission Admit Date/Time: 06/22/23 16:48 Primary Reason for Your Visit: pacer generator change Attending Provider: John Mckay Primary Care Provider: Angel Luis Roger Consulting Providers: Amador Dietrich; Kristine Landers Instructions Additional Instructions / Restrictions: Please follow pacemaker instructions Discharge Orders/Prescriptions Prescriptions: Continued acetaminophen 500 mg tablet 1,000 mg PO Q6H multivitamin Tablet 1 tab PO DAILY glucosamine-chondroitin 900 mg tablet 900 mg PO DAILY ascorbic acid (vitamin C) 500 mg Tablet 500 mg PO 1200 Qty: 0 0RF ferrous sulfate [FeroSul] 325 mg (65 mg iron) Tablet 325 mg PO DAILY@1200 30 Days Qty: 30 0RF lisinopril 10 mg Tablet 10 mg PO DAILY Qty: 0 0RF hydrochlorothiazide 25 mg Tablet 25 mg PO DAILY Qty: 0 0RF folic acid 1 mg tablet 1,000 mcg PO DAILY bumetanide 0.5 mg tablet 0.5 mg PO DAILY Patient Comments: TAKE 1 TABLET BY MOUTH EVERY DAY Eliquis 5 mg tablet 5 mg PO BID Qty: 180 3RF Rx Instructions: resume tomorrow night Referrals / Follow Up: Angel Luis Roger MD [Primary Care Provider] - Amador Dietrich MD [Med Staff - Active Staff] - See Referral Note (The office should call you to schedule a follow-up appointment) Disposition Disposition (needs filled in before D/C Order can be placed): Home, Self Care
--- NOTE | 2023-06-23 13:25 | CASEMGMT ---
Patient has order for discharge. RN CM in to discuss needs at discharge, at bedside. Patient and deny needs or help at discharge. Patient and had no further questions or concerns at this time.
--- NOTE | 2023-06-23 13:36 | PHA.DC.MR.R ---
Pharmacy [place] Med Reconciliation Pharmacy Service has performed discharge medication reconciliation for this patient. The patient's discharge medication list was reviewed for discrepancies and discrepancies were resolved. Medications at Discharge Home Medications ascorbic acid (vitamin C) 500 mg tablet 500 mg PO 1200 #0 tabs 05/28/22 ferrous sulfate 325 mg (65 mg iron) tablet (FeroSul) 325 mg PO DAILY@1200 30 days #30 tabs 05/28/22 hydrochlorothiazide 25 mg tablet 25 mg PO DAILY #0 tabs 05/28/22 lisinopril 10 mg tablet 10 mg PO DAILY #0 tabs 05/28/22 acetaminophen 500 mg tablet 1,000 mg PO Q6H 06/19/22 multivitamin 1 tab PO DAILY 06/19/22 antiarthritic combination no.2 900 mg tablet (glucosamine-chondroitin) 900 mg PO DAILY 12/23/22 folic acid 1 mg tablet 1,000 mcg PO DAILY 04/16/23 bumetanide 0.5 mg tablet 0.5 mg PO DAILY 06/22/23 apixaban 5 mg tablet (Eliquis) 5 mg PO BID #180 tabs 06/23/23
--- NOTE | 2023-06-23 13:59 | CHAPLAIN ---
Type of Pastoral Visit _x__ Initial Visit ___ Follow-up Visit ___ On-call Visit ___ General Patient Visit ___ Spiritual Assessment ___ Family Conference ___ Bereavement ___ Rapid Response ___ Code Blue ___ Other (describe below) Pastoral Care Referral From _x__ Patient ___ Family ___ Nurse ___ Physician ___ Metrology Specialist ___ [employer] Medical Sergeant ___ Other (describe below) Sacrament/Intervention _x__ Active listening ___ Anointing ___ Jainism ___ Bereavement ___ Communion ___ Cindy exploration ___ ___ Life review ___ Prayer ___ Reconciliation ___ Sacrament of Sick ___ Supportive presence ___ Wedding ___ Other (describe below) Pastoral Comments patient was not available but the spouse was in the room and willing to talk; pt is going to be discharged and all has gone well; spouse indicates that there are no further needs at this time
== END 2023-06-23 12:33 | disposition home or self-care (01) ==
LOC: ED 16:54 → PCU 18:09
PROVIDERS: Admitting Provider Internal Medicine; Emergency Provider Emergency Medicine; PCP Internal Medicine; Visit Provider Internal Medicine
DX: Z45.010 Encounter for checking and testing of cardiac pacemaker pulse generator [battery] (principal); I11.0 Hypertensive heart disease with heart failure; I50.33 Acute on chronic diastolic (congestive) heart failure; I48.19 Other persistent atrial fibrillation; I48.92 Unspecified atrial flutter; I44.2 Atrioventricular block, complete; Z79.01 Long term (current) use of anticoagulants; Z87.891 Personal history of nicotine dependence; Z79.899 Other long term (current) drug therapy; N40.1 Benign prostatic hyperplasia with lower urinary tract symptoms; N13.8 Other obstructive and reflux uropathy; M19.90 Unspecified osteoarthritis, unspecified site
CPT/HCPCS: 33228; 36415; 71045; 80053; 82962; 83735; 83880; 84100; 84443; 84484; 85025; 85610; 85730; 93005; 94668; 99152; 99153; 99221; 99285; J7040; J7050; A4216; G0378

== ENCOUNTER → 2023-08-21 | Outpatient (CLI) | payer MEDICARE, OTHER, SELFPAY ==
[2023-08-21 15:39] LABS: Bacteria 0 SEEN /hpf (None Seen); Mucous, Urine 0 SEEN /hpf (<or=2+); Red Blood Cells-Urine 0 SEEN /hpf (0-5); Squamous Epithelial Cells - UA 0 SEEN /hpf (0-5); White Blood Cells 0 SEEN /hpf (0-5)
[2023-08-21 16:31] LABS: Color, Urine Yellow (Yellow); Glucose, Dipstick Normal (Normal); Ketone-Dipstick 5 mg/dl (Negative); Leukocyte Esterase-Dipstick Negative /ul (Negative); Nitrite-Dipstick Negative (Negative); Occult Blood-Urine Negative /ul (Negative); Protein-Dipstick 30 mg/dl (Negative); Urine Bilirubin Dipstick Negative (Negative); Urine Clarity Clear (Clear); Urine Urobilinogen Normal (Normal)
== END | disposition home or self-care (01) ==
LOC: LAB 15:23
PROVIDERS: PCP Internal Medicine; Referring Provider Physician Assistant Medical; Visit Provider Physician Assistant Medical
DX: R30.9 Painful micturition, unspecified (principal)
CPT/HCPCS: 81001; 87086

== ENCOUNTER 2023-09-02 10:56 | Outpatient (CLI) | payer MEDICARE, OTHER, SELFPAY ==
[2023-09-02] MEDS: 0.9% NaCl Peripheral Flush Adult/Peds IV (11:14)
[2023-09-02] MEDS: 0.9% Normal Saline (500mL Bag) 500 ML 15 ML IV (11:14)
[2023-09-02 11:17] VITALS: BP 154/65; PULSE 70; RESP 16; TEMP 36.6; O2SAT 95; BMI 29.9
[2023-09-02 11:46] VITALS: BP 133/66; PULSE 72; RESP 16; TEMP 36.5; O2SAT 98
[2023-09-02 12:49] VITALS: BP 144/63; PULSE 69; RESP 16; TEMP 36.6; O2SAT 98
[2023-09-02 13:22] VITALS: BP 141/65; PULSE 70; RESP 16; TEMP 36.6; O2SAT 98
== END 2023-09-02 10:57 | disposition home or self-care (01) ==
LOC: MEDOUTP 10:58
PROVIDERS: PCP Internal Medicine; Referring Provider Internal Medicine Hematology & Oncology; Visit Provider Internal Medicine Hematology & Oncology
DX: Z51.89 Encounter for other specified aftercare (principal); D53.9 Nutritional anemia, unspecified
CPT/HCPCS: 36430; 86850; 86900; 86901; 86920; 86922; J7040; P9016; A4216

== ENCOUNTER → 2023-09-21 | Outpatient (CLI) | payer MEDICARE, OTHER, SELFPAY ==
--- NOTE | 2023-09-21 13:57 | ECHOCS_ITS ---
Reason For Study: COMPLETE HEART BLOCK Procedure This was a 2D Doppler, Color Flow transthoracic echocardiogram. The study was technically difficult. Contrast injection was performed. Exam performed in department. Left Ventricle Normal LV size. Left ventricular systolic function is normal. The estimated ejection fraction is 55 %. No regional wall motion abnormalities noted. Right Ventricle Normal RV size. Normal systolic function. Atria The left atrium is mildly enlarged. Normal right atrium. Tricuspid Valve Normal tricuspid valve. Mild tricuspid valve insufficiency. Pulmonary artery systolic pressure is 24 mmHg. Pulmonic Valve The pulmonic valve is not well visualized. Great Vessels Normal aortic root. The pulmonary artery is normal size. Normal inferior vena cava. Pericardium/Pleural No pericardial effusion. Medication 22 gauge I.V. with prn adaptor inserted into right arm. Diluted definity 2ml given slow IV push to enhance endocardial definition. MMode/2D Measurements & Calculations LVIDd: 4.8 cm IVSd: 1.2 cm LVOT diam: 2.0 cm LVIDs: 3.0 cm LVPWd: 1.0 cm LVOT area: 3.0 cm2 RVDd: 4.4 cm FS: 38.3 % Ao root diam: 3.6 cm LAV(MOD-bp): 68.4 ml LVAd ap4: 38.7 cm2 LAV(MOD-bp) Indexed: 32.5 ml/m2 LVLd ap4: 9.0 cm LAV(MOD-sp2): 59.3 ml EDV(MOD-sp4): 136.7 ml LAV(MOD-sp4): 72.6 ml EDV(sp4-el): 140.9 ml LVAs ap4: 25.3 cm2 LVLs ap4: 8.0 cm ESV(MOD-sp4): 66.1 ml ESV(sp4-el): 68.0 ml EF(MOD-sp4): 51.6 % EF(sp4-el): 51.7 % SV(MOD-sp4): 70.6 ml SV(MOD-sp2): 59.2 ml LVAd ap2: 38.5 cm2 LVLd ap2: 9.3 cm EDV(MOD-sp2): 131.7 ml EDV(sp2-el): 135.1 ml LVAs ap2: 26.4 cm2 LVLs ap2: 8.0 cm ESV(MOD-sp2): 72.5 ml ESV(sp2-el): 73.9 ml EF(MOD-sp2): 45.0 % SV(sp4-el): 72.8 ml LA A4 area: 23.6 cm2 LA dimension(2D): 4.4 cm TAPSE: 1.8 cm RA A4 area: 20.7 cm2 Time Measurements MV dec time: 0.24 sec Doppler Measurements & Calculations MV E max geo: 84.1 cm/sec Lat Peak E' Geo: 8.1 cm/sec Med Peak E' Geo: 7.6 cm/sec E/E' lat: 10.4 E/E' med: 11.1 Ao V2 max: 121.7 cm/sec LV V1 max: 79.5 cm/sec SV(LVOT): 51.9 ml Ao max P.9 mmHg LV V1 max P.5 mmHg Ao V2 mean: 87.1 cm/sec LV V1 mean P.7 mmHg Ao mean P.3 mmHg LV V1 mean: 63.3 cm/sec Ao V2 VTI: 23.9 cm LV V1 VTI: 17.3 cm AV (velocity ratio): 0.73 RUY(I,D): 2.2 cm2 RUY(V,D): 2.0 cm2 PA V2 max: 91.4 cm/sec TR max geo: 227.6 cm/sec PA max PG (full): 2.3 mmHg TR max P.7 mmHg ECHO/Echo Complete W/ Contrast Interpretation Summary Normal LV size. Left ventricular systolic function is normal. The estimated ejection fraction is 55 %. The left atrium is mildly enlarged. Contrast injection was performed. Ordering Physician: Marlin Cornelius Referring Physician: Angel Luis Roger M.D. Performed By: Sue Esquivel RDCS
== END | disposition home or self-care (01) ==
LOC: CVS 13:55
PROVIDERS: PCP Internal Medicine; Referring Provider Physician Assistant Medical; Visit Provider Physician Assistant Medical
DX: I44.2 Atrioventricular block, complete (principal)
CPT/HCPCS: 93306; Q9957; A4216; C8929

== ENCOUNTER 2023-10-01 09:16 | Outpatient (CLI) | payer MEDICARE, OTHER, SELFPAY ==
[2023-10-01] MEDS: 0.9% NaCl Peripheral Flush Adult/Peds IV (09:31)
[2023-10-01] MEDS: 0.9% Normal Saline (500mL Bag) 500 ML 15 ML IV (09:39)
[2023-10-01 09:40] VITALS: BP 112/66; PULSE 69; RESP 16; TEMP 36.1; O2SAT 99
[2023-10-01 10:01] VITALS: BP 119/54; PULSE 74; RESP 16; TEMP 36.2; O2SAT 97
[2023-10-01 11:01] VITALS: BP 121/60; PULSE 76; RESP 16; TEMP 36.2; O2SAT 98
== END 2023-10-01 09:17 | disposition home or self-care (01) ==
LOC: MEDOUTP 09:17
PROVIDERS: PCP Internal Medicine; Referring Provider Internal Medicine Hematology & Oncology; Visit Provider Internal Medicine Hematology & Oncology
DX: D53.9 Nutritional anemia, unspecified (principal)
CPT/HCPCS: 36430; 86850; 86900; 86901; 86920; 86922; J7040; P9016; A4216

== ENCOUNTER 2023-10-09 08:03 | Outpatient (CLI) | payer MEDICARE, OTHER, SELFPAY ==
[2023-10-09 08:24] VITALS: BP 131/90; PULSE 68; RESP 16; TEMP 36.3; O2SAT 98; BMI 31.1
[2023-10-09 09:06] VITALS: BP 134/67; PULSE 70; RESP 16; TEMP 36.4; O2SAT 99
[2023-10-09 10:06] VITALS: BP 153/70; PULSE 70; RESP 16; TEMP 36.3; O2SAT 99
== END 2023-10-09 08:04 | disposition home or self-care (01) ==
LOC: MEDOUTP 08:04
PROVIDERS: PCP Internal Medicine; Referring Provider Internal Medicine Hematology & Oncology; Visit Provider Internal Medicine Hematology & Oncology
DX: C93.10 Chronic myelomonocytic leukemia not having achieved remission (principal); D53.9 Nutritional anemia, unspecified
CPT/HCPCS: 36430; 86850; 86900; 86901; 86920; 86922; J7040; P9016; A4216

== ENCOUNTER 2023-10-23 08:21 | Outpatient (CLI) | payer MEDICARE, OTHER, SELFPAY ==
[2023-10-23 08:44] VITALS: BP 101/55; PULSE 75; RESP 16; TEMP 36.2; O2SAT 97; BMI 30.7
[2023-10-23 09:19] VITALS: BP 97/50; PULSE 70; RESP 16; TEMP 36.2; O2SAT 95
[2023-10-23 10:19] VITALS: BP 126/73; PULSE 71; RESP 16; TEMP 36.3; O2SAT 99
[2023-10-23 11:01] VITALS: BP 127/76; PULSE 70; RESP 16; TEMP 36.4; O2SAT 99
== END 2023-10-23 23:59 | disposition home or self-care (01) ==
LOC: MEDOUTP 08:21
PROVIDERS: PCP Internal Medicine; Referring Provider Internal Medicine Hematology & Oncology; Visit Provider Internal Medicine Hematology & Oncology
DX: D53.9 Nutritional anemia, unspecified (principal)
CPT/HCPCS: 36430; 86850; 86900; 86901; 86920; 86922; J7040; P9016; A4216

== ENCOUNTER 2023-11-04 07:37 | Outpatient (CLI) | payer MEDICARE, OTHER, SELFPAY ==
[2023-11-04 10:39] VITALS: BP 128/57; PULSE 70; RESP 16; TEMP 36.1; O2SAT 98; BMI 30.4
[2023-11-04] MEDS: 0.9% Normal Saline (500mL Bag) 500 ML 15 ML IV (10:42)
[2023-11-04] MEDS: 0.9% NaCl Peripheral Flush Adult/Peds IV (10:42)
[2023-11-04 11:05] VITALS: BP 103/52; PULSE 69; RESP 16; TEMP 36; O2SAT 98
[2023-11-04 12:05] VITALS: BP 139/64; PULSE 69; RESP 16; TEMP 36; O2SAT 98
== END 2023-11-04 23:59 | disposition home or self-care (01) ==
LOC: MEDOUTP 07:37
PROVIDERS: PCP Internal Medicine; Referring Provider Specialist; Visit Provider Specialist
DX: D53.9 Nutritional anemia, unspecified (principal)
CPT/HCPCS: 96360; 96361; 36430; 86850; 86900; 86901; 86920; P9016; A4216

== ENCOUNTER 2023-11-17 12:21 | Outpatient (CLI) | payer MEDICARE, OTHER, SELFPAY ==
[2023-11-17 12:42] VITALS: BP 113/46; PULSE 70; RESP 16; TEMP 36.6; O2SAT 96
[2023-11-17 13:13] VITALS: BP 110/50; PULSE 70; RESP 16; TEMP 36.3; O2SAT 96
[2023-11-17 14:22] VITALS: BP 129/62; PULSE 70; RESP 16; TEMP 36.4; O2SAT 100
[2023-11-17 15:15] VITALS: BP 131/65; PULSE 65; RESP 16; TEMP 36.3; O2SAT 98
== END 2023-11-17 23:59 | disposition home or self-care (01) ==
LOC: MEDOUTP 12:22
PROVIDERS: PCP Internal Medicine; Referring Provider Internal Medicine Hematology & Oncology; Visit Provider Internal Medicine Hematology & Oncology
DX: D53.9 Nutritional anemia, unspecified (principal)
CPT/HCPCS: 36430; 86850; 86900; 86901; 86920; 86922; J7040; P9016; A4216

== ENCOUNTER 2024-12-07 15:19 | Emergency (ER) | payer MEDICARE, OTHER, SELFPAY ==
[2024-12-07 15:19] VITALS: BP 128/54; PULSE 70; RESP 16; TEMP 36; O2SAT 98; BMI 25.7
[2024-12-07] MEDS: 0.9% Normal Saline (500mL Bag) 500 ML 1000 ML IV (16:54)
[2024-12-07 17:12] LABS: Hematocrit 32.6 % (40-54); Hemoglobin 10.9 g/dL (13.0-16.5); Mean Corp Hgb Conc 33.4 g/dL (32-36); Mean Corpuscular Volume 100.9 fL (80-94); POSITIVE COUNT YES; RBC Distribution Width CV 17.0 % (11.6-14.6); RBC Distribution Width SD 63.0 fl (35.1-43.9); Red Blood Count 3.23 M/mm3 (4.6-6.2); White Blood Count 3.2 K/mm3 (4.4-11.0)
[2024-12-07 17:19] VITALS: BP 120/54; PULSE 61; RESP 22; O2SAT 97
[2024-12-07 17:40] LABS: AST(SGOT) 24 U/L (<=37); Alanine Aminotransfer ALT/SGPT 23 U/L (<=46); Albumin, Serum 3.9 g/dL (3.4-4.8); Alkaline Phosphatase 87 U/L (40-129); Anion Gap 10 (5-15); BUN 21 mg/dL (4-19); BUN/Creat Ratio 24.0 RATIO (10-20); Calcium,Total 9.6 mg/dL (7.6-11.0); Carbon Dioxide 29.5 mmol/L (21.0-32.0); Chloride 101 mmol/L (98-108); Estimated Creatinine Clearance 58.48 ml/min (50-250); Globulin 2.5 g/dL (2.2-4.2); Glucose 110 mg/dL (70-99); Lipase 22 U/L (13-75); Potassium 4.0 mmol/L (3.3-5.1)
[2024-12-07 19:00] VITALS: BP 163/82; PULSE 76; RESP 18; O2SAT 97
[2024-12-07 19:48] LABS: Platelet Count 17 K/mm3 (150-450)
[2024-12-07 19:50] LABS: Mean Platelet Vol. 13.3 fl (6.2-12.0); Scan Indicated on CBC? Y/N YES- FLAGS NOTED
[2024-12-07 21:00] VITALS: BP 163/87; PULSE 77; RESP 15; O2SAT 97
[2024-12-07] MEDS: 0.9% Normal Saline (1000mL) 1,000 ML 100 ML IV (21:03)
[2024-12-07 21:05] LABS: Prothrombin Time (Protime)PT. 14.1 SECONDS (11.7-14.9)
[2024-12-07 23:00] VITALS: BP 160/83; PULSE 75; RESP 16; O2SAT 98
[2024-12-08 01:00] VITALS: BP 136/75; PULSE 71; RESP 14; O2SAT 98
[2024-12-08 01:06] VITALS: BP 136/72; PULSE 71; RESP 16; TEMP 36.8; O2SAT 97
== END 2024-12-08 02:45 | disposition short-term general hospital (02) ==
PROVIDERS: Emergency Provider Emergency Medicine; PCP Internal Medicine; Referring Provider Emergency Medicine; Visit Provider Emergency Medicine
DX: R13.10 Dysphagia, unspecified (principal); C93.10 Chronic myelomonocytic leukemia not having achieved remission; E86.0 Dehydration; Z87.891 Personal history of nicotine dependence; D69.6 Thrombocytopenia, unspecified; I10 Essential (primary) hypertension; Z95.0 Presence of cardiac pacemaker
CPT/HCPCS: 71260; 74177; 80053; 83690; 85027; 85610; 93005; 96361; 96374; 99285; Q9967; A4216; J2405

== ENCOUNTER 2025-01-24 11:31 | Outpatient (CLI) | payer MEDICARE, OTHER, SELFPAY ==
[2025-01-24 11:52] VITALS: BP 106/47; PULSE 70; RESP 16; TEMP 36; O2SAT 99
[2025-01-24] MEDS: 0.9% NaCl Peripheral Flush Adult IV (12:09)
[2025-01-24 12:43] VITALS: BP 97/43; PULSE 70; RESP 16; TEMP 36.2; O2SAT 98
[2025-01-24 13:36] VITALS: BP 110/52; PULSE 71; RESP 16; TEMP 36.2; O2SAT 98
[2025-01-24 14:11] VITALS: BP 116/50; PULSE 70; RESP 16; TEMP 36.2; O2SAT 100
== END 2025-01-24 23:59 | disposition home or self-care (01) ==
LOC: MEDOUTP 11:31
PROVIDERS: PCP Internal Medicine; Referring Provider Internal Medicine Hematology & Oncology; Visit Provider Internal Medicine Hematology & Oncology
DX: D53.9 Nutritional anemia, unspecified (principal)
CPT/HCPCS: 36430; 86850; 86900; 86901; P9016; A4216

== ENCOUNTER 2025-02-01 06:10 | Emergency (ER) | payer MEDICARE, OTHER, SELFPAY ==
[2025-02-01] VITALS (13 sets, daily range): BP systolic 70–109; BP diastolic 34–53; PULSE 70–78; RESP 16–25; TEMP 36.3–36.5; O2SAT 81–100; BMI 25.3
--- NOTE | 2025-02-01 06:21 | CT_ITS ---
EXAM: NONCONTRAST CT SCAN OF THE HEAD CLINICAL HISTORY: Trauma COMPARISON: None TECHNIQUE: Serial axial series through the head were obtained without contrast. 2-D coronal and sagittal reformats were then obtained. FINDINGS: Brain: There is no acute large territorial infarct, intracranial hemorrhage, midline shift or mass effect. There are atherosclerotic vascular calcifications involving the bilateral carotid siphons. The sella and pineal gland regions appear unremarkable. Evaluation of the brainstem is limited due to beam hardening artifact. There is no evidence of cerebellar tonsillar herniation. Ventricles: There is no acute hydrocephalus. Basilar cisterns are patent. Paranasal sinuses: Well-aerated Mastoid air cells: Well-aerated. Calvarium: The bony calvarium is intact. Orbits: The bilateral globes are symmetric, without retrobulbar compressive mass lesion or hemorrhage. CT/Brain/Head without Contrast IMPRESSION: No acute intracranial pathology. Reading Location: [facility]
--- NOTE | 2025-02-01 06:21 | RAD_ITS ---
PROCEDURE: CHEST 1 VIEW (PORTABLE) 02/01/2025 REASON FOR EXAM: SYNCOPE TECHNIQUE: Frontal view of the chest. COMPARISON: June 22, 2023 FINDINGS: There is a left-sided cardiac device with wires in position. Heart size is upper normal. Central vascularity appears normal. There is no focal infiltrate or consolidation. There is no pneumothorax or effusion. There is no acute bony abnormality. Aortic calcifications are noted. RAD/Chest 1 View (Portable) IMPRESSION: No acute process is identified in the chest. Reading Location: [facility]
--- NOTE | 2025-02-01 06:21 | EKG12_ITS ---
Test Reason : BB Blood Pressure : */* mmHG Vent. Rate : 77 BPM Atrial Rate : * BPM P-R Int : * ms QRS Dur : 130 ms QT Int : 456 ms P-R-T Axes : * 41 254 degrees QTcB Int : 516 ms Wide QRS rhythm with frequent ventricular-paced complexes and Premature supraventricular complexes in a pattern of bigeminy Non-specific intra-ventricular conduction block Marked T wave abnormality, consider inferior ischemia Marked T wave abnormality, consider anterolateral ischemia Abnormal ECG Confirmed by JORI CONCEPCION ([id number]), school photograph editor KENNETH LUJAN ([id number]) on 02/02/2025 1:54:36 PM Referred By: Confirmed By: JORI CONCEPCION
--- NOTE | 2025-02-01 06:21 | CT_ITS ---
PROCEDURE: ABDOMEN/PELVIS W IV CONT ONLY 02/01/2025 REASON FOR EXAM: PAIN DIFFUSE, LOW BACK PAIN, SYNCOPE TECHNIQUE: ABDOMEN/PELVIS W IV CONT ONLY Coronal and Sagittal reconstruction series were provided. CONTRAST: 100 cc [id number] One or more dose reduction techniques were used (e.g., Automated exposure control, adjustment of the mA and/or kV according to patient size, use of iterative reconstruction technique. RADIATION DOSE SUMMARY: DLP: 870 mGycm COMPARISON: December 07, 2024 FINDINGS: Lung bases: There is a right pleural effusion measuring 2 cm in depth. There is a left pleural effusion measuring 1.7 cm in depth. Liver: Unremarkable Gallbladder: Unremarkable Spleen: Unremarkable Pancreas: Unremarkable Adrenals: Unremarkable Kidneys: There is a 1.2 cm cyst at the upper pole of the left kidney. There is a 0.3 cm nonobstructing stone in the lower pole of the left kidney. Bladder: Unremarkable Reproductive Organs: The prostate is heterogeneously enlarged, with calcifications noted. Bowel: There is a stent noted in the distal esophagus and stomach. Gastric distention is present. Gas and stool is noted in the colon with a moderate stool load. Small bowel loops are not distended. Appendix: Not demonstrated Lymph nodes: There is no visible pathologic adenopathy by size criteria. Vasculature: Atherosclerotic calcifications are noted. Peritoneum / Retroperitoneum: There is no free air or free fluid. Bones: Hardware is noted in the right hip. CT/Abdomen/Pelvis W IV Cont ONLY IMPRESSION: There is a right pleural effusion measuring 2 cm in depth. There is a left pleu ral effusion measuring 1.7 cm in depth. There is a 1.2 cm cyst at the upper pole of the left kidney. There is a 0.3 cm nonobstructing stone in the lower pole of the left kidney. There is a stent noted in the distal esophagus and stomach. Gastric distention is present. Reading Location: [facility]
[2025-02-01] MEDS: 0.9% Normal Saline (1000mL) 1,000 ML 999 ML IV ×3 (06:25→09:35)
--- NOTE | 2025-02-01 06:34 | EX.ED.DYSGE1 ---
HPI History of Present Illness Chief Complaint: Syncope Informant: patient and EMS Narrative Narrative: Hypotensive patient has had 2 syncopal episodes this morning 1 resulting on him falling forward and injuring his face where he has no pain right now. He is a very poor informant. He confirms that he has some low back pain, he states he had abdominal pain yesterday but none right now. Denies any chest pain or trouble breathing. Denies having a headache. EMS states patient is DNR but they do not have any paperwork with them. [facility] Medical History CMML (chronic myelomonocytic leukemia) Persistent atrial fibrillation Macrocytic anemia Debility Syncope Atrial fibrillation Pacemaker Hypertension Cardiology follow-up encounter History of Mohs micrographic surgery for skin cancer Nasal bleeding Left knee DJD Osteoarthritis of left knee Left knee pain Obesity Encephalopathy Wears glasses Cancer Alcohol use Ambulates with cane Anemia Back pain History of ulceration Former smoker H/O cataract Degenerative joint disease of right hip Bilateral lower extremity edema Complete heart block Essential (primary) hypertension NSVT (nonsustained ventricular tachycardia) Paroxysmal atrial flutter Paroxysmal atrial fibrillation Diverticulosis BPH (benign prostatic hyperplasia) Home Medications ?Medication ?Instructions ?Recorded ?Last Taken ?Type ascorbic acid (vitamin C) 500 mg 500 mg PO 1200 #0 tabs 05/28/22 Unknown Rx tablet hydrochlorothiazide 25 mg tablet 25 mg PO DAILY #0 tabs 05/28/22 Unknown Rx acetaminophen 500 mg tablet 1,000 mg PO Q6H PRN fever or pain 06/19/22 Unknown History folic acid 1 mg tablet 1,000 mcg PO DAILY 04/16/23 Unknown History pantoprazole 40 mg tablet,delayed 40 mg PO QDAY 03/08/24 Unknown History release prochlorperazine maleate 10 mg 10 mg PO Q6 PRN nausea and vomiting 03/08/24 Unknown History tablet apixaban 5 mg tablet (Eliquis) 5 mg PO BID #180 tabs 06/14/24 Unknown Rx lisinopril 20 mg tablet 20 mg PO QDAY #90 tabs 06/14/24 Unknown Rx fluticasone propionate 50 2 spray intranasal DAILY PRN 12/07/24 Unknown History mcg/actuation nasal allergy symptoms spray,suspension (24 Hour Allergy Relief) tamsulosin 0.4 mg capsule 0.4 mg PO QPM 12/07/24 Unknown History Held on 01/24/25. Instructions: cannot swallow sucralfate 1 gram tablet (Carafate) 1 g PO TID 01/24/25 Unknown History Allergy/AdvReac Type Severity Reaction Status Date / Time tree and shrub pollen Allergy Shortness Verified 02/01/25 06:13 of breath oxycodone AdvReac Hallucinati Verified 02/01/25 06:13 ons Family History Father CVA (cerebral vascular accident) Surgical History Status post total left knee replacement History of total left knee replacement (05/20/22) S/P total knee arthroplasty History of total right hip arthroplasty History of total right hip arthroplasty History of right hip replacement History of total hip arthroplasty H/O foot surgery History of removal of skin mole 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) Social History household members: spouse Smoking Status: Former smoker how long ago did patient quit smokin years ago alcohol intake: current alcohol intake frequency: 0-2 drinks per day substance use type: does not use caffeine: Yes Type: coffee Number of servings: 1 and tea Number of servings: 1 ROS ROS ED Review of Systems ROS Unobtainable: due to mental status Constitutional Constitutional ED: Denies fever(s) Cardiovascular Cardiovascular: Reports leg edema and syncope; Denies chest pain or radiating jaw, neck or arm pain Respiratory/Chest Respiratory/Chest: Denies dyspnea Gastrointestinal Gastrointestinal: Denies abdominal pain or nausea Musculoskeletal Musculoskeletal: Reports back pain; Denies neck pain Neurologic Neurologic: Denies headache(s) EXAM Physical Exam Const Vital Signs: 02/01/25 06:13 02/01/25 06:26 02/01/25 06:27 Temperature 97.7 F L 97.7 F L Temperature Source Oral Oral Pulse Rate 70 78 Respiratory Rate 23 H 17 Respiratory Effort Normal Respiratory Pattern Normal Blood Pressure 70/34 L 88/47 L Blood Pressure Mean 46 60 Blood Pressure Source Blood Pressure Position Blood Pressure Location Pulse Ox 100 100 Oxygen Delivery Method Nasal Cannula Nasal Cannula Oxygen Flow Rate (L/min) 3 3 02/01/25 06:27 02/01/25 06:36 02/01/25 06:40 Temperature Temperature Source Pulse Rate 71 74 Respiratory Rate 25 H 24 H Respiratory Effort Respiratory Pattern Blood Pressure 87/49 L 98/51 L Blood Pressure Mean 61 66 Blood Pressure Source Blood Pressure Position Blood Pressure Location Pulse Ox 100 100 100 Oxygen Delivery Method Nasal Cannula Nasal Cannula Nasal Cannula Oxygen Flow Rate (L/min) 3 3 2 02/01/25 06:52 02/01/25 07:33 02/01/25 08:40 Temperature 97.4 F L 97.7 F L Temperature Source Oral Oral Pulse Rate 73 70 Respiratory Rate 16 20 H Respiratory Effort Respiratory Pattern Blood Pressure 109/53 L 82/51 L 86/44 L Blood Pressure Mean 71 61 58 Blood Pressure Source Monitor Blood Pressure Position Semi-Fowlers Blood Pressure Location Right Arm Pulse Ox 100 100 Oxygen Delivery Method Nasal Cannula Nasal Cannula Oxygen Flow Rate (L/min) 2 2 02/01/25 08:42 02/01/25 08:55 Temperature 97.7 F L 97.7 F L Temperature Source Oral Oral Pulse Rate 70 70 Respiratory Rate 20 H 22 H Respiratory Effort Respiratory Pattern Blood Pressure 86/44 L 72/46 L Blood Pressure Mean 58 54 Blood Pressure Source Monitor Blood Pressure Position Semi-Fowlers Blood Pressure Location Right Arm Pulse Ox 100 100 Oxygen Delivery Method Nasal Cannula Nasal Cannula Oxygen Flow Rate (L/min) 2 2 Positive well nourished and well developed Constitutional Narrative: Pallorous, alert General Appearance ED: well developed, diaphoretic and NAD HEENT Reports TM's clear and moist mucous membranes HEENT Narrative: Diluted blood on the patient's lower lip and down onto the patient's chin. There is no facial tenderness. There is some blood intraorally but no tenderness or obvious nidus for bleeding including his poor dentition. normocephalic and atraumatic Tympanic Membrane ED: Yes TM's clear Eyes PERRL and EOMs intact bilaterally General Eye ED: Yes pale conjunctiva Neck full ROM and supple Resp normal respiratory effort and clear to auscultation bilaterally Resp Narrative: Poor respiratory effort but breathing spontaneously, shallow, without distress Cardio regular rate and regular rhythm GI non-distended GI Narrative: Diffusely tender. No Karri sign no Tafoya Lewis sign. Soft. Auscultation: normoactive bowel sounds Palpation: soft Back/Spine no CVA tenderness General Back: other FROM Extremity General Extremety ED: Yes edema; Negative for pulses abnormal or tenderness General Extremity: edema bilateral lower extremity Details: moderate (Symmetric, changes of chronic stasis dermatitis, nothing that looks to be acutely infected or tender); Negative for pulses abnormal Neuro CN's II-XII intact bilaterally and no sensory deficits noted Neuro Narrative: Symmetrically weak motor exam. Limited evaluation of orientation since patient has difficulty answering questions due to feeling poorly. No aphasia or dysarthria. Sensorium / Orientation: awake and alert Motor Exam: general weakness Skin no rashes or lesions noted and no wounds MDM MDM MDM Narrative Medical decision making narrative: Saw the patient just after EMS dropped him off, seems his blood pressure is 70/34, he is sitting up, alert, answering questions somewhat, and then seemed to get a little spacey although his eyes were still open, still pacing around 70, so we laid him supine quickly, nurse was starting an IV during my evaluation and so we started to give him IV fluids soon after that. He came to fairly quickly before we even started the fluids, and shortly thereafter his blood pressure responded and is 98/51 after about half of that, and later, 109/53. While patient was in imaging the arrived and I spoke with her. She knows his history well. She states he was in the hospital about a month ago for dysphagia, and instead of an esophageal stricture, they found a mass. He had an EGD and underwent stenting send now he can eat soft things without any difficulty. He has had no bleeding lately including melena or bright red blood per rectum. He is still on anticoagulation for A-fib. This morning, he got up and then suddenly did not feel well and seemed to look like he was going to pass out to his helped lower him to the floor, he did not hit his face or his head as previously we were concerned about because he has blood emanating down his chin from his mouth. She said that he may have spit it up and may have come from his esophagus, we are not sure. The patient does not have any chest or throat discomfort. He has been eating and drinking fairly well no recent illness since he has been home which has been about a month. Yesterday he was walking up and down the driveway. Has a history of CMML and follows with oncology Dr. Alexander, periodically gets blood transfusions he had a unit a week or so ago. He was on chemotherapy for this until December when the esophagus issues were noted, chemotherapy discontinued, he was thrombocytopenic as a result, he was given platelet transfusions in [place]. Given this information, the possibility of an upper GI bleed and acute blood loss anemia with syncope, added a dose of IV pantoprazole. Appears he is on that daily, but he has not had morning medications today since he presents early in the morning. With regards to the patient's workup, 1 view chest x-ray is unremarkable on my interpretation, as is his CT of the head. Both confirm by radiology. A septic workup was obtained, but when his hemoglobin came back at 6.1, my suspicion is that this is hemorrhagic shock due to blood loss. His platelets are better now at 76. CT of his abdomen and pelvis was reviewed by myself as well as radiologist, I agree with his interpretation showing esophageal stent is also partially in the stomach, and a distended abdomen, no free air. He has had no rectal bleeding. On reevaluation he is continuing to spit up bright red blood. He feels like sometimes he is vomiting although he has not been retching at all. His BUN is elevated. I suspect this is all upper GI bleeding related to the stent until proven otherwise. I discussed this with patient and , he has been getting blood transfusions all long because of his leukemia, he is agreement to getting a blood transfusion here a type and cross for 3 units given that he is still bleeding, although his pressure is better with the IV fluids. Troponin is slightly elevated likely due to hypotension prior to arrival, his EKG does not show any type of acute injury. I think he just needs blood. However he also needs hemorrhage control. He is anticoagulated on Eliquis last dose was last night around 1999. Awaiting GI to return call, and [place] ordered to be given stat. GI not able to return call immediately so I am having nursing place an NG tube since the patient continues to spit up blood significantly. Discussed with Dr. Menchaca and we looked at the images of the CT abdomen/pelvis together. The esophageal stent appears to possibly have migrated down into the stomach, and is so far in, that the end of the stent is sitting against the wall of the stomach, and this may be the source of the bleeding. There is no radiographic evidence of perforation or free air at this time. Given that and the patient's clinical condition, he thinks the patient would be better served at [facility], I tend to agree. Attempted to discuss with them and secure an auto launch for the patient however we were having technical difficulties with their telephones and we were not able to communicate. This was remedied; I then was able to discuss with transfer center, critical care transport, and critical care medicine Dr. Pascual who accepted the patient, and [facility] is arranging helicopter EMS for us. In the meantime, nurses placed the NG but there was no blood or other contents coming out with light intermittent wall suction. A KUB was obtained and I read it in real-time, the tip of the NG tube appears to be hung up at the very proximal aspect of the stent. For this reason, I had nursing pull the NG and remove it. Patient's blood pressure at this time is 89/56, which I think is relatively adequate to continue volume resuscitation without the need for pressors, he is protecting his own airway at this time. We will continue caring for him closely until helicopter EMS arrives for transport. History & Record Review Discussion w/independent historian: EMS personnel, Patient and Significant other Lab Data Attestation: I reviewed the patient's lab results. Labs: Laboratory Results - last 24 hr 02/01/25 02/01/25 02/01/25 06:20 06:21 07:00 WBC 13.6 H RBC 1.96 L Hgb 6.1 L Hct 19.1 L MCV 97.4 H MCH 31.1 MCHC 31.9 L RDW Std Deviation 62.2 H RDW Coeff of Humza 17.5 H Plt Count 76 L MPV 10.6 Immature Gran % (Auto) 2.800 H Neut % (Auto) 47.1 Lymph % (Auto) 38.1 Rhea % (Auto) 10.4 H Eos % (Auto) 1.2 Baso % (Auto) 0.4 Absolute Neuts (auto) 6.4 Absolute Lymphs (auto) 5.20 H Nucleated RBC % 0 Differential Comment COMMENT Platelet Estimate MOD DEC PT 18.8 H INR 1.5 APTT 34.7 Sodium 136 Potassium 3.9 Chloride 98 Carbon Dioxide 21.3 Anion Gap 17 H BUN 33 H Creatinine 0.90 Estim Creat Clear Calc 57.83 Est GFR (MDRD) Non-Af 82 BUN/Creatinine Ratio 36.3 H Glucose 218 H Lactic Acid 6.8 H* Calcium 8.6 Total Bilirubin 0.38 AST 33 ALT 25 Alkaline Phosphatase 245 H Troponin T High Sens 51 H Total Protein 5.1 L Albumin 2.4 L Globulin 2.7 Albumin/Globulin Ratio 0.9 Blood Type Cancelled O POSITIVE Antibody Screen Cancelled NEGATIVE Crossmatch See Detail Radiography Diagnostic Testing: Clinical Impression(s) from Imaging Studies Abdomen/Pelvis CT 02/01/25 06:21 IMPRESSION: There is a right pleural effusion measuring 2 cm in depth. There is a left pleural effusion measuring 1.7 cm in depth. There is a 1.2 cm cyst at the upper pole of the left kidney. There is a 0.3 cm nonobstructing stone in the lower pole of the left kidney. There is a stent noted in the distal esophagus and stomach. Gastric distention is present. Reading Location: [facility] Brain CT 02/01/25 06:21 IMPRESSION: No acute intracranial pathology. Reading Location: [facility] Chest X-Ray 02/01/25 06:21 IMPRESSION: No acute process is identified in the chest. Reading Location: [facility] Rhythm Strip Rhythm Strip: paced Rate: 70 (w/ pulses at same rate, while BP 70/34) Ectopy: None EKG Initial EKG: Attestation: I personally reviewed and interpreted this EKG as follows: Interpretation: No Acute Injury Pattern, Atrial Fibrillation (underlying) and Paced (bigeminy) Management Discussion w/another healthcare provider: Space Planner (gi friend; [facility] rojelio Pascual) Critical Care Time Critical Care Time: Yes Critical care time (excluding procedures): 75-104 minutes (77 min), Including time spent:, Discussing w/Patient &/or Family/Shoe Reconditioner, Discussing w/Consultants, Arranging Admission or Transfer and Performing Direct Patient Care at Bedside Discharge Plan Triage Chief Complaint: Syncope ED Provider: Demetri Martinez Dx/Rx/DC Orders Clinical Impression: Hemorrhagic shock, Recurrent syncope, ABLA (acute blood loss anemia), Acute upper GI bleeding, Migrated esophageal stent, CMML (chronic myelomonocytic leukemia), Thrombocytopenia Prescriptions: No Action acetaminophen 500 mg tablet 1,000 mg PO Q6H PRN (Reason: fever or pain) prochlorperazine maleate 10 mg tablet 10 mg PO Q6 PRN (Reason: nausea and vomiting) pantoprazole 40 mg tablet,delayed release (DR/EC) 40 mg PO QDAY ascorbic acid (vitamin C) 500 mg Tablet 500 mg PO 1200 Qty: 0 0RF hydrochlorothiazide 25 mg Tablet 25 mg PO DAILY Qty: 0 0RF folic acid 1 mg tablet 1,000 mcg PO DAILY tamsulosin 0.4 mg capsule 0.4 mg PO QPM fluticasone propionate [24 Hour Allergy Relief] 50 mcg/actuation spray,suspension 2 spray intranasal DAILY PRN (Reason: allergy symptoms) Rx Instructions: administer into each nostril sucralfate [Carafate] 1 gram tablet 1 g PO TID lisinopril 20 mg tablet 20 mg PO QDAY Qty: 90 3RF Eliquis 5 mg tablet 5 mg PO BID Qty: 180 3RF Rx Instructions: resume tomorrow night Primary Care Provider: Angel Luis Roger Referrals: Angel Luis Roger MD [Primary Care Provider] - Print Language: Norwegian Disposition Disposition: Acute Care Hospital Discharge Location: [facility]
[2025-02-01 06:43] LABS: Hematocrit 19.1 % (40-54); Hemoglobin 6.1 g/dL (13.0-16.5); Immature Granulocytes Count 0.380 X10^3/uL (0.0-0.0); Mean Corp Hgb Conc 31.9 g/dL (32-36); Mean Corpuscular Volume 97.4 fL (80-94); Mean Platelet Vol. 10.6 fl (6.2-12.0); NRBC Flagged by Analyzer 0 % (0-5); POSITIVE COUNT YES; POSITIVE DIFFERENTIAL YES; Platelet Count 76 K/mm3 (150-450); RBC Distribution Width CV 17.5 % (11.6-14.6); RBC Distribution Width SD 62.2 fl (35.1-43.9); Red Blood Count 1.96 M/mm3 (4.6-6.2); White Blood Count 13.6 K/mm3 (4.4-11.0)
[2025-02-01 07:04] LABS: Prothrombin Time (Protime)PT. 18.8 SECONDS (11.7-14.9)
[2025-02-01 07:05] LABS: Partial Thromboplast Time 34.7 Seconds (24.1-36.2)
[2025-02-01] MEDS: Pantoprazole Sodium 40 MG in 0.9% Normal Saline (100mL MB+) 100 ML 300 MG IV (07:25)
[2025-02-01 07:45] LABS: AST(SGOT) 33 U/L (<=37); Alanine Aminotransfer ALT/SGPT 25 U/L (<=46); Albumin, Serum 2.4 g/dL (3.4-4.8); Alkaline Phosphatase 245 U/L (40-129); Anion Gap 17 (5-15); BUN 33 mg/dL (4-19); BUN/Creat Ratio 36.3 RATIO (10-20); Calcium,Total 8.6 mg/dL (7.6-11.0); Carbon Dioxide 21.3 mmol/L (21.0-32.0); Chloride 98 mmol/L (98-108); Differential Indicated SCAN CRITERIA MET; Estimated Creatinine Clearance 57.83 ml/min (50-250); Globulin 2.7 g/dL (2.2-4.2); Glucose 218 mg/dL (70-99); Potassium 3.9 mmol/L (3.3-5.1); Troponin T High Sensitivity 51 ng/L (<=22)
[2025-02-01] MEDS: HUM PROTHROMBIN CPLX LANS IV (08:47)
[2025-02-01] MEDS: VIAFLEX IV (08:47)
[2025-02-01] MEDS: Oxymetazoline 0.05% 1 SPRAY SPRAY.BTL 2 SPRAY NASAL (09:01)
--- NOTE | 2025-02-01 09:15 | RAD_ITS ---
PROCEDURE: ABDOMEN SINGLE VIEW (PORTABLE) 02/01/2025 REASON FOR EXAM: NGT PLACEMENT TECHNIQUE: ABDOMEN SINGLE VIEW (PORTABLE) COMPARISON: None FINDINGS: The tip of the nasogastric tube is at the gastroesophageal junction. A covered stent is seen at the GE junction extending into the stomach. RAD/Abdomen Single View (Portable) IMPRESSION: The tip of the nasogastric tube is at the gastroesophageal junction. Stent is seen at the GE junction extending into the stomach. Reading Location: [facility]
--- NOTE | 2025-02-01 09:20 | RAD_ITS ---
PROCEDURE: ABDOMEN SINGLE VIEW 02/01/2025 REASON FOR EXAM: NG TECHNIQUE: ABDOMEN SINGLE VIEW COMPARISON: Prior study done earlier. FINDINGS: The tip of the nasogastric tube is at the gastroesophageal junction. This is unchanged. RAD/Abdomen Single View IMPRESSION: The tip of the nasogastric tube is at the gastroesophageal junction. It is unc hanged. Reading Location: [facility]
[2025-02-01 10:36] LABS: Reflex Lactate? Y
--- NOTE | 2025-02-01 10:43 | ED.RN ---
THIS NURSE WAS ADVISED BY AURORA Perry RN TO GET THE OTHER 2 UNITS OF BLOOD ORDERED FOR THIS PT UPON THE [facility] REQUESTING IT. THIS NURSE GAVE THE BLOOD TO THE [facility]. THIS NURSE FORGOT TO SCAN IN, [facility] WAS ADMINISTERING DURING TRANSFER.
== END 2025-02-01 10:22 | disposition short-term general hospital (02) ==
PROVIDERS: Emergency Provider Emergency Medicine; PCP Internal Medicine; Visit Provider Emergency Medicine
DX: T85.528A Displacement of other gastrointestinal prosthetic devices, implants and grafts, initial encounter (principal); C93.10 Chronic myelomonocytic leukemia not having achieved remission; R57.8 Other shock; I48.19 Other persistent atrial fibrillation; D62 Acute posthemorrhagic anemia; Z87.891 Personal history of nicotine dependence; K92.2 Gastrointestinal hemorrhage, unspecified; I10 Essential (primary) hypertension; R55 Syncope and collapse; D69.6 Thrombocytopenia, unspecified; Z92.21 Personal history of antineoplastic chemotherapy; Z79.01 Long term (current) use of anticoagulants; Z95.0 Presence of cardiac pacemaker; Z79.899 Other long term (current) drug therapy; Z96.652 Presence of left artificial knee joint; Z96.641 Presence of right artificial hip joint
CPT/HCPCS: 36430; 43752; 70450; 71045; 74018; 74177; 80053; 83605; 84484; 85025; 85610; 85730; 86850; 86900; 86901; 87040; 87077; 87149; 87186; 93005; 96361; 96365; 99285; P9016; Q9967; A4216; J7165